=== PATIENT | female | born 1970 | race Caucasian/White ===

== ENCOUNTER → 2017-03-30 | Outpatient (CLI) | payer OTHER ==
[~2017-03-30] MED LIST: AMOX500C3 PO; COLE1TAB4 PO; LAMO100T16 PO; METO50TA7 PO; PRENTAB26 PO; TPRSR/50 PO
== END | disposition home or self-care (01) ==
LOC: C.PAPS 16:59
PROVIDERS: ATTEND Obstetrics & Gynecology
DX: Z12.4 Encounter for screening for malignant neoplasm of cervix (principal)

== ENCOUNTER 2019-12-22 13:07 | Observation (INO) ==
[2019-12-22] MEDS ORDERED: ONDANSETRON INJ 2 MG/ML 2 ML VIAL IV STA (13:28)
[2019-12-22] MEDS ORDERED: MoRPHine SULFATE 4 MG/ML 1 ML CARP\\VIAL IV STA (13:28)
[2019-12-22] MEDS ORDERED: ACETAMINOPHEN 1,000 MG/100 ML VIAL IV STA (13:28)
[2019-12-22] MEDS ORDERED: CEFAZOLIN 3000MG/72.5 ML BAG IV STA (13:33)
--- NOTE | 2019-12-22 13:39 | Emergency Department Note ---
Impression & Plan Trimalleolar fracture of ankle, open, Fall ED Provider Note NAME: ELENI WILL AGE: 49 SEX: F ARRIVES VIA: Ambulance INFORMANT: Patient, ED PROVIDER(S): Bairon Adkins MD CHIEF COMPLAINT: Left ankle pain, deformity. PLAN: Disposition: Admit. MEDICAL DECISION MAKING: The patient is a pleasant 49-year-old woman with a past medical history of seizure disorder well-controlled on Lamictal who presents emergency department with left ankle deformity after she slipped down steps and twisted her ankle. Denies head strike to LOC. Patient reports her last oral intake was 730 this morning. She otherwise reports feeling healthy prior to today. On arrival patient is uncomfortable but no acute distress, afebrile stable vital signs. She does have deformity of the left ankle with 1 cm wound of the left medial malleolus that appears consistent with open fracture. Plain film confirms trimalleolar fracture. Given suspicion for open fracture the patient was ordered for prophylactic Ancef and case was discussed with orthopedic surgery on-call, Dr. Martinez, who was in the operating room and agrees with plan for red uction with sedation in the ED and plan for likely OR., Basic blood work, EKG and chest x-ray were ordered. The patient's was consented for closed reduction under sedation, with the assistance of Dr. Martini, which was successful without complication per procedure note. Post reduction xray with near anatomic alignment achieved. WBC 12.2, nonspecific. H/H and platelets wnl. Chemistry without significant acidosis. CXR negative for acute process. EKG without overt acute ischemia. Patient admitted/taken to OR. Triage Nursing notes reviewed and agree them. Prior medical records reviewed Vital Signs: reviewed and remarkable for no significant abnormalities Differential diagnosis: Fracture, subluxation, dislocation, contusion, ligamentous injury, neurovascular, compartment syndrome, rhabdomyolysis, as well as other pathologies. ER treatment provided: See below. Diagnostics interpreted by me: ECG: NSR, 76 bpm, no ectopy, nonspecific TWA, no overt ST elevation or depression. Cardiac Monitoring: An order for continuous cardiac monitoring was placed and demonstrated NSR, 76 bpm, no ectopy Laboratory studies: See below Imaging studies: LEFT ANKLE 2 VIEWS CLINICAL HISTORY: Fall with left ankle injury. FINDINGS: Crosstable AP and lateral views of the left ankle are obtained. No prior studies are available for comparison at the time of dictation. The skeletal structures are well mineralized. There are distracted fractures of the medial and lateral malleoli. There is also a fracture of the posterior malleolus of the tibia. There is associated ankle joint dislocation. There is dorsal distraction of the talus by approximately 2 cm the tibiotalar articulation. There is also lateral distraction of the talus by approximately 1.5 cm. Joint effusion is noted. Soft tissue edema is present around the ankle. IMPRESSION: Trimalleolar fracture and dislocation of the ankle as above. -- XR chest 1V portable CLINICAL HISTORY: preop preoperative evaluation COMPARISON STUDY: 03/08/2014 FINDINGS: The bones soft tissues and hemidiaphragms are normal. The cardiomediastinal silhouette is normal. The lungs are clear. The pulmonary vasculature is normal. IMPRESSION: Negative chest. -- XR ankle LT 2V CLINICAL HISTORY: post reduction. Left ankle fracture/dislocation. COMPARISON STUDY: Left ankle 12/22/2019. FINDINGS: Interval reduction of the left ankle trimalleolar fracture and dislocation. The alignment is near-anatomic. Diffuse soft tissue swelling. Overlying splint material obscures fine bony detail. The posterior malleolus fragment demonstrates 2 mm of posterior displacement. IMPRESSION: Status post reduction of the left ankle trimalleolar fracture and dislocation with near-anatomic alignment. Consultation(s[place] [facility] [place] HPI: The patient is a pleasant 49-year-old woman with a past medical history of seizure disorder well-controlled on Lamictal who presents emergency department with left ankle deformity after she slipped down steps and twisted her ankle. Denies head strike to LOC. Patient reports her last oral intake was 730 this morning. She otherwise reports feeling healthy prior to today. ROS: See above HPI for pertinent positives & negatives. A total of 10 systems reviewed and were otherwise negative. PAST MEDICAL HISTORY:See Below PAST SURGICAL HISTORY:See Below FAMILY HISTORY:See Below SOCIAL HISTORY:See Below HOME MEDICATIONS:See Below ALLERGIES:See Below VITALS:See Below PHYSICAL EXAMINATION: GENERAL: Awake, alert, uncomfortable-appearing, in no distress HENT: Normocephalic, atraumatic. Oropharynx with dry mucous membranes and otherwise unremarkable. EYES: Normal conjunctiva. Sclera non-icteric. EOMI. No nystamgus. PEARRL. NECK: Supple. No nuchal rigidity. FROM. No JVD. RESPIRATORY: Clear to auscultation. CARDIAC: Regular rate, normal rhythm. Extremities warm and well perfused. Pulses equal. ABDOMEN: Soft, non-distended. No tenderness to palpation. No rebound or guarding. No masses. RECTAL: Deferred. MUSCULOSKELETAL: Chest examination reveals no tenderness. The back is symmetrical on inspection without obvious abnormality. There is no CVA tenderness to palpation. No joint edema. LOWER EXTREMITIES: Calves are equal size bilaterally and non-tender. No edema. No discoloration. NEURO: Normal sensorium. No sensory or motor deficits noted. SKIN: No rash or jaundice noted. ED COURSE: Procedures: Close Ankle Reduction Indication: Trimalleolar Fx. Verbal consent obtained. Risks and benefits were explained with the usual customary discussion. A time out was taken. Neurovascular examination before the procedure revealed no deficits. The patient's left ankle trimalleolar fracture was reduced by placing the patient supine held elevated and applying gentle downward inline and anterior traction on the foot. This resulted in an easy reduction without complication. Neurovascular examination after the procedure revealed no deficits. The patient's 1 cm medial malleolus wound was cleaned and irrigated. This was probed with sterile swab and is suspicious for puncture wound. Dressed with Xeroform and splinted with posterior/sugar tong splint. The patient had significant pain relief and tolerated the procedure well. 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 Beliefs That Will Affect Care: None Current Living Situation: Family Current Living Situation Comment: LIVES WITH SON Other Information That Helps Us Care for You: No Feels Safe at Home: Yes Safety Concerns: Feels Safe At This Time Smoking Status: Former smoker Tobacco Type: cigarettes ; Do You Dip or Chew Tobacco: No ; Smoking End Date: 11/20/2014 ; Second Hand Exposure: No ; Tobacco Cessation Education Requested by Patient: No Hx Alcohol Use: No Hx Substance Use: No Allergies Allergies Allergy/AdvReac Type Severity Reaction Status Date / Time No Known Allergies Allergy Verified 12/22/19 15:15 Home Meds Home Medications Medication Instructions Recorded Confirmed PNV cmb#[id number]-ferrous fumarate-FA 1 tab PO DAILY 02/25/19 12/22/19 [] cyanocobalamin (vitamin B-12) 1,000 mcg PO DAILY 02/25/19 12/22/19 [Vitamin B-12] fluticasone furoate-vilanterol 1 inh INHALATION DAILY 02/25/19 12/22/19 [Breo Ellipta] lamotrigine [Lamictal] 100 mg PO BID 02/25/19 12/22/19 metoprolol succinate [Toprol XL] 100 mg PO BID 02/25/19 12/22/19 omeprazole 40 mg PO HS 12/22/19 12/22/19 Results & Data (ED) Vital Signs Vital Signs - 24 hr 12/22/19 13:10 12/22/19 13:17 12/22/19 13:18 Temperature 36.8 C Temperature Source Oral Pulse Rate 100 H 113 H 105 H Pulse Rate [Apical] Pulse Rate [Left Finger] Pulse Rate from SpO2 Sensor 102 H 110 H Pulse Rhythm Regular Pulse Rhythm [Apical] Pulse Strength Normal Pulse Strength [Apical] Respiratory Rate 18 17 20 Respiratory Effort / Characteristics Non-Labored Spontaneous Respiratory Depth Normal Respiratory Pattern Regular Blood Pressure 139/108 H 139/108 H Blood Pressure [Right Arm] Blood Pressure Mean 116 118 Blood Pressure Mean [Right Arm] Blood Pressure Position Lying Blood Pressure Position [Right Arm] Pulse Oximetry 100 100 100 Oxygen Delivery Method Room Air Oxygen Flow Rate Sepsis Action Taken by Nursing No Action Required End-Tidal CO2 End Tidal CO2 (18-54mmHg) 12/22/19 13:30 12/22/19 13:31 12/22/19 13:43 Temperature Temperature Source Pulse Rate 99 H 105 H 92 H Pulse Rate [Apical] Pulse Rate [Left Finger] Pulse Rate from SpO2 Sensor 103 H 84 Pulse Rhythm Pulse Rhythm [Apical] Pulse Strength Pulse Strength [Apical] Respiratory Rate 19 23 14 Respiratory Effort / Characteristics Respiratory Depth Respiratory Pattern Blood Pressure 122/84 120/80 Blood Pressure [Right Arm] Blood Pressure Mean 89 93 Blood Pressure Mean [Right Arm] Blood Pressure Position Blood Pressure Position [Right Arm] Pulse Oximetry 100 99 Oxygen Delivery Method Oxygen Flow Rate Sepsis Action Taken by Nursing End-Tidal CO2 End Tidal CO2 (18-54mmHg) 12/22/19 13:55 12/22/19 14:00 12/22/19 14:01 Temperature Temperature Source Pulse Rate 99 H 101 H 102 H Pulse Rate [Apical] 99 H Pulse Rate [Left Finger] Pulse Rate from SpO2 Sensor 105 H 102 H Pulse Rhythm Regular Pulse Rhythm [Apical] Regular Pulse Strength Pulse Strength [Apical] Normal Respiratory Rate 16 16 Respiratory Effort / Characteristics Non-Labored Spontaneous Respiratory Depth Normal Respiratory Pattern Regular Blood Pressure 141/88 H Blood Pressure [Right Arm] 141/88 H Blood Pressure Mean 106 Blood Pressure Mean [Right Arm] 105 Blood Pressure Position Blood Pressure Position [Right Arm] Sitting Pulse Oximetry 100 100 100 Oxygen Delivery Method Nasal Cannula Room Air Oxygen Flow Rate 2 2 Sepsis Action Taken by Nursing End-Tidal CO2 17 23 End Tidal CO2 (18-54mmHg) 26 12/22/19 14:05 12/22/19 14:07 12/22/19 14:10 Temperature Temperature Source Pulse Rate 98 H 100 H Pulse Rate [Apical] 97 H 100 H Pulse Rate [Left Finger] Pulse Rate from SpO2 Sensor 99 H 103 H Pulse Rhythm Pulse Rhythm [Apical] Regular Regular Pulse Strength Pulse Strength [Apical] Normal Normal Respiratory Rate 18 20 Respiratory Effort / Characteristics Non-Labored Spontaneous Non-Labored Spontaneous Respiratory Depth Normal Normal Respiratory Pattern Regular Regular Blood Pressure 99/68 L 110/73 Blood Pressure [Right Arm] 99/68 L 110/73 Blood Pressure Mean 88 89 Blood Pressure Mean [Right Arm] 78 85 Blood Pressure Position Blood Pressure Position [Right Arm] Sitting Sitting Pulse Oximetry 100 100 100 Oxygen Delivery Method Nasal Cannula Nasal Cannula Oxygen Flow Rate 2 2 Sepsis Action Taken by Nursing End-Tidal CO2 17 23 End Tidal CO2 (18-54mmHg) 28 24 12/22/19 14:12 12/22/19 14:13 12/22/19 14:15 Temperature Temperature Source Pulse Rate 90 87 Pulse Rate [Apical] 95 H Pulse Rate [Left Finger] Pulse Rate from SpO2 Sensor 91 H 89 Pulse Rhythm Pulse Rhythm [Apical] Regular Pulse Strength Pulse Strength [Apical] Normal Respiratory Rate 21 Respiratory Effort / Characteristics Non-Labored Spontaneous Respiratory Depth Normal Respiratory Pattern Regular Blood Pressure 106/73 102/68 Blood Pressure [Right Arm] 106/73 Blood Pressure Mean 83 73 Blood Pressure Mean [Right Arm] 84 Blood Pressure Position Blood Pressure Position [Right Arm] Sitting Pulse Oximetry 100 100 100 Oxygen Delivery Method Nasal Cannula Oxygen Flow Rate 2 Sepsis Action Taken by Nursing End-Tidal CO2 19 26 End Tidal CO2 (18-54mmHg) 24 12/22/19 14:17 12/22/19 14:20 12/22/19 14:23 Temperature Temperature Source Pulse Rate 88 94 H 83 Pulse Rate [Apical] 89 Pulse Rate [Left Finger] Pulse Rate from SpO2 Sensor 89 93 H 86 Pulse Rhythm Pulse Rhythm [Apical] Regular Pulse Strength Pulse Strength [Apical] Normal Respiratory Rate 18 Respiratory Effort / Characteristics Non-Labored Spontaneous Respiratory Depth Normal Respiratory Pattern Regular Blood Pressure 106/77 113/80 111/72 Blood Pressure [Right Arm] 106/77 Blood Pressure Mean 82 92 82 Blood Pressure Mean [Right Arm] 86 Blood Pressure Position Blood Pressure Position [Right Arm] Sitting Pulse Oximetry 100 84 L 100 Oxygen Delivery Method Nasal Cannula Oxygen Flow Rate 2 Sepsis Action Taken by Nursing End-Tidal CO2 27 24 24 End Tidal CO2 (18-54mmHg) 12/22/19 14:26 12/22/19 14:30 12/22/19 14:31 Temperature Temperature Source Pulse Rate 98 H 96 H 89 Pulse Rate [Apical] Pulse Rate [Left Finger] Pulse Rate from SpO2 Sensor 97 H 96 H 91 H Pulse Rhythm Pulse Rhythm [Apical] Pulse Strength Pulse Strength [Apical] Respiratory Rate Respiratory Effort / Characteristics Respiratory Depth Respiratory Pattern Blood Pressure 104/73 101/79 Blood Pressure [Right Arm] Blood Pressure Mean 80 82 Blood Pressure Mean [Right Arm] Blood Pressure Position Blood Pressure Position [Right Arm] Pulse Oximetry 100 100 100 Oxygen Delivery Method Oxygen Flow Rate Sepsis Action Taken by Nursing End-Tidal CO2 End Tidal CO2 (18-54mmHg) 12/22/19 14:45 12/22/19 15:00 12/22/19 15:01 Temperature Temperature Source Pulse Rate 90 95 H Pulse Rate [Apical] 100 H Pulse Rate [Left Finger] Pulse Rate from SpO2 Sensor 89 96 H Pulse Rhythm Pulse Rhythm [Apical] Regular Pulse Strength Pulse Strength [Apical] Normal Respiratory Rate 20 Respiratory Effort / Characteristics Non-Labored Spontaneous Respiratory Depth Normal Respiratory Pattern Regular Blood Pressure 99/71 L Blood Pressure [Right Arm] 101/79 Blood Pressure Mean 76 Blood Pressure Mean [Right Arm] 86 Blood Pressure Position Blood Pressure Position [Right Arm] Sitting Pulse Oximetry 100 100 100 Oxygen Delivery Method Room Air Oxygen Flow Rate Sepsis Action Taken by Nursing End-Tidal CO2 End Tidal CO2 (18-54mmHg) 12/22/19 15:30 12/22/19 16:00 12/22/19 16:41 Temperature Temperature Source Pulse Rate 86 84 Pulse Rate [Apical] Pulse Rate [Left Finger] Pulse Rate from SpO2 Sensor Pulse Rhythm Pulse Rhythm [Apical] Pulse Strength Pulse Strength [Apical] Respiratory Rate 16 Respiratory Effort / Characteristics Respiratory Depth Respiratory Pattern Blood Pressure 109/62 Blood Pressure [Right Arm] Blood Pressure Mean 77 Blood Pressure Mean [Right Arm] Blood Pressure Position Blood Pressure Position [Right Arm] Pulse Oximetry 95 Oxygen Delivery Method Room Air Oxygen Flow Rate Sepsis Action Taken by Nursing End-Tidal CO2 End Tidal CO2 (18-54mmHg) 12/22/19 16:51 12/22/19 19:31 Temperature 36.5 C 36.8 C Temperature Source Oral Temporal Artery Scan Pulse Rate Pulse Rate [Apical] 91 H Pulse Rate [Left Finger] 86 Pulse Rate from SpO2 Sensor Pulse Rhythm Pulse Rhythm [Apical] Regular Pulse Strength Pulse Strength [Apical] Respiratory Rate 16 18 Respiratory Effort / Characteristics Non-Labored Spontaneous Non-Labored Spontaneous Respiratory Depth Normal Normal Respiratory Pattern Regular Regular Blood Pressure Blood Pressure [Right Arm] 102/73 96/58 L Blood Pressure Mean Blood Pressure Mean [Right Arm] 82 70 Blood Pressure Position Blood Pressure Position [Right Arm] Sitting Lying Pulse Oximetry 98 98 Oxygen Delivery Method Room Air Oxymask Oxygen Flow Rate 8 Sepsis Action Taken by Nursing End-Tidal CO2 End Tidal CO2 (18-54mmHg) Laboratory Data Attestation: I reviewed the patient's lab results. Result diagrams: 12/22/19 13:14 12/22/19 13:14 Lab Results 12/22/19 12/22/19 12/22/19 Range/Units 13:14 13:14 13:14 WBC 12.25 H (4.8-10.8) K/uL RBC 3.76 L (4.2-5.4) M/uL Hgb 13.3 (12.0-16.0) g/dL Hct 39.4 (37-47) % MCV 104.8 H (80-100) fL MCH 35.4 H (25-34) pg MCHC 33.8 (32-36) g/dL RDW Std Deviation 61.6 H (36.4-46.3) fL RDW Coeff of Gabriel 16.1 H (11.5-14.5) % Plt Count 231 (130-400) K/uL MPV 11.9 H (7.4-10.4) fL Immature Gran % (Auto) 0.2 % Neut % (Auto) 50.5 % Lymph % (Auto) 36.3 % [place] % (Auto) 11.8 % Eos % (Auto) 1.0 % Baso % (Auto) 0.2 % Neut # (Auto) 6.17 (1.4-6.5) K/uL Lymph # (Auto) 4.45 H (1.2-3.4) K/uL [place] # (Auto) 1.45 H (0.11-0.59) K/uL Eos # (Auto) 0.12 (0-0.5) K/uL Baso # (Auto) 0.03 (0-0.2) K/uL Immature Gran # (Auto) 0.03 H (0.00-0.02) K/uL PT 10.4 (9.0-12.0) Seconds INR 1.0 (0.9-1.1) APTT (21.0-31.0) Seconds PTT Ratio Sodium 135 L (136-145) mmol/L Potassium 3.4 L (3.5-5.1) mmol/L Chloride 105 (98-107) mmol/L Carbon Dioxide 20 L (21-32) mmol/L Anion Gap 10.0 (3-11) BUN 3 L (7-18) mg/dl Creatinine 0.84 (0.6-1.2) mg/dl Est Cr Clr Drug Dosing 72.1 ml/min Est GFR ( Amer) 93.9 Est GFR (Non-Af Amer) 81.0 BUN/Creatinine Ratio 3.9 L (10-20) Glucose 96 (70-99) mg/dl Calcium 8.4 L (8.5-10.1) mg/dl HCG, Qual (Negative) COVID-19 PCR (Negative) SARS-CoV-2 RNA (RT-PCR) Blood Type Antibody Screen 12/22/19 12/22/19 12/22/19 Range/Units 13:14 13:14 14:22 WBC (4.8-10.8) K/uL RBC (4.2-5.4) M/uL Hgb (12.0-16.0) g/dL Hct (37-47) % MCV (80-100) fL MCH (25-34) pg MCHC (32-36) g/dL RDW Std Deviation (36.4-46.3) fL RDW Coeff of Gabriel (11.5-14.5) % Plt Count (130-400) K/uL MPV (7.4-10.4) fL Immature Gran % (Auto) % Neut % (Auto) % Lymph % (Auto) % [place] % (Auto) % Eos % (Auto) % Baso % (Auto) % Neut # (Auto) (1.4-6.5) K/uL Lymph # (Auto) (1.2-3.4) K/uL [place] # (Auto) (0.11-0.59) K/uL Eos # (Auto) (0-0.5) K/uL Baso # (Auto) (0-0.2) K/uL Immature Gran # (Auto) (0.00-0.02) K/uL PT (9.0-12.0) Seconds INR (0.9-1.1) APTT 24.0 (21.0-31.0) Seconds PTT Ratio 0.9 Sodium (136-145) mmol/L Potassium (3.5-5.1) mmol/L Chloride (98-107) mmol/L Carbon Dioxide (21-32) mmol/L Anion Gap (3-11) BUN (7-18) mg/dl Creatinine (0.6-1.2) mg/dl Est Cr Clr Drug Dosing ml/min Est GFR ( Amer) Est GFR (Non-Af Amer) BUN/Creatinine Ratio (10-20) Glucose (70-99) mg/dl Calcium (8.5-10.1) mg/dl HCG, Qual Negative (Negative) COVID-19 PCR (Negative) SARS-CoV-2 RNA (RT-PCR) Blood Type A Positive Antibody Screen NEGATIVE 12/22/19 12/22/19 Range/Units 15:15 15:15 WBC (4.8-10.8) K/uL RBC (4.2-5.4) M/uL Hgb (12.0-16.0) g/dL Hct (37-47) % MCV (80-100) fL MCH (25-34) pg MCHC (32-36) g/dL RDW Std Deviation (36.4-46.3) fL RDW Coeff of Gabriel (11.5-14.5) % Plt Count (130-400) K/uL MPV (7.4-10.4) fL Immature Gran % (Auto) % Neut % (Auto) % Lymph % (Auto) % [place] % (Auto) % Eos % (Auto) % Baso % (Auto) % Neut # (Auto) (1.4-6.5) K/uL Lymph # (Auto) (1.2-3.4) K/uL [place] # (Auto) (0.11-0.59) K/uL Eos # (Auto) (0-0.5) K/uL Baso # (Auto) (0-0.2) K/uL Immature Gran # (Auto) (0.00-0.02) K/uL PT (9.0-12.0) Seconds INR (0.9-1.1) APTT (21.0-31.0) Seconds PTT Ratio Sodium (136-145) mmol/L Potassium (3.5-5.1) mmol/L Chloride (98-107) mmol/L Carbon Dioxide (21-32) mmol/L Anion Gap (3-11) BUN (7-18) mg/dl Creatinine (0.6-1.2) mg/dl Est Cr Clr Drug Dosing ml/min Est GFR ( Amer) Est GFR (Non-Af Amer) BUN/Creatinine Ratio (10-20) Glucose (70-99) mg/dl Calcium (8.5-10.1) mg/dl HCG, Qual (Negative) COVID-19 PCR NEGATIVE (Negative) SARS-CoV-2 RNA (RT-PCR) Cancelled Blood Type Antibody Screen Administered Medications Acetaminophen (Tylenol) 1,000 mg PO Q8 [facility] Stop: 01/21/20 21:59 Last Admin: 12/22/19 22:21 Dose: 1,000 mg Documented by: [id number] Aspirin (Ecotrin Ectab) 81 mg PO BID [facility] Stop: 01/21/20 20:59 Last Admin: 12/22/19 22:19 Dose: 81 mg Documented by: [id number] Docusate Sodium (Colace) 100 mg PO BID [facility] Stop: 01/21/20 20:59 Last Admin: 12/22/19 22:19 Dose: 100 mg Documented by: [id number] Sodium Chloride (Nss 1000ml) 1,000 mls @ 125 mls/hr IV .Q8H [facility] Stop: 01/21/20 13:29 Last Admin: 12/22/19 23:18 Dose: Not Given Documented by: [id number] Infusion: 12/22/19 23:18 Dose: 0 mls/hr Documented by: [id number] Admin: 12/22/19 13:41 Dose: 125 mls/hr Documented by: [id number] Clindamycin Phosphate (Cleocin) 600 mg in 54 mls @ 100 mls/hr IV ONCE [facility] Stop: 12/23/19 19:14 Last Infusion: 12/22/19 21:40 Dose: 0 mls/hr Documented by: [id number] Admin: 12/22/19 17:43 Dose: 100 mls/hr Documented by: [id number] Cefazolin Sodium (Ancef 1000mg) 1,000 mg in 7.5 mls @ 2.5 mls/min IV Q8H [facility]; Protocol Stop: 12/23/19 06:02 Last Admin: 12/22/19 23:10 Dose: 2.5 mls/min Documented by: [id number] Sodium Chloride (Nss 1000ml) 1,000 mls @ 100 mls/hr IV .Q10H [facility] Stop: 12/23/19 06:00 Last Admin: 12/22/19 23:17 Dose: 100 mls/hr Documented by: [id number] Lamotrigine (Lamictal) 100 mg PO BID [facility] Stop: 01/21/20 20:59 Last Admin: 12/22/19 22:18 Dose: 100 mg Documented by: [id number] Metoprolol Succinate (Toprol Xl) 100 mg PO BID [facility] Stop: 01/21/20 20:59 Last Admin: 12/22/19 22:18 Dose: 100 mg Documented by: [id number] Ondansetron HCl (Zofran) 4 mg IV ONCE PRN PRN Reason: PACU Use Only-Nausea/Vomiting Stop: 12/23/19 03:51 Last Admin: 12/22/19 19:54 Dose: 4 mg Documented by: [id number] Oxycodone HCl (Roxicodone Immediate Rel) 5 - 10 mg PO Q4H PRN PRN Reason: Pain or Pre PT Stop: 01/05/20 20:59 Last Admin: 12/22/19 23:10 Dose: 10 mg Documented by: [id number] Pantoprazole Sodium (Protonix) [address] [facility] Stop: 01/21/20 21:59 Last Admin: 12/22/19 22:19 Dose: 40 mg Documented by: [id number] Sennosides (Senokot) 17.2 mg PO [facility] Stop: 01/21/20 20:59 Last Admin: 12/22/19 22:18 Dose: 17.2 mg Documented by: [id number] Discontinued Medications Bacitracin (Bacitracin) Confirm Administered Dose 100,000 units .ROUTE .STK-MED ONE Stop: 12/22/19 17:58 Last Admin: 12/22/19 19:06 Dose: 100,000 units Documented by: [id number] Bupivacaine HCl (Marcaine 0.5% Mpf) Confirm Administered Dose 30 ml .ROUTE .STK- MED ONE Stop: 12/22/19 17:17 Last Admin: 12/22/19 19:06 Dose: 22 ml Documented by: [id number] Cefazolin Sodium (Ancef 3000mg) 3,000 mg IV NOW STA Stop: 12/22/19 13:34 Last Admin: 12/22/19 15:43 Dose: Not Given Documented by: [id number] Epinephrine HCl (Epinephrine) Confirm Administered Dose 1 mg .ROUTE .STK-MED ONE Stop: 12/22/19 17:17 Last Admin: 12/22/19 19:07 Dose: 0.15 mg Documented by: [id number] Fentanyl Citrate (Fentanyl Citrate) Confirm Administered Dose 100 mcg .ROUTE .STK-MED ONE Stop: 12/22/19 14:09 Last Admin: 12/22/19 14:10 Dose: 25 mcg Documented by: [id number] Acetaminophen (Ofirmev) 1,000 mg in 100 mls @ 400 mls/hr IV NOW STA Stop: 12/22/19 13:42 Last Infusion: 12/22/19 14:00 Dose: 0 mls/hr Documented by: [id number] Admin: 12/22/19 13:40 Dose: 400 mls/hr Documented by: [id number] Cefazolin Sodium (Ancef 2000mg) 2,000 mg in 15 mls @ 3.75 mls/min IV PREOP ONE Stop: 12/22/19 15:11 Last Admin: 12/22/19 15:42 Dose: 3.75 mls/min Documented by: [id number] Metoprolol Tartrate (Lopressor) 5 mg IV NOW STA Stop: 12/22/19 20:19 Last Admin: 12/22/19 20:21 Dose: 5 mg Documented by: [id number] Metoprolol Tartrate (Lopressor) Confirm Administered Dose 5 mg IV .STK-MED ONE Stop: 12/22/19 20:20 Last Admin: 12/22/19 21:01 Dose: Not Given Documented by: [id number] Morphine Sulfate (Morphine Sulfate) 4 mg IV NOW STA Stop: 12/22/19 13:29 Last Admin: 12/22/19 13:42 Dose: 4 mg Documented by: [id number] Ondansetron HCl (Zofran) 4 mg IV NOW STA Stop: 12/22/19 13:29 Last Admin: 12/22/19 13:42 Dose: 4 mg Documented by: [id number] Ondansetron HCl (Zofran) Confirm Administered Dose 4 mg .ROUTE .STK-MED ONE Stop: 12/22/19 19:51 Last Admin: 12/22/19 21:01 Dose: Not Given Documented by: [id number] Propofol (Diprivan) 60 mg IV NOW STA Stop: 12/22/19 13:42 Last Admin: 12/22/19 14:29 Dose: 80 mg Documented by: [id number] Cosigned by: [id number] Blood Pressure Blood Pressure Findings: Elevated blood pressure Blood Pressure Disposition: elevated BP felt to be situational Discharge Plan Visit Data *Final* Discharge Date/Time: 12/22/19 16:41 Chief Complaint: Ankle Pain ED Provider: Bairon Adkins Discharge Problem: Trimalleolar fracture of ankle, open, Fall Patient Disposition: Admitted As Inpatient Discharge Instructions Interventions: ED Discharge Assessment Last Done: 12/22/19 16:41 Discharge Problem: Trimalleolar fracture of ankle, open Qualifiers: Encounter type: initial encounter Open fracture type: open type I or II La terality: left Qualified Code(s): S82.852B - Displaced trimalleolar fracture of left lower leg, initial encounter for open fracture type I or II Fall Qualifiers: Encounter type: initial encounter Qualified Code(s): W19.XXXA - Unspecified fall, initial encounter
[2019-12-22] MEDS ORDERED: PROPOFOL IV EMULSION 10 MG/ML 20 ML VIAL IV STA (13:41)
[2019-12-22] MEDS: SODIUM CHLORIDE 0.9% 1000ML 1,000 ML IV SCH ×2 (13:41→23:18)
[2019-12-22 13:54] LABS: Basophils # (auto) 0.03 K/uL (0-0.2); Basophils % (auto) 0.2 %; Eosinophils # (auto) 0.12 K/uL (0-0.5); Hematocrit (blood only) 39.4 % (37-47); Hemoglobin 13.3 g/dL (12.0-16.0); Immature Granulocytes # (auto) 0.03 K/uL (0.00-0.02); Immature Granulocytes % (auto) 0.2 %; Lymphocytes # (auto) 4.45 K/uL (1.2-3.4); Lymphocytes % (auto) 36.3 %; Mean Corpuscular Hemoglobin 35.4 pg (25-34); Mean Corpuscular Hgb Conc 33.8 g/dL (32-36); Mean Corpuscular Volume 104.8 fL (80-100); Mean Platelet Volume 11.9 fL (7.4-10.4); Monocytes # (auto) 1.45 K/uL (0.11-0.59); Monocytes % (auto) 11.8 %; Neutrophils # (auto) 6.17 K/uL (1.4-6.5); Neutrophils % (auto) 50.5 %; Platelet Count 231 K/uL (130-400); RDW Coefficient of Variation 16.1 % (11.5-14.5); RDW Standard Deviation 61.6 fL (36.4-46.3); Red Blood Count 3.76 M/uL (4.2-5.4); White Blood Count 12.25 K/uL (4.8-10.8)
[2019-12-22 14:03] LABS: BUN Creatinine Ratio 3.9 (10-20); Calcium 8.4 mg/dl (8.5-10.1); Creatinine Clr Calc Pharmacy 72.1 ml/min; Est GFR (African American) 93.9; Potassium 3.4 mmol/L (3.5-5.1)
--- NOTE | 2019-12-22 14:03 | XRay Report ---
XR chest 1V portable CLINICAL HISTORY: preop preoperative evaluation COMPARISON STUDY: 03/08/2014 FINDINGS: The bones soft tissues and hemidiaphragms are normal. The cardiomediastinal silhouette is n ormal. The lungs are clear. The pulmonary vasculature is normal. IMPRESSION: Negative chest. ACT 112: Negative or not required by law. The above report was generated using voice recognition software. It may contain grammatical, syntax or spelling errors. Electronically signed by: Randy Casey M.D. 12/22/2019 2:02 PM
--- NOTE | 2019-12-22 14:05 | XRay Report ---
LEFT ANKLE 2 VIEWS CLINICAL HISTORY: Fall with left ankle injury. FINDINGS: Crosstable AP and lateral views of the left ankle are obtained. No prior studies are availa ble for comparison at the time of dictation. The skeletal structures are well mineralized. There are distracted fractures of the medial and lateral malleoli. There is also a fracture of the posterior ma lleolus of the tibia. There is associated ankle joint dislocation. There is dorsal distraction of the talus by approximately 2 cm the tibiotalar articulation. There is also lateral distraction of the ta kameron by approximately 1.5 cm. Joint effusion is noted. Soft tissue edema is present around the ankle. IMPRESSION: Trimalleolar fracture and dislocation of the ankle as above. Electronically signed by: Jose Leblanc M.D. 12/22/2019 2:04 PM
[2019-12-22] MEDS ORDERED: fentaNYL citrate 100 MCG/2 ML VIAL ONE ×3 (14:08→17:54)
[2019-12-22 14:25] LABS: Prothrombin Time 10.4 Seconds (9.0-12.0)
--- NOTE | 2019-12-22 14:37 | Emergency Department Note ---
Pre Sedation Assessment Vital Signs Temp Pulse Resp BP Pulse Ox 12/22/19 13:18 36.8 C 105 H 20 139/108 H 100 Cardiovascular RRR, no murmur, no edema + regular rate Respiratory normal respiratory effort, lungs clear to auscultation Pre-Sedation Airway Assessment Smoking Status: Former smoker Hx Sleep Apnea: No Hx Difficult Intubation: No Short, Thick Neck: No Thyromental Distance: > or= 3.5 Finger Breadths Oral Cavity: + WNL (No teeth) Mallampati Class: I ASA: ASA2 NPO Status Date of Last Intake of Fluids: 12/22/19 Time of Last Intake of Fluids: 06:00 Procedure Planning Contraindications for Sedation: none Notes The planned sedation has been discussed with the patient. Informed Consent was obtained. I have identified the patient, determined the appropriateness of sedation and have assessed the patient immediately prior to the procedure. All medicine(s) and interventions are by my order. : Trimalleolar fracture of ankle, open Qualifiers: Encounter type: initial encounter Laterality: left
--- NOTE | 2019-12-22 14:39 | Emergency Department Note ---
Post Sedation Assessment Vital Signs Temp Pulse Resp BP Pulse Ox 12/22/19 13:18 36.8 C 105 H 20 139/108 H 100 Recovery Score Activity: Moves 4 extremities Post Sedation Plan On clinical assessment, the patient appears to have tolerated the sedation without complications. Patient is recovering as anticipated. Patient will continue to be monitored by nursing and may be discharged when sedation discharge criteria are met per below protocol. Upon Completions of procedure up to 15 minutes continue every 5 minute vital signs and the P.A.R. score; then discharge to a Phase I or Fast Track to Phase II per the following guidelines: * Discharge Patient to appropriate Phase II area if PAR is 8 or greater or return to pre- procedure baseline. The post - procedure orders will be as directed. * If PAR score is less than 8 or not return to pre-procedure baseline then patient will follow Phase I monitoring till PAR is reached for Phase II. The Phase I may be done in procedure room or may call to secure a Phase I area. * If naloxone or flumazenil are used for reversal, hold in Phase I for continued monitoring from when last reversal dose was given for a minimum of 60 minutes or longer pending the nurse and/or physician discretion of patient condition before discharge to Phase II. Please call the Sedation Physician to re-evaluate and complete post-note for discharge to Phase II area. Do NOT discharge from procedure sedation or Phase 1 until post- sedation evaluation note is complete by procedure /sedation MD Sedation Discharge Instructions to be given to the patient at discharge to home. : Trimalleolar fracture of ankle, open Qualifiers: Encounter type: initial encounter Laterality: left
--- NOTE | 2019-12-22 14:39 | XRay Report ---
XR ankle LT 2V CLINICAL HISTORY: post reduction. Left ankle fracture/dislocation. COMPARISON STUDY: Left ankle 12/22/2019. FINDINGS: Interval reduction of the left ankle trimalleolar fracture and dislocation. The alignment i s near-anatomic. Diffuse soft tissue swelling. Overlying splint material obscures fine bony detail. T he posterior malleolus fragment demonstrates 2 mm of posterior displacement. IMPRESSION: Status post reduction of the left ankle trimalleolar fracture and dislocation with near- anatomic alignment. ACT 112: Negative or not required by law. Electronically signed by: Harley Peoples M.D. 12/22/2019 2:38 PM
--- NOTE | 2019-12-22 14:41 | Emergency Department Note ---
ED Visit Note Procedural Sedation Indication sedation for reduction of open fracture. Total time: 15 minutes. Start time: 1403 End time: 1418 Written consent was obtained after the risks and benefits were explained to the patient, including, but not limited to aspiration, allergic reaction, breathing difficulties, cardiac complications, vomiting, pain, event recall, bleeding, and/or infection. Pre-sedation examination and paperwork completed. The patient was on 100% oxygen via NRB prior to the procedure. Continous end tidal CO2 monitoring, pulse oximetry, and cardiac monitoring were utilized. Suction, airway equipment, medications, respiratory equipment, and appropriate personnel were prepared prior to the initiation of the procedure. A time out was taken. Sedation was achieved utilizing 80 mg of propofol. After I observed the patient had reached the appropriate level of sedation the main procedure was performed without complication. Sedation was discontinued and the monitoring continued. The patient recovered quickly from the effects of the medication without complication or adverse event. . : Trimalleolar fracture of ankle, open Qualifiers: Encounter type: initial encounter Laterality: left
[2019-12-22] MEDS ORDERED: CEFAZOLIN 2000MG 2,000 MG/15 ML SYR IV ONE (15:08)
--- NOTE | 2019-12-22 15:18 | History & Physical Report ---
Date of Service December 22, 2019 Assessment & Plan (1) Trimalleolar fracture of ankle, open: The patient unfortunately has sustained an open trimalleolar ankle fracture. The wound is currently dressed and she is in a sugar tong splint. But given the nature of the injury the and with it being open we discussed that this is something we would like to proceed with irrigation debridement and open reduction internal fixation in a relatively expeditious manner. I am going to start her on antibiotics now. She has no history or symptoms consistent with COVID-19 but we will have a rapid test done as she is proceeding to the operating room for for urgent irrigation debridement and of reduction to fixation of her open trimalleolar ankle fracture. Discussed the risks, benefits, alternatives of the surgery these are including but not limited to infection, pain, stiffness, nonunion, need for revision surgery, damage to blood vessels, damage to nerves, DVT, PE, risks of anesthesia. She voices understanding wishes to proceed with surgery. History of Present Illness Primary Care Provider: Segun Osborne MD The patient is a 49-year-old female is coming down a set of stairs. She missed a step and came down wrong on the foot felt a pop and crack and had immediate pain and inability to bear weight. She was seen and evaluated the emergency room. X-rays were obtained and demonstrated displaced dislocated trimalleolar ankle fracture with laceration over the medial side consistent with an open fracture. She was reduced per the emergency room staff. She states she is much more comfortable now that she has been reduced. She denies any other symptoms but any headache chest cough shortness of breath chest pain loss of taste or smell. She has a past medical history of seizures controlled with left ictal. She states her last seizure was 2015. She also has a history of SVT which she takes metoprolol for. She had been on verapamil but this is been discontinued. Allergies Allergy/AdvReac Type Severity Reaction Status Date / Time No Known Allergies Allergy Verified 12/22/19 15:15 Home Medications Home Medications Medication Instructions Recorded Confirmed Type PNV cmb#95-ferrous fumarate-FA 1 tab PO DAILY 02/25/19 12/22/19 History [] cyanocobalamin (vitamin B-12) 1,000 mcg PO DAILY 02/25/19 12/22/19 History [Vitamin B-12] fluticasone furoate-vilanterol 1 inh INHALATION DAILY 02/25/19 12/22/19 History [Breo Ellipta] lamotrigine [Lamictal] 100 mg PO BID 02/25/19 12/22/19 History metoprolol succinate [Toprol XL] 100 mg PO BID 02/25/19 12/22/19 History omeprazole 40 mg PO HS 12/22/19 12/22/19 History Past Med/Surg History Medical History SVT (supraventricular tachycardia) Surgical History History of cholecystectomy Social History Feels Safe at Home: Yes Smoking Status: Former smoker Physical Exam Constitutional: WD/WN, vitals as above Neck: normal visual inspection Respiratory: normal respiratory effort Cardiovascular: Extremities: no edema Results & Data Results & Data ([facility]) Vital Signs (Past 12 Hours) Vital Signs Temp Pulse Pulse Resp BP BP Pulse Ox 12/22/19 14:45 100 H 20 101/79 100 12/22/19 14:17 89 18 106/77 100 12/22/19 14:12 95 H 21 106/73 100 12/22/19 14:10 100 H 20 110/73 100 12/22/19 14:05 97 H 18 99/68 L 100 12/22/19 14:00 99 H 16 141/88 H 100 12/22/19 13:55 99 H 16 100 12/22/19 13:18 36.8 C 105 H 20 139/108 H 100 (1) Trimalleolar fracture of ankle, open Encounter type: initial encounter Laterality: left
[2019-12-22] MEDS ORDERED: ROPIVACAINE 0.5% 5 MG/ML 30 ML VIAL ONE (15:40)
--- NOTE | 2019-12-22 15:41 | Anesthesiology Consultation ---
Date of Service December 22, 2019 Assessment & Plan (1) Encounter for pre-operative examination: History Surgery Operation Date: 12/22/19 17:05 Proposed Procedures p Left Open Ankle Fracture Incision and Drainage, Left Open Ankle Fracture Open Reduction Internal Fixation - Jordy Martinez MD Height/Weight Height: 5 ft 5 in Weight: 57 kg Allergies Allergy/AdvReac Type Severity Reaction Status Date / Time No Known Allergies Allergy Verified 12/22/19 15:15 Medications Home Medications Medication Instructions Recorded Confirmed Last Taken PNV cmb#95-ferrous fumarate-FA 1 tab PO DAILY 02/25/19 12/22/19 12/22/19 [] cyanocobalamin (vitamin B-12) 1,000 mcg PO DAILY 02/25/19 12/22/19 12/22/19 [Vitamin B-12] fluticasone furoate-vilanterol 1 inh INHALATION DAILY 02/25/19 12/22/19 Unknown [Breo Ellipta] lamotrigine [Lamictal] 100 mg PO BID 02/25/19 12/22/19 12/22/19 metoprolol succinate [Toprol XL] 100 mg PO BID 02/25/19 12/22/19 12/22/19 omeprazole 40 mg PO HS 12/22/19 12/22/19 Unknown Active Medications Generic Name Dose Route Start Last Admin Trade Name Freq PRN Reason Stop Dose Admin Sodium Chloride 1,000 mls @ 125 mls/hr 12/22/19 13:30 12/22/19 13:41 Nss 1000ml IV 01/21/20 13:29 125 mls/hr .Q8H TRISTON Administration Past Medical History Medical History Bronchitis (Inactive) Epilepsy (Inactive) SVT (supraventricular tachycardia) Tobacco abuse (Inactive 03/08/14) Past Surgical History Surgical History (Updated 12/22/19 @ 15:41 by Lety Palafox MD) History of cholecystectomy Hx of appendectomy (Resolved) Hx of cholecystectomy (Resolved) S/P ACL repair (Resolved) Social History Smoking Status: Former smoker Physical Exam Vital Signs Last Vital Signs Temp 36.8 C 12/22/19 13:18 Pulse 84 12/22/19 16:00 Resp 16 12/22/19 16:00 BP 109/62 12/22/19 16:00 Pulse Ox 95 12/22/19 16:00 Testing Laboratory Results 12/22/19 13:14 12/22/19 13:14 PT 10.4 Seconds (9.0-12.0) 12/22/19 13:14 INR 1.0 (0.9-1.1) 12/22/19 13:14 APTT 24.0 Seconds (21.0-31.0) 12/22/19 13:14 Blood Type A Positive 12/22/19 14:22 Antibody Screen NEGATIVE 12/22/19 14:22 Electrocardiogram Date: 12/22/19 Findings: + NSR @ nonspecific t wave changes Chest X-Ray Date: 12/22/19 IMPRESSION: Negative ches
[2019-12-22 15:48] LABS: Partial Thromboplastin Ratio 0.9
[2019-12-22 16:07] LABS: Pregnancy Test, Serum Negative (Negative)
[2019-12-22] MEDS ORDERED: ONDANSETRON INJ 2 MG/ML 2 ML VIAL ONE ×2 (17:03→19:50)
[2019-12-22] MEDS ORDERED: PROPOFOL IV EMULSION 10 MG/ML 20 ML VIAL IV ONE (17:03)
[2019-12-22] MEDS ORDERED: LIDOCAINE HCL 2% 2 ML VIAL/AMP(20MG/ML) INFIL ONE (17:03)
[2019-12-22] MEDS ORDERED: MIDAZOLAM HCL 1 MG/ML 2ML VIAL ONE (17:04)
[2019-12-22] MEDS ORDERED: SUCCINYLCHOLINE 100MG/5ML SYR IV ONE (17:09)
[2019-12-22] MEDS ORDERED: EPINEPHrine INJ 1 MG/ML AMP ONE (17:16)
[2019-12-22] MEDS ORDERED: BUPIVACAINE 0.5 % 5 MG/1 ML MPF 30ML VIAL ONE (17:16)
[2019-12-22] MEDS ORDERED: ROCURONIUM BROMIDE 10 MG/ML 5 ML VIAL IV ONE (17:33)
[2019-12-22] MEDS ORDERED: DEXAMETHASONE SOD INJ 4 MG/ML VIAL ONE (17:33)
[2019-12-22] MEDS ORDERED: CLINDAMYCIN PHOS 300 MG/2 ML VIAL ONE (17:42)
[2019-12-22] MEDS ORDERED: BACITRACIN INJ 50,000 UNIT VIAL ONE (17:57)
[2019-12-22] MEDS ORDERED: NEOSTIGMINE METHYLSULFATE 5 MG/5 ML SYR ONE (18:48)
[2019-12-22] MEDS ORDERED: GLYCOPYRROLATE 0.2 MG/ML VIAL ONE (18:48)
[2019-12-22] MEDS ORDERED: CLINDAMYCIN 600 MG/54 ML BAG IV SCH (19:15)
--- NOTE | 2019-12-22 19:18 | Fluoroscopy Report ---
FL ankle LT 2V CLINICAL HISTORY: ORIF LEFT ANKLE COMPARISON STUDY: Left ankle radiographs December 22, 2019. FLUOROSCOPY TIME: 30.9 seconds. FLUOROSCOPIC IMAGES: 4 FINDINGS: These images demonstrate internal fixation of the left fibular fracture with plate and scre ws. 2 screws fixate the medial malleolar fracture. Hardware is intact. Fracture alignment appears elayne tomic. There are no unexpected radiopaque foreign bodies. Alignment of the ankle mortise appears nani omic. IMPRESSION: Fluoroscopy provided for left ankle internal fixation. ACT 112: Negative or not required by law. Electronically signed by: Jose A Garcia M.D. 12/22/2019 7:17 PM
--- NOTE | 2019-12-22 19:19 | Operative Report ---
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 She sustained a fracture dislocation with an open injury on the medial side of the left ankle. She was provisionally reduced in the emergency room. She was given IV antibiotics in the emergency room. She presents for irrigation debridement and open reduction total fixation of her open trimalleolar ankle fracture Description of Procedure Risks benefits and alternatives of surgery including but not limited to infection, DVT, pain, stiffness, nonunion, need for revision surgery, damage to blood vessels damage to nerves or risks of anesthesia were discussed with the patient and she wished to proceed. Patient was identified in the laterality was confirmed and marked. A well-padded tourniquet was applied and then the limb was prepped and draped in standard manner with Betadine. The limb was exsanguinated and the tourniquet was inflated. I identified the region of her medial sided wound. This measured about 1 cm diameter. I sharply incised and sharply debrided down to the level of bone. There was no significant gross contamination noted anywhere in the wound. I freshened the skin edges. The wound was then thoroughly irrigated with 9 L of Pulsavac fluid. We then changed our gloves and placed a new drape down. I made a longitudinal incision over the distal aspect of the fibula. I sharply incised the skin and then used Bovie electrocautery to achieve hemostasis. I then dissected down to the fibular fracture cleared it of any interposing soft tissue and then reduced the fracture with a crab claw clamp. I placed a lag screw in the typical fashion from anterior to posterior direction. I then positioned into place a 6 hole one third semitubular locking plate. Once I was satisfied with the reduction I placed a nonlocking screw proximally. I then placed a locking screw distally. I then angled a cancellus screw away from the fracture distally. I then placed an additional 2 locking screws proximally. I then extended the medial laceration longitudinally over the medial malleolus. I sharply incised through the skin and the used Bovie electrocautery to achieve hemostasis. I dissected down to the medial malleolus fracture and removed interposing soft tissue. There were 2 separate fracture fragments. I then reduced the fractures with a pointed reduction clamp. Then under fluoroscopic guidance I placed a guidewire for the 4.0 cancellus cannulated screw into each of the separate medial malleolus fragments. Once I was satisfied with the position of the guidewire I measured and then placed 2 screws into position. I then checked the stability of the syndesmosis. The syndesmosis was found to be stable. I confirmed reduction on AP, lateral and mortise views. The wound was thoroughly irrigated. Deep tissue was closed with interrupted 2-0 Vicryl suture. The subcutaneous tissue was closed with interrupted 3-0 Vicryl suture. The skin was closed with 3-0 nylon. The laceration was closed with interrupted 2-0 nylon suture. A sterile dressing was applied and an AO was splint placed. All needle and sponge counts were correct at the end of the procedure. The patient was transferred to the PACU in stable condition without apparent complication. The PA-C was necessary for assistance with procedure for assistance in positioning, prepping, draping, retraction and closure. I attest to the content of the Intraoperative Record and any orders documented therein. Any exceptions are noted below.
[2019-12-22] MEDS ORDERED: fentaNYL citrate 100 MCG/2 ML VIAL IV PRN (19:51)
[2019-12-22] MEDS ORDERED: ONDANSETRON INJ 2 MG/ML 2 ML VIAL IV PRN ×2 (19:51→21:00)
[2019-12-22] MEDS ORDERED: HYDROmorphone INJ 1 MG/ML SYRINGE IV PRN (19:51)
[2019-12-22] MEDS ORDERED: ePHEDrine sulfate 50 MG/ML AMP IV PRN (19:51)
[2019-12-22] MEDS ORDERED: ATROPINE SULFATE 0.1 MG/ML 10ML SYR IV PRN (19:51)
--- NOTE | 2019-12-22 20:17 | Anesthesiology Progress Note ---
Date of Service December 22, 2019 Anesthesia Post Procedure Vital Signs Vital Signs: Temp Pulse Pulse Pulse Resp BP BP 12/22/19 19:50 130 H 19 118/76 12/22/19 19:40 96 H 12 99/62 L 12/22/19 19:31 36.8 C 91 H 18 96/58 L 12/22/19 16:51 36.5 C 86 16 102/73 12/22/19 16:00 84 16 109/62 12/22/19 15:30 86 12/22/19 15:01 95 H 12/22/19 15:00 90 99/71 L 12/22/19 14:45 100 H 20 101/79 12/22/19 14:31 89 12/22/19 14:30 96 H 101/79 12/22/19 14:26 98 H 104/73 12/22/19 14:23 83 111/72 12/22/19 14:20 94 H 113/80 12/22/19 14:17 88 89 18 106/77 106/77 12/22/19 14:15 87 102/68 12/22/19 14:13 90 106/73 12/22/19 14:12 95 H 21 106/73 12/22/19 14:10 100 H 100 H 20 110/73 110/73 12/22/19 14:07 98 H 99/68 L 12/22/19 14:05 97 H 18 99/68 L 12/22/19 14:01 102 H 12/22/19 14:00 101 H 99 H 16 141/88 H 141/88 H 12/22/19 13:55 99 H 16 12/22/19 13:43 92 H 14 120/80 12/22/19 13:31 105 H 23 122/84 12/22/19 13:30 99 H 19 12/22/19 13:18 36.8 C 105 H 20 139/108 H 12/22/19 13:17 113 H 17 12/22/19 13:10 100 H 18 139/108 H Pulse Ox 12/22/19 19:50 99 12/22/19 19:40 100 12/22/19 19:31 98 12/22/19 16:51 98 12/22/19 16:00 95 12/22/19 15:30 12/22/19 15:01 100 12/22/19 15:00 100 07/02/20 14:45 100 12/22/19 14:31 100 12/22/19 14:30 100 12/22/19 14:26 100 12/22/19 14:23 12/22/19 14:20 84 L 12/22/19 14:17 100 12/22/19 14:15 12/22/19 14:13 100 12/22/19 14:12 100 12/22/19 14:10 100 12/22/19 14:07 100 12/22/19 14:05 100 12/22/19 14:01 100 12/22/19 14:00 100 12/22/19 13:55 100 12/22/19 13:43 99 12/22/19 13:31 12/22/19 13:30 12/22/19 13:18 100 12/22/19 13:17 100 12/22/19 13:10 100 Transfer of Care Handoff Completed per policy Notes Mental Status: alert / awake / arousable and participated in evaluation Patient Amnestic to Procedure: Yes Nausea / Vomiting: adequately controlled Pain: adequately controlled Airway Patency, RR, SpO2: stable & adequate BP & HR: stable & adequate Hydration State: stable & adequate Anesthetic Complications: no major complications apparent and Pt Satisfied with anesthetic care
[2019-12-22] MEDS ORDERED: METOPROLOL TARTRATE 1 MG/ML VIAL IV STA (20:18)
[2019-12-22] MEDS ORDERED: METOPROLOL TARTRATE 1 MG/ML VIAL IV ONE (20:19)
--- NOTE | 2019-12-22 20:42 | Anesthesiology Progress Note ---
Date of Service December 22, 2019 Anesthesia Post Procedure Vital Signs Vital Signs: Temp Pulse Pulse Pulse Resp BP BP 12/22/19 20:40 78 16 112/74 12/22/19 20:35 36.5 C 94 H 14 129/79 12/22/19 20:30 70 16 115/65 12/22/19 20:25 102 H 14 117/72 12/22/19 20:21 104 H 120/82 12/22/19 20:20 101 H 16 120/82 12/22/19 20:15 100 H 16 120/80 12/22/19 19:50 130 H 19 118/76 12/22/19 19:40 96 H 12 99/62 L 12/22/19 19:31 36.8 C 91 H 18 96/58 L 12/22/19 16:51 36.5 C 86 16 102/73 12/22/19 16:00 84 16 109/62 12/22/19 15:30 86 12/22/19 15:01 95 H 12/22/19 15:00 90 99/71 L 12/22/19 14:45 100 H 20 101/79 12/22/19 14:31 89 12/22/19 14:30 96 H 101/79 12/22/19 14:26 98 H 104/73 12/22/19 14:23 83 111/72 12/22/19 14:20 94 H 113/80 12/22/19 14:17 88 89 18 106/77 106/77 12/22/19 14:15 87 102/68 12/22/19 14:13 90 106/73 12/22/19 14:12 95 H 21 106/73 12/22/19 14:10 100 H 100 H 20 110/73 110/73 12/22/19 14:07 98 H 99/68 L 12/22/19 14:05 97 H 18 99/68 L 12/22/19 14:01 102 H 12/22/19 14:00 101 H 99 H 16 141/88 H 141/88 H 12/22/19 13:55 99 H 16 12/22/19 13:43 92 H 14 120/80 12/22/19 13:31 105 H 23 122/84 12/22/19 13:30 99 H 19 12/22/19 13:18 36.8 C 105 H 20 139/108 H 07/02/20 13:17 113 H 17 12/22/19 13:10 100 H 18 139/108 H Pulse Ox 12/22/19 20:40 99 12/22/19 20:35 99 12/22/19 20:30 99 12/22/19 20:25 98 12/22/19 20:21 12/22/19 20:20 100 12/22/19 20:15 96 12/22/19 19:50 99 12/22/19 19:40 100 12/22/19 19:31 98 12/22/19 16:51 98 12/22/19 16:00 95 12/22/19 15:30 12/22/19 15:01 100 12/22/19 15:00 100 12/22/19 14:45 100 12/22/19 14:31 100 12/22/19 14:30 100 12/22/19 14:26 100 12/22/19 14:23 100 12/22/19 14:20 84 L 12/22/19 14:17 100 12/22/19 14:15 100 12/22/19 14:13 100 12/22/19 14:12 100 12/22/19 14:10 100 12/22/19 14:07 100 12/22/19 14:05 100 12/22/19 14:01 100 12/22/19 14:00 100 12/22/19 13:55 100 12/22/19 13:43 99 12/22/19 13:31 100 12/22/19 13:30 12/22/19 13:18 100 12/22/19 13:17 100 12/22/19 13:10 100 Transfer of Care Handoff Completed per policy Notes Mental Status: alert / awake / arousable and participated in evaluation Patient Amnestic to Procedure: Yes Nausea / Vomiting: adequately controlled Pain: adequately controlled Airway Patency, RR, SpO2: stable & adequate BP & HR: stable & adequate Hydration State: stable & adequate Anesthetic Complications: no major complications apparent and Pt Satisfied with anesthetic care
[2019-12-22] MEDS ORDERED: HYDROmorphone INJ 0.5 MG/0.5 ML SYR IV PRN (21:00)
[2019-12-22] MEDS ORDERED: SODIUM CHLORIDE 0.9% 1000ML 1,000 ML IV SCH (21:00)
[2019-12-22] MEDS ORDERED: MAGNESIUM HYDROXIDE SUSP 30 ML UDC PO PRN (21:00)
[2019-12-22] MEDS ORDERED: SENNA 8.6 MG TAB PO SCH (21:00)
[2019-12-22] MEDS ORDERED: METOCLOPRAMIDE HCL INJ 5 MG/ML 2 ML VIAL IV PRN (21:00)
[2019-12-22] MEDS ORDERED: NALOXONE HCL 0.4 MG/1 ML VIAL/CARP IV PRN (21:00)
[2019-12-22] MEDS ORDERED: bisacodyL 10 MG SUPP PR PRN (21:00)
[2019-12-22] MEDS ORDERED: PANTOprazole 40 MG TAB PO SCH (22:00)
[2019-12-22] MEDS: lamoTRIgine 100 MG TAB PO SCH (22:18)
[2019-12-22] MEDS: METOPROLOL SUCC 50MG EXT REL TAB PO SCH (22:18)
[2019-12-22] MEDS: DOCUSATE SODIUM 100 MG CAP PO SCH (22:19)
[2019-12-22] MEDS: ASPIRIN 81 MG ECTAB PO SCH (22:19)
[2019-12-22] MEDS: ACETAMINOPHEN 500 MG TAB PO SCH (22:21)
[2019-12-22] MEDS: CEFAZOLIN 1000MG 1,000 MG/7.5 ML SYR IV SCH (23:10)
[2019-12-22] MEDS: OXYCODONE HCL IR 5 MG TAB (IMMEDIATE RELEASE) PO PRN (23:10)
[2019-12-23] MEDS: ACETAMINOPHEN 500 MG TAB PO SCH ×2 (05:13→13:39)
[2019-12-23] MEDS: CEFAZOLIN 1000MG 1,000 MG/7.5 ML SYR IV SCH (05:14)
[2019-12-23 06:25] LABS: Hematocrit (blood only) 37.1 % (37-47); Hemoglobin 11.8 g/dL (12.0-16.0); Mean Corpuscular Hemoglobin 34.3 pg (25-34); Mean Corpuscular Hgb Conc 31.8 g/dL (32-36); Mean Corpuscular Volume 107.8 fL (80-100); Mean Platelet Volume 11.9 fL (7.4-10.4); Platelet Count 197 K/uL (130-400); RDW Coefficient of Variation 16.2 % (11.5-14.5); RDW Standard Deviation 63.2 fL (36.4-46.3); Red Blood Count 3.44 M/uL (4.2-5.4); White Blood Count 12.62 K/uL (4.8-10.8)
[2019-12-23 07:12] LABS: BUN Creatinine Ratio 4.6 (10-20); Calcium 7.6 mg/dl (8.5-10.1); Creatinine Clr Calc Pharmacy 64.4 ml/min; Est GFR (Non-African American) 70.7; Potassium 4.1 mmol/L (3.5-5.1)
[2019-12-23] MEDS: METOPROLOL SUCC 50MG EXT REL TAB PO SCH (08:46)
[2019-12-23] MEDS: DOCUSATE SODIUM 100 MG CAP PO SCH (08:46)
[2019-12-23] MEDS: lamoTRIgine 100 MG TAB PO SCH (08:46)
[2019-12-23] MEDS: ASPIRIN 81 MG ECTAB PO SCH (08:46)
[2019-12-23] MEDS: OXYCODONE HCL IR 5 MG TAB (IMMEDIATE RELEASE) PO PRN (08:48)
[2019-12-23] MEDS ORDERED: FLUTICASONE/VILANTEROL 100/25MCG 14 PUFFS/INHALER INH SCH (09:00)
[2019-12-23] MEDS ORDERED: CYANOCOBALAMIN 500 MCG TABLET (VITAMIN B-12) PO SCH (09:00)
[2019-12-23] MEDS ORDERED: MULTIVITAMIN TAB PO SCH (09:00)
[2019-12-23] MEDS ORDERED: PRENATAL VITAMIN 1 TAB PO SCH (09:00)
--- NOTE | 2019-12-23 14:45 | Orthopedic Progress Note ---
Date of Service December 23, 2019 Assessment & Plan (1) Trimalleolar fracture of ankle, open: POD #1 s/p Left Open Ankle Fracture Incision and Drainage, Left Open Ankle Fracture Open Reduction Internal Fixation(Left) NWB LLE at all times. DVT prophylaxis--ASA 81 mg BID PT/OT today prior to discharge. Pain control D/C planning--home today. Admission and Anticipated Discharge Date Admission Date: December 22, 2019 Subjective Doing well. Minimal pain in the ankle and controlled with pain meds. Has been NWB on the LLE. No CP, SOB, LH. No other complaints. Physical Exam Constitutional: WD/WN, vitals as above Musculoskeletal: Ankle: + surgical incision (left ankle: Short leg splint in place. C/D/I. Toes are mobile.); no deformity Neurologic: normal touch/pain/proprioception Psychiatric: A+Ox3, euthymic affect Speech: normal rate/rhythm/volume of speech Results & Data ([facility]) Vital Signs (Past 12 Hours) Vital Signs Temp Pulse Resp BP Pulse Ox 12/23/19 07:40 36.3 C L 63 18 96/61 L 98 (1) Trimalleolar fracture of ankle, open Encounter type: initial encounter Laterality: left Open fracture type: open type I or II Qualified Code(s): S82.852B - Displaced trimalleolar fracture of left lower leg, initial encounter for open fracture type I or II
--- NOTE | 2019-12-23 15:56 | Electrocardiogram Report ---
Test Reason : Blood Pressure : / mmHG Vent. Rate : 076 BPM Atrial Rate : 076 BPM P-R Int : 164 ms QRS Dur : 076 ms QT Int : 392 ms P-R-T Axes : 070 046 -13 degrees QTc Int : 441 ms Poor data quality, interpretation may be adversely affected Normal sinus rhythm Abnormal ECG When compared with ECG of 09-MAR-2014 06:31, Inverted T waves have replaced nonspecific T wave abnormality in Inferior leads Inverted T waves have replaced nonspecific T wave abnormality in Anterior leads Confirmed by Clark Hernández ([id number]) on 12/23/2019 3:56:48 PM Referred By: REFERRED SELF Confirmed By:Clark Hernández
--- NOTE | 2019-12-25 14:22 | Discharge Summary ---
Date of Service December 25, 2019 Admission HPI Per Admitting Provider The patient is a 49-year-old female is coming down a set of stairs. She missed a step and came down wrong on the foot felt a pop and crack and had immediate pain and inability to bear weight. She was seen and evaluated the emergency room. X-rays were obtained and demonstrated displaced dislocated trimalleolar ankle fracture with laceration over the medial side consistent with an open fracture. She was reduced per the emergency room staff. She states she is much more comfortable now that she has been reduced. She denies any other symptoms but any headache chest cough shortness of breath chest pain loss of taste or smell. She has a past medical history of seizures controlled with left ictal. She states her last seizure was 2015. She also has a history of SVT which she takes metoprolol for. She had been on verapamil but this is been discontinued. Admission Exam Per Admitting Provider Constitutional: WD/WN, vitals as above Neck: normal visual inspection Respiratory: normal respiratory effort Cardiovascular: Extremities: no edema Musculoskeletal: Left lower extremity: Light touch sensation at the toes and intact cap refill is less than 2 seconds. She is able to move the toes without difficulty. There is a dressed laceration over the medial side of the ankle Principal Diagnosis Left open ankle trimalleolar fracture/dislocation Discharge Exam Constitutional: WD/WN, vitals as above Musculoskeletal: Ankle: + surgical incision (left ankle: Short leg splint in place. C/D/I. Toes are mobile.); no deformity Neurologic: normal touch/pain/proprioception Psychiatric: A+Ox3, euthymic affect Speech: normal rate/rhythm/volume of speech Discharge Data Allergies Allergy/AdvReac Type Severity Reaction Status Date / Time No Known Allergies Allergy Verified 12/22/19 15:15 Consultations 12/22/19 15:16 ED Decision to Admit Stat 12/22/19 21:00 Consult Case Management - Discharge Planning Routine Procedures Performed Operation Date: 12/22/19 17:05 Actual Procedures p Left Open Ankle Fracture Open Reduction Internal Fixation(Left) - Jordy Martinez MD s Left Open Ankle Fracture Incision and Drainage,(Left) - Jordy Martinez MD Ordered Studies 12/22/19 FL ankle LT 2V Routine FL fluoroscopy <1hr Routine Hospital Course (1) Trimalleolar fracture of ankle, open: Patient presented to the emergency department after sustaining a fall down stairs and suffering an open trimalleolar fracture. She was subsequently taken to the operating room for Left ankle I&D and ORIF of said fracture on 12/22/19. She tolerated procedure well. She received IV antibiotics preoperative and intraoperatively, as well as IV antibiotics post operatively. The Patient had an uneventful hospital course. Post-operatively, her activity was progressed and well tolerated. They participated in PT Labs remained stable- lowest hemoglobin recorded:11.8. Pain controlled on oral medications. Please refer to daily progress notes and PT notes for complete details. After exam on 12/23/19, patient was felt to be stable for discharge home. She was discharged home with PO antibiotics. Patient will f/u in the office in about 2 weeks for further evaluation including x-rays and incision check, sooner if having any issues or concerns. Lab Results 12/22/19 12/22/19 12/22/19 Range/Units 13:14 13:14 13:14 WBC 12.25 H (4.8-10.8) K/uL RBC 3.76 L (4.2-5.4) M/uL Hgb 13.3 (12.0-16.0) g/dL Hct 39.4 (37-47) % MCV 104.8 H (80-100) fL MCH 35.4 H (25-34) pg MCHC 33.8 (32-36) g/dL RDW Std Deviation 61.6 H (36.4-46.3) fL RDW Coeff of Gabriel 16.1 H (11.5-14.5) % Plt Count 231 (130-400) K/uL MPV 11.9 H (7.4-10.4) fL Immature Gran % (Auto) 0.2 % Neut % (Auto) 50.5 % Lymph % (Auto) 36.3 % [place] % (Auto) 11.8 % Eos % (Auto) 1.0 % Baso % (Auto) 0.2 % Neut # (Auto) 6.17 (1.4-6.5) K/uL Lymph # (Auto) 4.45 H (1.2-3.4) K/uL [place] # (Auto) 1.45 H (0.11-0.59) K/uL Eos # (Auto) 0.12 (0-0.5) K/uL Baso # (Auto) 0.03 (0-0.2) K/uL Immature Gran # (Auto) 0.03 H (0.00-0.02) K/uL PT 10.4 (9.0-12.0) Seconds INR 1.0 (0.9-1.1) APTT (21.0-31.0) Seconds PTT Ratio Sodium 135 L (136-145) mmol/L Potassium 3.4 L (3.5-5.1) mmol/L Chloride 105 (98-107) mmol/L Carbon Dioxide 20 L (21-32) mmol/L Anion Gap 10.0 (3-11) BUN 3 L (7-18) mg/dl Creatinine 0.84 (0.6-1.2) mg/dl Est Cr Clr Drug Dosing 72.1 ml/min Est GFR ( Amer) 93.9 Est GFR (Non-Af Amer) 81.0 BUN/Creatinine Ratio 3.9 L (10-20) Glucose 96 (70-99) mg/dl Calcium 8.4 L (8.5-10.1) mg/dl HCG, Qual (Negative) COVID-19 PCR (Negative) SARS-CoV-2 RNA (RT-PCR) Blood Type Antibody Screen 12/22/19 12/22/19 12/22/19 Range/Units 13:14 13:14 14:22 WBC (4.8-10.8) K/uL RBC (4.2-5.4) M/uL Hgb (12.0-16.0) g/dL Hct (37-47) % MCV (80-100) fL MCH (25-34) pg MCHC (32-36) g/dL RDW Std Deviation (36.4-46.3) fL RDW Coeff of Gabriel (11.5-14.5) % Plt Count (130-400) K/uL MPV (7.4-10.4) fL Immature Gran % (Auto) % Neut % (Auto) % Lymph % (Auto) % [place] % (Auto) % Eos % (Auto) % Baso % (Auto) % Neut # (Auto) (1.4-6.5) K/uL Lymph # (Auto) (1.2-3.4) K/uL [place] # (Auto) (0.11-0.59) K/uL Eos # (Auto) (0-0.5) K/uL Baso # (Auto) (0-0.2) K/uL Immature Gran # (Auto) (0.00-0.02) K/uL PT (9.0-12.0) Seconds INR (0.9-1.1) APTT 24.0 (21.0-31.0) Seconds PTT Ratio 0.9 Sodium (136-145) mmol/L Potassium (3.5-5.1) mmol/L Chloride (98-107) mmol/L Carbon Dioxide (21-32) mmol/L Anion Gap (3-11) BUN (7-18) mg/dl Creatinine (0.6-1.2) mg/dl Est Cr Clr Drug Dosing ml/min Est GFR ( Amer) Est GFR (Non-Af Amer) BUN/Creatinine Ratio (10-20) Glucose (70-99) mg/dl Calcium (8.5-10.1) mg/dl HCG, Qual Negative (Negative) COVID-19 PCR (Negative) SARS-CoV-2 RNA (RT-PCR) Blood Type A Positive Antibody Screen NEGATIVE 12/22/19 12/22/19 12/23/19 Range/Units 15:15 15:15 05:41 WBC 12.62 H (4.8-10.8) K/uL RBC 3.44 L (4.2-5.4) M/uL Hgb 11.8 L (12.0-16.0) g/dL Hct 37.1 (37-47) % MCV 107.8 H (80-100) fL MCH 34.3 H (25-34) pg MCHC 31.8 L (32-36) g/dL RDW Std Deviation 63.2 H (36.4-46.3) fL RDW Coeff of Gabriel 16.2 H (11.5-14.5) % Plt Count 197 (130-400) K/uL MPV 11.9 H (7.4-10.4) fL Immature Gran % (Auto) % Neut % (Auto) % Lymph % (Auto) % [place] % (Auto) % Eos % (Auto) % Baso % (Auto) % Neut # (Auto) (1.4-6.5) K/uL Lymph # (Auto) (1.2-3.4) K/uL [place] # (Auto) (0.11-0.59) K/uL Eos # (Auto) (0-0.5) K/uL Baso # (Auto) (0-0.2) K/uL Immature Gran # (Auto) (0.00-0.02) K/uL PT (9.0-12.0) Seconds INR (0.9-1.1) APTT (21.0-31.0) Seconds PTT Ratio Sodium (136-145) mmol/L Potassium (3.5-5.1) mmol/L Chloride (98-107) mmol/L Carbon Dioxide (21-32) mmol/L Anion Gap (3-11) BUN (7-18) mg/dl Creatinine (0.6-1.2) mg/dl Est Cr Clr Drug Dosing ml/min Est GFR ( Amer) Est GFR (Non-Af Amer) BUN/Creatinine Ratio (10-20) Glucose (70-99) mg/dl Calcium (8.5-10.1) mg/dl HCG, Qual (Negative) COVID-19 PCR NEGATIVE (Negative) SARS-CoV-2 RNA (RT-PCR) Cancelled Blood Type Antibody Screen 12/23/19 Range/Units 05:41 WBC (4.8-10.8) K/uL RBC (4.2-5.4) M/uL Hgb (12.0-16.0) g/dL Hct (37-47) % MCV (80-100) fL MCH (25-34) pg MCHC (32-36) g/dL RDW Std Deviation (36.4-46.3) fL RDW Coeff of Gabriel (11.5-14.5) % Plt Count (130-400) K/uL MPV (7.4-10.4) fL Immature Gran % (Auto) % Neut % (Auto) % Lymph % (Auto) % [place] % (Auto) % Eos % (Auto) % Baso % (Auto) % Neut # (Auto) (1.4-6.5) K/uL Lymph # (Auto) (1.2-3.4) K/uL [place] # (Auto) (0.11-0.59) K/uL Eos # (Auto) (0-0.5) K/uL Baso # (Auto) (0-0.2) K/uL Immature Gran # (Auto) (0.00-0.02) K/uL PT (9.0-12.0) Seconds INR (0.9-1.1) APTT (21.0-31.0) Seconds PTT Ratio Sodium 134 L (136-145) mmol/L Potassium 4.1 D (3.5-5.1) mmol/L Chloride 105 (98-107) mmol/L Carbon Dioxide 23 (21-32) mmol/L Anion Gap 6.0 (3-11) BUN 4 L (7-18) mg/dl Creatinine 0.94 (0.6-1.2) mg/dl Est Cr Clr Drug Dosing 64.4 ml/min Est GFR ( Amer) 82.0 Est GFR (Non-Af Amer) 70.7 BUN/Creatinine Ratio 4.6 L (10-20) Glucose 139 H (70-99) mg/dl Calcium 7.6 L (8.5-10.1) mg/dl HCG, Qual (Negative) COVID-19 PCR (Negative) SARS-CoV-2 RNA (RT-PCR) Blood Type Antibody Screen Total Time Total Time Spent Total Time Spent (In Minutes): 20 Discharge Plan Discharge Items Patient Disposition: Home - Self-Care Reason For Visit: POST SURGICAL CARE Discharge Diagnosis: left ankle open trimalleolar ankle fracture Activity: Per Instructions section Weightbearing: Left non-weightbearing Non-emergency contact: Surgeon Call non-emergency contact if: your pain is not controlled, your pain is worsening and your temperature is above 101 Follow-up/Referrals: Segun Osborne MD [Primary Care Provider] - Diet: Regular Addtl Attending Provider Instructions: ACTIVITY RECOMMENDATIONS: Limitations: No weight bearing to affected limb at all times. SPECIAL CARE INSTRUCTIONS: * Take Aspirin 81 mg every 12 hours for the next 30 days for blood clot prophylaxis. * Some drainage onto the dressing is normal and is no cause for alarm. * Some swelling is natural especially after walking. * When resting, keep your foot elevated above the level of your heart. * Call [facility] [place] if you notice: -Increased drainage -Fever over 101 degrees F -Severe constant pain BANDAGE: * Leave bandage/cast in place unless otherwise directed. * Keep bandage/cast dry at all times. FOLLOW UP VISIT WITH DR. ZAYAS If appointment is not already scheduled: Please call [facility] [place] after you get home today to schedule a follow-up appointment for [address] Zayas at . Pending Studies at Discharge: No Stand-Alone Forms: My [facility], Smoking Cessation Medications and DC Order Prescriptions: New aspirin 81 mg Tablet,Delayed Release (Dr/Ec) 81 mg PO BID Qty: 60 RF: 0 oxycodone-acetaminophen [Percocet] 5-325 mg tablet 1 tab PO Q4H PRN (Reason: pain) Qty: 20 RF: 0 cefadroxil 500 mg capsule 500 mg PO BID Qty: 30 RF: 0 Continued metoprolol succinate [Toprol XL] 100 mg tablet extended release 24 hr 100 mg PO BID RF: 0 cyanocobalamin (vitamin B-12) [Vitamin B-12] 1,000 mcg Tablet 1,000 mcg PO DAILY RF: 0 lamotrigine [Lamictal] 100 mg tablet 100 mg PO BID RF: 0 PNV cmb#95-ferrous fumarate-FA [] 28 mg iron- 800 mcg Tablet 1 tab PO DAILY RF: 0 Breo Ellipta 100-25 mcg/dose blister with device 1 inh inhalation DAILY RF: 0 omeprazole 40 mg Capsule,Delayed Release(Dr/Ec) 40 mg PO HS RF: 0 Discharge Orders: Discharge Order (Routine); Ordered 12/23/19 Ordered By: Jb Elliott Admission Data Admit Date/Time: 12/22/19 19:34 Attending Provider: Jordy Martinez Admit Provider: Jordy Martinez Primary Care Provider: Segun Osborne Other Providers: Jordy Martinez Other Interventions: Discharge Summary Assessment (RN) Last Done: 12/23/19 16:28 DC Date/Time DO NOT enter until pt leaves facility: 12/23/19 16:45
== END 2019-12-23 16:45 | disposition home or self-care (01) | DRG 493 ==
LOC: ED 13:07 → ASU 16:41 → 3N 19:34 → INTOOBSV 19:34

== ENCOUNTER 2020-04-17 19:39 | Inpatient (IN) ==
[2020-04-17 20:53] LABS: Basophils # (auto) 0.02 K/uL (0-0.2); Basophils % (auto) 0.2 %; Eosinophils % (auto) 0.9 %; Hemoglobin 16.8 g/dL (12.0-16.0); Immature Granulocytes # (auto) 0.04 K/uL (0.00-0.02); Immature Granulocytes % (auto) 0.4 %; Lymphocytes # (auto) 2.15 K/uL (1.2-3.4); Mean Corpuscular Hemoglobin 34.1 pg (25-34); Mean Corpuscular Hgb Conc 35.7 g/dL (32-36); Mean Corpuscular Volume 95.3 fL (80-100); Mean Platelet Volume 12.2 fL (7.4-10.4); Monocytes # (auto) 1.02 K/uL (0.11-0.59); Neutrophils % (auto) 70.5 %; Platelet Count 227 K/uL (130-400); RDW Coefficient of Variation 13.2 % (11.5-14.5); RDW Standard Deviation 45.6 fL (36.4-46.3); Red Blood Count 4.93 M/uL (4.2-5.4); White Blood Count 11.33 K/uL (4.8-10.8)
[2020-04-17 21:15] LABS: BUN Creatinine Ratio 10.1 (10-20); Blood Urea Nitrogen 12 mg/dl (7-18); Calcium 9.2 mg/dl (8.5-10.1); Carbon Dioxide 31 mmol/L (21-32); Chloride 79 mmol/L (98-107); Creatinine Clr Calc Pharmacy 44.1 ml/min; Est GFR (African American) 61.2; Est GFR (Non-African American) 52.8; Glucose 108 mg/dl (70-99); Magnesium 2.3 mg/dl (1.8-2.4); Potassium 2.6 mmol/L (3.5-5.1); Sodium 121 mmol/L (136-145)
[2020-04-17] MEDS ORDERED: POTASSIUM CHLORIDE 10 MEQ TABCR PO STA (21:18)
[2020-04-17 21:20] LABS: Troponin I < 0.015 ng/ml (0-0.045)
[2020-04-17] MEDS: POTASSIUM CHLORIDE / WTR 10 MEQ/100 ML PLCT IV SCH ×2 (21:38→23:57)
[2020-04-17] MEDS ORDERED: ONDANSETRON INJ 2 MG/ML 2 ML VIAL IV STA (21:44)
--- NOTE | 2020-04-17 23:12 | History & Physical Report ---
Date of Service April 17, 2020 Assessment & Plan (1) Hyponatremia: (2) Hypokalemia: 50-year-old female with history of persistent nausea and vomiting, esophagitis, gastric ulcer, duodenitis, PACs and PVCs, asthma, presenting with weakness, lightheadedness. Hyponatremia, hypokalemia secondary to poor oral intake Start, saline solution with potassium at 100 cc/h K riders x4 bags Check BMP every 6 hours starting at 2 AM Nephrology consulted Intractable nausea and vomiting, history of esophagitis, gastric ulcer, duodenitis N.p.o. for now except meds Protonix IV every 12 hours Phenergan as needed GI consult Abnormal EKG Showing T wave inversions in the inferior and anterolateral leads Also with prolonged QT of 488 Likely secondary to hyponatremia, hypokalemia No cardiac symptoms Initial troponin negative, check troponins x2 more sets Echocardiogram Repeat EKG in the morning History of PACs, PVCs Correct electrolytes Continue metoprolol 50 mg twice a day History of asthma Not using Breo Not in exacerbation CODE STATUS Full code DVT prophylaxis SCDs for now Disposition Lives with family at home Admission and Anticipated Discharge Date Admission Date: April 17, 2020 History of Present Illness 50-year-old female with history of persistent nausea and vomiting, esophagitis, gastric ulcer, duodenitis, PACs and PVCs, asthma, presenting with weakness, lig htheadedness. Patient follows with [facility], for intractable nausea and vomiting. Recent EGD revealed esophagitis, gastric ulcer, duodenitis. Patient is currently taking omeprazole 40 mg and has not taken sucralfate, and cholestyramine as of yet. Patient reports that she has persistent nausea and vomiting for the past few weeks. She did not tolerate any food or beverages due to severe nausea and vomiting. She has been only drinking High C orange drink and ice water since that time. Patient reports weight loss of around 15 pounds for the past month. Patient has been having progressive weakness and lightheadedness prompting consult to the ER. At the ER, patient was found to have sodium of 121 and potassium of 2.6. On exam, patient was seen sitting up in bed, comfortable, not in distress, awake alert oriented x3. She reports feeling improved somewhat after IV fluids have been started in the ER. She denies having active headache, dizziness, chest pain, shortness of breath, nausea vomiting, abdominal pain, problems urination/bowel movement. No other symptom Primary Care Provider: Segun Osborne MD Allergies Allergy/AdvReac Type Severity Reaction Status Date / Time verapamil AdvReac Unknown Leg Verified 04/17/20 22:05 numbness Home Medications Home Medications Medication Instructions Recorded Confirmed Type PNV cmb#95-ferrous fumarate-FA 1 tab PO QAM 02/25/19 04/17/20 History [] cyanocobalamin (vitamin B-12) 1,000 mcg PO QAM 02/25/19 04/17/20 History [Vitamin B-12] lamotrigine [Lamictal] 100 mg PO BID 02/25/19 04/17/20 History omeprazole 40 mg PO BID 12/22/19 04/17/20 History lactobacillus combination no.4 0 mmu cells PO DAILY 04/17/20 04/17/20 History [Probiotic] metoprolol succinate See Rx Instructions .ROUTE .COMPLEX 04/17/20 04/17/20 History Past Med/Surg History Medical History Bronchitis Epilepsy SVT (supraventricular tachycardia) Tobacco abuse (03/08/14) Surgical History History of cholecystectomy Hx of appendectomy Hx of cholecystectomy S/P ACL repair Social History Smoking Status: Former smoker Tobacco Type: Cigarettes Second Hand Exposure: No; Hx Alcohol Use: No Hx Substance Use: No Preferred Language: Dutch Communication Ability: Effective [employer] Observer Required: No Beliefs That Will Affect Care: None marital status: / Current Living Situation: Family Current Living Situation Comment: LIVES WITH SON Feels Safe at Home: Yes Assistive Devices: Walker Review of Systems Review of Systems: All systems reviewed & are unremarkable except as noted in Subjective Physical Exam Physical Exam: General- oriented x 3, not in distress, speaks in sentences with no effort or accessory muscle use Head- atraumatic Eyes- PERRL, EOMI, anicteric ENT- oropharynx clear Dry oral mucosa Neck- supple, no JVD, no adenopathy, no thyromegaly; carotids +2/2, no bruits appreciated Lungs- clear to auscultation bilaterally, no rales/wheezes Heart- normal rate, regular rhythm; no murmur, no gallop, no rub appreciated Abdomen- normal bowel sounds, nondistended, soft, nontender, no masses or hepatosplenomegaly Extremities- no pretibial edema, no calf tenderness; peripheral pulses intact Neuro- alert, oriented x 3; CN 2-12 grossly intact; motor 5/5 bilaterally;sensation 100% on all extremities; no other gross focal neurologic d eficits Skin- warm & dry Results & Data Results & Data ([facility]) Vital Signs (Past 12 Hours) Vital Signs Temp Pulse Resp BP Pulse Ox 04/17/20 22:00 88 19 93/65 L 04/17/20 21:30 85 13 102/74 04/17/20 21:00 79 18 102/78 04/17/20 20:53 83 12 04/17/20 20:44 94 H 12 04/17/20 19:43 36.4 C L 84 18 100/74 99 Laboratory Results Laboratory Results - last 24 hr 04/17/20 04/17/20 20:30 20:30 WBC 11.33 H RBC 4.93 Hgb 16.8 H Hct 47.0 MCV 95.3 MCH 34.1 H MCHC 35.7 RDW Std Deviation 45.6 RDW Coeff of Gabriel 13.2 Plt Count 227 MPV 12.2 H Immature Gran % (Auto) 0.4 Neut % (Auto) 70.5 Lymph % (Auto) 19.0 [place] % (Auto) 9.0 Eos % (Auto) 0.9 Baso % (Auto) 0.2 Neut # (Auto) 8.00 H Lymph # (Auto) 2.15 [place] # (Auto) 1.02 H Eos # (Auto) 0.10 Baso # (Auto) 0.02 Immature Gran # (Auto) 0.04 H Sodium 121 L Potassium 2.6 L Chloride 79 L Carbon Dioxide 31 Anion Gap 11.0 BUN 12 Creatinine 1.19 Est Cr Clr Drug Dosing 44.1 Est GFR ( Amer) 61.2 Est GFR (Non-Af Amer) 52.8 BUN/Creatinine Ratio 10.1 Glucose 108 H Calcium 9.2 Magnesium 2.3 Troponin I < 0.015 Code Status & VTE Plan VTE Prophylaxis Plan VTE Prophylaxis will be ordered: Yes
[2020-04-17] MEDS ORDERED: PROMETHAZINE HCL 6.25 MG in SODIUM CHLORIDE 0.9% 50 ML IV PRN (23:30)
[2020-04-17] MEDS ORDERED: POTASSIUM CHLORIDE / WTR 10 MEQ/100 ML PLCT IV STA (23:30)
[2020-04-17] MEDS ORDERED: NSS + 20MEQ KCL 20 MEQ/1,000 ML BAG IV SCH (23:30)
--- NOTE | 2020-04-18 00:07 | Emergency Department Note ---
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 Patient states she had blood work done at [facility] today and was called by her yarn worker to come to the e mergency department because her magnesium potassium and sodium were low. Patient states she is lost 25 pounds over the last month because she is been constant vomiting and been having palpitations. She states she is a patient of Dr. Bustos's. Home Medications Home Medications Medication Instructions Recorded Confirmed Type PNV cmb#95-ferrous fumarate-FA 1 tab PO QAM 02/25/19 04/17/20 History [] cyanocobalamin (vitamin B-12) 1,000 mcg PO QAM 02/25/19 04/17/20 History [Vitamin B-12] lamotrigine [Lamictal] 100 mg PO BID 02/25/19 04/17/20 History omeprazole 40 mg PO BID 12/22/19 04/17/20 History lactobacillus combination no.4 0 mmu cells PO DAILY 04/17/20 04/17/20 History [Probiotic] metoprolol succinate See Rx Instructions .ROUTE .COMPLEX 04/17/20 04/17/20 History Allergies Allergy/AdvReac Type Severity Reaction Status Date / Time verapamil AdvReac Unknown Leg Verified 04/17/20 22:05 numbness Past Med/Surg History Medical History Bronchitis Epilepsy SVT (supraventricular tachycardia) Tobacco abuse (03/08/14) Surgical History History of cholecystectomy Hx of appendectomy Hx of cholecystectomy S/P ACL repair Social History Smoking Status: Former smoker Tobacco Type: Cigarettes Second Hand Exposure: No; Hx Alcohol Use: No Hx Substance Use: No Preferred Language: Malawian Communication Ability: Effective Assembler Required: No Beliefs That Will Affect Care: None marital status: / Current Living Situation: Family Current Living Situation Comment: LIVES WITH SON Feels Safe at Home: Yes Safety Concerns: Feels Safe At This Time Assistive Devices: None Review of Systems A total of 10 systems reviewed and were otherwise negative Physical Exam Vital Signs Vital Signs - 24 hr 04/17/20 19:43 04/17/20 20:44 04/17/20 20:53 Temperature 36.4 C L Temperature Source Oral Pulse Rate 84 94 H 83 Respiratory Rate 18 12 12 Respiratory Effort / Characteristics Non-Labored Spontaneous Respiratory Depth Normal Blood Pressure 100/74 Blood Pressure Mean 82 Pulse Oximetry 99 Oxygen Delivery Method Room Air Sepsis New/Unexplained Change in Mental Status N/A Sepsis Action Taken by Nursing No Action Required 04/17/20 21:00 04/17/20 21:30 Temperature Temperature Source Pulse Rate 79 85 Respiratory Rate 18 13 Respiratory Effort / Characteristics Respiratory Depth Blood Pressure 102/78 102/74 Blood Pressure Mean 92 80 Pulse Oximetry Oxygen Delivery Method Sepsis New/Unexplained Change in Mental Status Sepsis Action Taken by Nursing Physical Exam GENERAL: She is oriented to person, place, and time. She appears well-developed and well-nourished. She does not appear distressed. HENT: Exam performed. -Head: Normocephalic and atraumatic. -Right Ear: External ear normal. No mastoid tenderness. -Left Ear: External ear normal. No mastoid tenderness. -Mouth/Throat: The oropharynx is clear and moist. No trismus in the jaw. No dental abscesses or uvula swelling. No oropharyngeal exudate or tonsillar abscesses. EYES: Conjunctivae and EOM are normal. Pupils are equal, round, and reactive to light. Right eye exhibits no discharge. Left eye exhibits no discharge. No scleral icterus. NECK: Normal range of motion. Neck supple. No JVD present. No spinous process tenderness present. No carotid bruit present. No rigidity. No tracheal deviation and normal range of motion present. No Brudzinski's sign and no Kernig's sign noted. CV: Normal rate, regular rhythm, normal heart sounds and intact distal pulses. There is no peripheral edema. Palpable radial pulses bue. PULM/CHEST: Effort normal and breath sounds normal. No respiratory distress. No stridor. She has no wheezes. She has no rales. -Chest Wall: She exhibits no tenderness. ABD: The abdomen is soft. Bowel sounds are normal. She has no distension. No mass is present. There is no tenderness. There is no rebound, no guarding, no Yu's sign and no tenderness at McBurney's point. Rovsig negative MUSC/SKEL: Normal range of motion. There is no peripheral edema, tenderness or deformity. LYMPH: No cervical adenopathy. NEURO: She is alert and oriented to person, place, and time. She has normal strength. No cranial nerve deficit or sensory deficit. Coordination and gait normal. GCS eye subscore is 4. GCS verbal subscore is 5. GCS motor subscore is 6. Cerebellar tests wnl. SKIN: Skin is warm and dry. She is not diaphoretic. PSYCH: She has a normal mood and affect. Behavior is normal. Judgment and thought content normal. Course Course 2004: The patient was evaluated in room C10. A complete history and physical exam was performed. 2119: Vital signs stable. Labs show a potassium of 2.6 and sodium 121. Patient was given 1 L normal saline bolus. Potassium will be started to replace in the emergency department. Patient is not having any neurological deficits seizures or altered mental status required hypertonic saline. [facility] was made aware of the patient. Administered Medications Discontinued Medications Potassium Chloride (K Davin / Wtr) 10 meq in 100 mls @ 100 mls/hr IV Q1H TRISTON Stop: 04/17/20 23:29 Last Admin: 04/17/20 23:57 Dose: 100 mls/hr Documented by: [id number] Infusion: 04/17/20 23:55 Dose: 0 mls/hr Documented by: [id number] Admin: 04/17/20 21:38 Dose: 100 mls/hr Documented by: [id number] Ondansetron HCl (Ondansetron Inj 2 Mg/Ml 2 Ml Vial) 4 mg IV NOW STA Stop: 04/17/20 21:45 Last Admin: 04/17/20 21:58 Dose: 4 mg Documented by: [id number] Potassium Chloride (Potassium Chloride 10 Meq Tabcr) 40 meq PO NOW STA Stop: 04/17/20 21:19 Last Admin: 04/17/20 21:39 Dose: Not Given Documented by: [id number] Medical Decision Making Laboratory Data Result diagrams: 04/17/20 20:30 04/17/20 20:30 Lab Results 04/17/20 04/17/20 Range/Units 20:30 20:30 WBC 11.33 H (4.8-10.8) K/uL RBC 4.93 (4.2-5.4) M/uL Hgb 16.8 H (12.0-16.0) g/dL Hct 47.0 (37-47) % MCV 95.3 (80-100) fL MCH 34.1 H (25-34) pg MCHC 35.7 (32-36) g/dL RDW Std Deviation 45.6 (36.4-46.3) fL RDW Coeff of Gabriel 13.2 (11.5-14.5) % Plt Count 227 (130-400) K/uL MPV 12.2 H (7.4-10.4) fL Immature Gran % (Auto) 0.4 % Neut % (Auto) 70.5 % Lymph % (Auto) 19.0 % Robeson % (Auto) 9.0 % Eos % (Auto) 0.9 % Baso % (Auto) 0.2 % Neut # (Auto) 8.00 H (1.4-6.5) K/uL Lymph # (Auto) 2.15 (1.2-3.4) K/uL Robeson # (Auto) 1.02 H (0.11-0.59) K/uL Eos # (Auto) 0.10 (0-0.5) K/uL Baso # (Auto) 0.02 (0-0.2) K/uL Immature Gran # (Auto) 0.04 H (0.00-0.02) K/uL Sodium 121 L (136-145) mmol/L Potassium 2.6 L (3.5-5.1) mmol/L Chloride 79 L (98-107) mmol/L Carbon Dioxide 31 (21-32) mmol/L Anion Gap 11.0 (3-11) BUN 12 (7-18) mg/dl Creatinine 1.19 (0.6-1.2) mg/dl Est Cr Clr Drug Dosing 44.1 ml/min Est GFR ( Amer) 61.2 Est GFR (Non-Af Amer) 52.8 BUN/Creatinine Ratio 10.1 (10-20) Glucose 108 H (70-99) mg/dl Calcium 9.2 (8.5-10.1) mg/dl Magnesium 2.3 (1.8-2.4) mg/dl Troponin I < 0.015 (0-0.045) ng/ml ECG Data Indication: + vomiting Rate (beats per minute): 87 Rhythm: + normal sinus ECG Intervals/blocks: + Normal QRS, + Normal UT and + Normal QT-c ECG ST segments: + Normal ST segments Additional Comments: U waves present MDM Narrative Vital signs stable. Labs show a potassium of 2.6 and sodium 121. Patient was given 1 L normal saline bolus. Potassium will be started to replace in the emergency department. Patient is not having any neurological deficits seizures or altered mental status required hypertonic saline. [facility] was made aware of the patient. Impression & Plan Acute hypokalemia, Acute hyponatremia Discharge Plan Visit Data Chief Complaint: Abnormal Labs/Diagnostic Testing Stated Complaint: REF BY DOC FOR ABNORMAL LABS ED Provider: Harsha Martini Discharge Problem: Acute hypokalemia, Acute hyponatremia Patient Disposition: Admitted As Inpatient Discharge Instructions Interventions: ED Discharge Assessment Last Done: 04/17/20 22:09
[2020-04-18] MEDS: POTASSIUM CHLORIDE / WTR 10 MEQ/100 ML PLCT IV SCH ×4 (00:20→07:33)
[2020-04-18] MEDS: lamoTRIgine 100 MG TAB PO SCH ×3 (00:22→20:21)
[2020-04-18] MEDS: PANTOprazole 40 MG in SYRINGE 0 ML IV SCH ×3 (00:22→20:21)
[2020-04-18] MEDS: METOPROLOL SUCC 50MG EXT REL TAB PO SCH ×3 (00:30→20:23)
[2020-04-18 01:53] LABS: Blood Urea Nitrogen 12 mg/dl (7-18); Calcium 8.2 mg/dl (8.5-10.1); Carbon Dioxide 32 mmol/L (21-32); Chloride 84 mmol/L (98-107); Creatinine Clr Calc Pharmacy 50.9 ml/min; Est GFR (African American) 73.8; Est GFR (Non-African American) 63.6; Glucose 87 mg/dl (70-99); Potassium 3.2 mmol/L (3.5-5.1); Sodium 124 mmol/L (136-145); Troponin I < 0.015 ng/ml (0-0.045)
[2020-04-18] MEDS ORDERED: POTASSIUM CHLORIDE 20 MEQ TABCR PO STA ×2 (05:59→17:56)
[2020-04-18] MEDS ORDERED: PERFLUTREN LIPID MICROSPHERE (DEFINITY) IV ONE (06:57)
[2020-04-18] MEDS ORDERED: SODIUM CHLORIDE 0.9% 1000ML 500 ML IV ONE (07:26)
[2020-04-18 08:30] LABS: Albumin Level 2.6 gm/dl (3.4-5.0); C Reactive Protein 0.42 mg/dl (0-0.29); Calcium 8.1 mg/dl (8.5-10.1); Creatinine Clr Calc Pharmacy 50.4 ml/min; Est GFR (African American) 72.9; Est GFR (Non-African American) 62.9; Magnesium 2.1 mg/dl (1.8-2.4); Potassium 3.4 mmol/L (3.5-5.1)
--- NOTE | 2020-04-18 08:33 | Nephrology Consultation ---
Date of Consultation April 18, 2020 Assessment & Plan (1) Hypokalemia: improving with resuscitation -continue q4-6 hr bmp -keep on monitor; follow ECGs Present on Admission?: Yes (2) Hyponatremia: hypovolemic by hx; n/V may be multifactorial goal sNa for this evening is 127; improving clinically; continue q4-6 hr bmp; maintain eukalemia Present on Admission?: Yes (3) Acute renal failure: baseline creatinine 0.8. presenting creatinine 1.2, likely prerenal; f/u serial labs -currently no IVF ordered >> will order NS w/ 40 mEq/ L K in 500 mL bag at 100 mL hourly Present on Admission?: Yes History of Present Illness Reason for Consultation: hypokalemia, hyponatremia Requesting Physician: Dr Dove Attending Physician: Lele Garcia MD History of Present Illness 50 y/o F whom I'm asked to see for electrolyte disorders after cardiology sent her to ER to evaluate low sodium/K on OP labs in the setting of generalized weakness and lightheadedness. PMH includes palpitations, seizure disorder, reformed tobacco user w/ asthma hx. Pt came to ER in late January for eval of abdominal pain; had CT w/ po contrast abd pelvis and states has had frequent e mesis since then. she has lost 14 lb in the past month. EGD last month with esophagitis, duodenitis, gastric ulcer. In the ER labs at 2029 showed sNa 121, K 2.6, creat 1.2; at 0130 sNa 124, K 3.2. serum osms 261. ECG in ER remarkable for u waves and prolonged QTc. in ER pt had 1L NS. Pt has been getting multiple po supplements, of K for example. states that with this aggressive resuscitation she feels much better; started full liquid diet early this afternoon Allergies Allergy/AdvReac Type Severity Reaction Status Date / Time verapamil AdvReac Unknown Leg Verified 04/17/20 22:05 numbness Home Medications Home Medications Medication Instructions Recorded Confirmed Type PNV cmb#95-ferrous fumarate-FA 1 tab PO QAM 02/25/19 04/17/20 History [] cyanocobalamin (vitamin B-12) 1,000 mcg PO QAM 02/25/19 04/17/20 History [Vitamin B-12] lamotrigine [Lamictal] 100 mg PO BID 02/25/19 04/17/20 History omeprazole 40 mg PO BID 12/22/19 04/17/20 History lactobacillus combination no.4 0 mmu cells PO DAILY 04/17/20 04/17/20 History [Probiotic] metoprolol succinate See Rx Instructions .ROUTE .COMPLEX 04/17/20 04/17/20 Histo ry Patient History Medical History Bronchitis Epilepsy SVT (supraventricular tachycardia) Tobacco abuse (03/08/14) Surgical History History of cholecystectomy Hx of appendectomy Hx of cholecystectomy S/P ACL repair Social History Smoking Status: Former smoker Tobacco Type: Cigarettes Second Hand Exposure: No; Hx Alcohol Use: No Hx Substance Use: No Preferred Language: Nigerien Communication Ability: Effective [employer]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 Beliefs That Will Affect Care: None marital status: / Current Living Situation: Family Current Living Situation Comment: LIVES WITH SON Feels Safe at Home: Yes Safety Concerns: Feels Safe At This Time Assistive Devices: None Review of Systems Review of Systems: All systems reviewed & are unremarkable except as noted in HPI & below Constitutional: thirsty Physical Exam Constitutional: well developed and well nourished; no acute distress on RA Eyes: EOM intact bilaterally ENMT: Ears: no external ear abnormality Nose: no external nose abnormality Mouth: + dry oral mucous membranes and + edentulous Neck: no nuchal rigidity Respiratory: normal respiratory effort Auscultation: lungs clear to a uscultation bilaterally and + diminished lung sounds Cardiovascular: RRR, no murmur, no edema Gastrointestinal (Abdomen): Inspection/Auscultation: normal bowel sounds Percussion/Palpation: abdomen soft; abdomen nontender Musculoskeletal: Extremities: strength 5/5 throughout Skin: no rashes, warm and dry Neurologic: camejo, fluent speech, no tremor Psychiatric: A+Ox3, euthymic affect Genitourinary: no dickerson Results & Data ([facility]) Vital Signs (Past 12 Hours) Vital Signs Temp Pulse Pulse Resp BP BP Pulse Ox 04/18/20 07:23 36.5 C 69 18 86/60 L 100 10/28/20 04:38 84 04/17/20 22:57 36.6 C 16 110/82 100 04/17/20 22:00 88 19 93/65 L 04/17/20 21:30 85 13 102/74 04/17/20 21:00 79 18 102/78 04/17/20 20:53 83 12 04/17/20 20:44 94 H 12 Pulse Ox 04/18/20 07:23 04/18/20 04:38 04/17/20 22:57 100 04/17/20 22:00 04/17/20 21:30 04/17/20 21:00 04/17/20 20:53 04/17/20 20:44 Laboratory Results 04/18/20 07:40 (1) Acute renal failure Acute renal failure type: unspecified Qualified Code(s): N17.9 - Acute kidney failure, unspecified
[2020-04-18 08:39] LABS: Albumin Globulin Ratio 0.7 (0.9-2); Bilirubin,Total 0.8 mg/dl (0.2-1); Globulin 3.5 gm/dl (2.5-4.0); Phosphorus 2.8 mg/dl (2.5-4.9); Thyroid Stimulating Hormone 2.04 uIu/ml (0.300-4.500); Total Protein 6.1 gm/dl (6.4-8.2)
[2020-04-18] MEDS ORDERED: POTASSIUM CHLORIDE 80 MEQ in SODIUM CHLORIDE 0.9% 1000ML 1,000 ML IV SCH (09:00)
[2020-04-18] MEDS: ADVANCED PROBIOTIC 1250 MG CAPSULE PO SCH (09:25)
[2020-04-18] MEDS: PRENATAL VITAMIN 1 TAB PO SCH (09:25)
[2020-04-18] MEDS: CYANOCOBALAMIN 500 MCG TABLET (VITAMIN B-12) PO SCH (09:25)
[2020-04-18] MEDS ORDERED: POTASSIUM CHLORIDE / WTR 10 MEQ/100 ML PLCT IV ONE (09:32)
[2020-04-18 09:46] LABS: Basophils # (auto) 0.02 K/uL (0-0.2); Basophils % (auto) 0.2 %; Eosinophils # (auto) 0.14 K/uL (0-0.5); Eosinophils % (auto) 1.4 %; Hematocrit (blood only) 38.3 % (37-47); Hemoglobin 13.5 g/dL (12.0-16.0); Immature Granulocytes # (auto) 0.02 K/uL (0.00-0.02); Immature Granulocytes % (auto) 0.2 %; Lymphocytes # (auto) 2.39 K/uL (1.2-3.4); Mean Corpuscular Hemoglobin 34.3 pg (25-34); Mean Corpuscular Hgb Conc 35.2 g/dL (32-36); Mean Corpuscular Volume 97.2 fL (80-100); Mean Platelet Volume 11.9 fL (7.4-10.4); Monocytes # (auto) 0.78 K/uL (0.11-0.59); Monocytes % (auto) 7.8 %; Neutrophils # (auto) 6.62 K/uL (1.4-6.5); Neutrophils % (auto) 66.4 %; Platelet Count 190 K/uL (130-400); RDW Coefficient of Variation 13.1 % (11.5-14.5); RDW Standard Deviation 46.8 fL (36.4-46.3); Red Blood Count 3.94 M/uL (4.2-5.4); White Blood Count 9.97 K/uL (4.8-10.8)
[2020-04-18] MEDS ORDERED: POTASSIUM CHLORIDE 20 MEQ TABCR PO ONE ×2 (10:00→18:25)
--- NOTE | 2020-04-18 10:37 | Gastrointestinal Consultation ---
Date of Consultation April 18, 2020 Assessment & Plan (1) Hyponatremia: (2) Hypokalemia: (3) Nausea & vomiting: Pt is a 50 y/o female w ongoing n/v, poor PO intake admitted w weakness, found to have LEESA and electrolyte derrangement. She recently had EGD findings of esophagitis, gastritis, duodenitis, antral ulcer. - IVF support - Protonix 40mg IV BID - Carafate 1g QID - Anti emetics prn nausea/vomiting - Loose stools s/p cholecystectomy per her report. However will go ahead and c heck stool cx and Cdiff to r/o infectious process which may aggravate N/V symptoms. If negative, add Questran for bile acid diarrhea - CL diet, advance as tolerated Supervising Physician Co-Signing Physician Notes I performed a history and physical examination of the patient today, including specifically on physical exam - soft abdomen. I have discussed the patient's management with the advanced practitioner. Please refer to the nurse practitioner's note for the documented findings and plan of care. Check gastrin level to r/o Noe. PPI. Recall if needed. History of Present Illness Reason for Consultation: Nausea, vomiting Requesting Physician: Dr. Lele Garcia Attending Physician: Dr. Andree Roque History of Present Illness Pt is a 50 y/o female who presented yesterday w persistent n/v, and weakness. Upon eval noted to have hyponatremia, hypokalemia, LEESA. Pt reports being unable to tolerate PO intake except for water and High C. Recently she had EGD by Dr. Bustos on 03/28/2020 w findings of esophagitis, gastritis, duodenitis, antral ulcer. She denies ETOH, tobacco uses, NSAIDs, illicit drugs. She was unable to swallow her Omeprazole, felt it get stuck on mid esophagus. Hasn't tried taking her Carafate or Questran either. She is s/p cholecystectomy and bowels been loose since then. Denies changes in bowel habits or rectal bleeding Allergies Allergy/AdvReac Type Severity Reaction Status Date / Time verapamil AdvReac Unknown Leg Verified 04/17/20 22:05 numbness Home Medications Home Medications Medication Instructions Recorded Confirmed Type PNV cmb#95-ferrous fumarate-FA 1 tab PO QAM 02/25/19 04/17/20 History [] cyanocobalamin (vitamin B-12) 1,000 mcg PO QAM 02/25/19 04/17/20 History [Vitamin B-12] lamotrigine [Lamictal] 100 mg PO BID 02/25/19 04/17/20 History omeprazole 40 mg PO BID 12/22/19 04/17/20 History lactobacillus combination no.4 0 mmu cells PO DAILY 04/17/20 04/17/20 History [Probiotic] metoprolol succinate See Rx Instructions .ROUTE .COMPLEX 04/17/20 04/17/20 History Patient History Medical History Bronchitis Epilepsy SVT (supraventricular tachycardia) Tobacco abuse (03/08/14) Surgical History History of cholecystectomy Hx of appendectomy Hx of cholecystectomy S/P ACL repair Social History Smoking Status: Former smoker Tobacco Type: Cigarettes Second Hand Exposure: No; Hx Alcohol Use: No Hx Substance Use: No Preferred Language: Upper Sorbian Communication Ability: Effective 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 Beliefs That Will Affect Care: None marital status: / Current Living Situation: Family Current Living Situation Comment: LIVES WITH SON Feels Safe at Home: Yes Safety Concerns: Feels Safe At This Time Assistive Devices: None Review of Systems Review of Systems: All systems reviewed & are unremarkable except as noted in HPI & below Physical Exam Constitutional: WD/WN, vitals as above well groomed, cooperative and comfortable Eyes: PERRL, conjunctivae normal, anicteric sclerae ENMT: external ear and nose normal, oropharynx normal Respiratory: normal respiratory effort, lungs clear to auscultation Cardiovascular: RRR, no murmur, no edema Gastrointestinal (Abdomen): normal bowel sounds, soft, nontender, no hepatosplenomegaly Skin: no rashes, warm and dry no jaundice Neurologic: Motor/Sensory: no asterixis Psychiatric: A+Ox3, euthymic affect Lymphatic: no lymphedema Results & Data ([place]) Vital Signs (Past 12 Hours) Vital Signs Temp Pulse Pulse Resp BP Pulse Ox Pulse Ox 04/18/20 07:23 36.5 C 69 18 86/60 L 100 04/18/20 04:38 84 04/17/20 22:57 36.6 C 16 110/82 100 100
[2020-04-18] MEDS: SUCRALFATE 1 GM/10 ML UDC PO SCH ×3 (12:25→20:21)
--- NOTE | 2020-04-18 12:26 | Hospitalist Progress Note ---
Date of Service April 18, 2020 Assessment & Plan (1) Nausea & vomiting: -as per history and physical on 04/17/2020 "50-year-old female with history of persistent nausea and vomiting, esophagitis, gastric ulcer, duodenitis, PACs and PVCs, asthma, presenting with weakness, lightheadedness. Patient follows with [facility] GI clinic, for intractable nausea and vomiting. Recent EGD revealed esophagitis, gastric ulcer, duodenitis. Patient is currently taking omeprazole 40 mg and has not taken sucralfate, and cholestyramine as of yet. Patient reports that she has persistent nausea and vomiting for the past few weeks. She did not tolerate any food or beverages due to severe nausea and vomiting. She has been only drinking High C orange drink and ice water since that time. Patient reports weight loss of around 15 pounds for the past month. Patient has been having progressive weakness and lightheadedness prompting consult to the ER. At the ER, patient was found to have sodium of 121 and potassium of 2.6" -given IV fluids, prn anti-emetics -Protonix IV every 12 hours -Carafate 1g QID -as per gastroenterology consult 04/18/2020: Loose stools s/p cholecystectomy per her report. However will go ahead and check stool cx and Cdiff to r/o infectious process which may aggravate N/V symptoms. If negative, add Questran for bile acid diarrhea" -normal amylase, normal lipase -normal ESR, negative procalcitonin so this does not suggest for an infectious process -currently on liquid diet, advance diet as tolerated -chief controller tower consult Dehydration, Pre-Renal Acute Kidney Injury -dizziness symptoms improved with IV hydration -creatinine 1.19 on presentation declined with IV fluids (2) Hyponatremia: -serum sodium 121 on ED presentation on 04/17/2020 -serum sodium improved to 124 as of 04/18/2020, will trend the labs -nephrology consult following the patient -normal TSH (3) Hypokalemia: -serum potassium 2.6 on ED presentation on 04/17/2020 -improving with potassium supplementation, trend the labs Abnormal EKG History of PACs, PVCs -In the ED, the EKG with T wave inversions in the inferior and anterolateral leads, prolonged QT of 488 -no chest pain, troponins negative, echocardiogram with normal ejection fraction, no acute events on telemetry to date -Continue home dose metoprolol 50 mg twice a day History of Seizure -in the past -continue home dose lamotrigine 100 mg BID History of asthma -patient not using Breo, ot in exacerbation CODE STATUS: Full code DVT prophylaxis SCDs for now Admission and Anticipated Discharge Date Admission Date: April 17, 2020 Subjective Patient seen and examined while on IV fluids and potassium supplements. She is eating the liquid diet for lunch. She feels symptomatically improved. She reports resolution of dizziness with IV hydration. She reports decrease in frequency of nausea. She denies abdominal pain. breathing on room air. she denies dyspnea. no chest pain. denies other acute symptoms Review of Systems Review of Systems: All systems reviewed & are unremarkable except as noted in Subjective Physical Exam Constitutional: cooperative and comfortable Eyes: PERRL, conjunctivae normal, anicteric sclerae EOM intact bilaterally ENMT: external ear and nose normal, oropharynx normal Neck: normal visual inspection Respiratory: normal respiratory effort, lungs clear to auscultation Cardiovascular: Rate/Rhythm: regular rate Gastrointestinal (Abdomen): normal bowel sounds, soft, nontender, no hepatosplenomegaly Musculoskeletal: Head/Neck/Chest: normocephalic and head atraumatic Neurologic: PERRL, EOMI, accommodation nl, no face palsy, no dysarthria moves all extremities Psychiatric: A+Ox3, euthymic affect Results & Data Results & Data ([facility]) Vital Signs (Past 12 Hours) Vital Signs Temp Pulse Pulse Resp BP Pulse Ox 04/18/20 08:00 79 04/18/20 07:23 36.5 C 69 18 86/60 L 100 04/18/20 04:38 84
[2020-04-18] MEDS ORDERED: [UNRECOGNIZED DRUG - REMARK] ONE (14:00)
[2020-04-18 14:31] LABS: Albumin Level 2.3 gm/dl (3.4-5.0); BUN Creatinine Ratio 8.2 (10-20); Bilirubin,Total 0.5 mg/dl (0.2-1); Calcium 7.1 mg/dl (8.5-10.1); Creatinine Clr Calc Pharmacy 51.9 ml/min; Est GFR (African American) 75.5; Est GFR (Non-African American) 65.2; Potassium 3.2 mmol/L (3.5-5.1)
[2020-04-18 14:33] LABS: Albumin Globulin Ratio 0.8 (0.9-2); Total Protein 5.3 gm/dl (6.4-8.2)
[2020-04-18 16:02] LABS: Appearance Urine Clear (Clear); Bilirubin Urine Negative (Negative); Blood Urine Negative (Negative); Color Urine Yellow; Glucose Urine UA 2+ (Negative); Ketones Urine 1+ (Negative); Leukocyte Esterase Urine Negative (Negative); Nitrite Urine Negative (Negative); Protein Urine Negative (Negative); Specific Gravity Urine 1.005 (1.000-1.030); Urobilinogen Urine Negative (Negative); pH Urine 7.5 (4.5-7.5)
[2020-04-19 05:38] LABS: BUN Creatinine Ratio 4.3 (10-20); Calcium 7.8 mg/dl (8.5-10.1); Creatinine Clr Calc Pharmacy 58.3 ml/min; Potassium 3.8 mmol/L (3.5-5.1)
--- NOTE | 2020-04-19 05:53 | Electrocardiogram Report ---
Test Reason : Blood Pressure : / mmHG Vent. Rate : 087 BPM Atrial Rate : 087 BPM P-R Int : 178 ms QRS Dur : 086 ms QT Int : 406 ms P-R-T Axes : 074 070 -85 degrees QTc Int : 488 ms Normal sinus rhythm Biatrial enlargement Prolonged QT Abnormal ECG When compared with ECG of 22-DEC-2019 15:40, T wave inversion more evident in Inferior leads T wave inversion more evident in Anterior leads QT has lengthened Confirmed by Jose Lopez ([id number]) on 04/19/2020 5:53:46 AM Referred By: Randy Sanchez Confirmed By:Jose Lopez
[2020-04-19 05:57] LABS: Phosphorus 1.5 mg/dl (2.5-4.9)
[2020-04-19] MEDS ORDERED: POTASSIUM PHOS 3 MMOL/1 ML INFUSION IV STA (06:12)
--- NOTE | 2020-04-19 06:13 | Electrocardiogram Report ---
Test Reason : Blood Pressure : / mmHG Vent. Rate : 067 BPM Atrial Rate : 067 BPM P-R Int : 180 ms QRS Dur : 088 ms QT Int : 490 ms P-R-T Axes : 069 074 -68 degrees QTc Int : 517 ms Normal sinus rhythm Prolonged QT Abnormal ECG When compared with ECG of 17-APR-2020 20:23, No significant change was found Confirmed by Jose Lopez ([id number]) on 04/19/2020 6:12:51 AM Referred By: Randy Sanchez Confirmed By:Jose Lopez
[2020-04-19] MEDS ORDERED: POTASSIUM PHOSPHATE 24 MMOL in SODIUM CHLORIDE 0.9% 500 ML IV ONE (06:30)
[2020-04-19] MEDS: PANTOprazole 40 MG in SYRINGE 0 ML IV SCH ×2 (08:00→21:27)
[2020-04-19] MEDS: lamoTRIgine 100 MG TAB PO SCH ×2 (08:00→21:27)
[2020-04-19] MEDS: ADVANCED PROBIOTIC 1250 MG CAPSULE PO SCH (08:00)
[2020-04-19] MEDS: CYANOCOBALAMIN 500 MCG TABLET (VITAMIN B-12) PO SCH (08:00)
[2020-04-19] MEDS: SUCRALFATE 1 GM/10 ML UDC PO SCH ×4 (08:01→21:27)
[2020-04-19] MEDS: METOPROLOL SUCC 50MG EXT REL TAB PO SCH ×2 (08:01→21:28)
[2020-04-19] MEDS: PRENATAL VITAMIN 1 TAB PO SCH (08:01)
[2020-04-19] MEDS ORDERED: SODIUM PHOSPHATE 3 MMOL/1 ML INFUSION IV STA (08:33)
[2020-04-19] MEDS ORDERED: POTASSIUM CHLORIDE 20 MEQ TABCR PO SCH (09:00)
--- NOTE | 2020-04-19 09:22 | Hospitalist Progress Note ---
Date of Service April 19, 2020 Assessment & Plan (1) Nausea & vomiting: -as per history and physical on 04/17/2020 "50-year-old female with history of persistent nausea and vomiting, esophagitis, gastric ulcer, duodenitis, PACs and PVCs, asthma, presenting with weakness, lightheadedness. Patient follows with [facility] GI clinic, for intractable nausea and vomiting. Recent EGD revealed esophagitis, gastric ulcer, duodenitis. Patient is currently taking omeprazole 40 mg and has not taken sucralfate, and cholestyramine as of yet. Patient reports that she has persistent nausea and vomiting for the past few weeks. She did not tolerate any food or beverages due to severe nausea and vomiting. She has been only drinking High C orange drink and ice water since that time. Patient reports weight loss of around 15 pounds for the past month. Patient has been having progressive weakness and lightheadedness prompting consult to the ER. At the ER, patient was found to have sodium of 121 and potassium of 2.6" -given IV fluids, prn anti-emetics -Protonix IV every 12 hours -Carafate 1g QID -as per gastroenterology consult 04/18/2020: Loose stools s/p cholecystectomy per her report. However will go ahead and check stool cx and Cdiff to r/o infectious process which may aggravate N/V symptoms. 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 Patient continues to need electrolyte supplementation in the hospital. Patient encouraged to ambulate with PT/OT. Patient denies any complaints of pain. continues to be breathing well on room air. no shortness of breath. Patient denies dizziness. denies headache. denies other symptoms currently Dehydration, Pre-Renal Acute Kidney Injury -dizziness symptoms improved with IV hydration -creatinine 1.19 on hospital presentation declined with IV fluids (2) Hyponatremia: -serum sodium 121 on ED presentation on 04/17/2020 -serum sodium improved to 124 as of 04/18/2020; serum sodium 127 on 04/19/2020 -nephrology consult following the patient -normal TSH (3) Hypokalemia: -serum potassium 2.6 on ED presentation on 04/17/2020 -as of 04/19/2020 serum potassium normalized after potassium supplementation on this hospital stay so far Hypophosphatemia -serum phosphorous 1.5; patient receiving IV phosphorous, will give ora phosphorous supplements as well, trend the serum phosphorous levels Abnormal EKG History of PACs, PVCs -In the ED, the EKG with T wave inversions in the inferior and anterolateral leads, prolonged QT of 488 -no chest pain, troponins negative, echocardiogram with normal ejection fraction, no acute events on telemetry to date -Continue home dose metoprolol 50 mg twice a day History of Seizure -in the past -continue home dose lamotrigine 100 mg BID History of asthma -patient not using Breo, not in exacerbation CODE STATUS: Full code DVT prophylaxis SCDs for now Admission and Anticipated Discharge Date Admission Date: April 17, 2020 Subjective -04/19/2020: as of AM, patient reporting that she has been doing well with the liquid diet and that the nausea has generally gone away, will try to advance patent to regular diet. Patient continues to need electrolyte supplementation in the hospital. Patient encouraged to ambulate with PT/OT. Patient denies any complaints of pain. continues to be breathing well on room air. no shortness of breath. Patient denies dizziness. denies headache. denies other symptoms curr ently Review of Systems Review of Systems: All systems reviewed & are unremarkable except as noted in Subjective Physical Exam Constitutional: cooperative and comfortable Eyes: PERRL, conjunctivae normal, anicteric sclerae EOM intact bilaterally ENMT: external ear and nose normal, oropharynx normal Neck: normal visual inspection Respiratory: normal respiratory effort, lungs clear to auscultation Cardiovascular: Rate/Rhythm: regular rate Gastrointestinal (Abdomen): normal bowel sounds, soft, nontender, no hepatosplenomegaly Musculoskeletal: Head/Neck/Chest: normocephalic and head atraumatic Neurologic: PERRL, EOMI, accommodation nl, no face palsy, no dysarthria moves all extremities Psychiatric: A+Ox3, euthymic affect Results & Data Results & Data ([facility]) Vital Signs (Past 12 Hours) Vital Signs Temp Pulse Resp BP Pulse Ox 04/19/20 07:28 36.4 C L 69 18 93/61 L 100 04/19/20 04:24 36.3 C L 69 18 93/64 L 100 04/18/20 23:33 36.4 C L 76 18 90/61 L 98
--- NOTE | 2020-04-19 10:27 | Nephrology Progress Note ---
Date of Service April 19, 2020 Assessment & Plan (1) Hypokalemia: resolved with resuscitation -continue daily supplement -continue q12h bmp (note already ordered) -keep on monitor (2) Hyponatremia: hypovolemic by hx; n/V may be multifactorial; at goal -goal sNa for this evening is 133>>note that she has been started on D51/2NS for 500 mL > reasonable and recheck labs in am (3) Acute renal failure: baseline creatinine 0.8. presenting creatinine 1.2, likely prerenal -- back to 0.9 now, 1.0 this am -frequent bmp as above -ensure hydration as above Admission and Anticipated Discharge Date Admission Date: April 17, 2020 Subjective no interval events; tolerating po; no sob; no abd pain, no n/v Review of Systems Review of Systems: All systems reviewed & are unremarkable except as noted in HPI & below Physical Exam Constitutional: well developed and well nourished; no acute distress Eyes: EOM intact bilaterally ENMT: Ears: no external ear abnormality Nose: no external nose abnormality Mouth: + dry oral mucous membranes and + edentulous Neck: no nuchal rigidity Respiratory: normal respiratory effort Auscultation: lungs clear to auscultation bilaterally and + diminished lung sounds Cardiovascular: RRR, no murmur, no edema Gastrointestinal (Abdomen): Inspection/Auscultation: normal bowel sounds Percussion/Palpation: abdomen soft; abdomen nontender Musculoskeletal: Extremities: strength 5/5 throughout Skin: no rashes, warm and dry Neurologic: camejo, fluent speech, no tremor Psychiatric: A+Ox3, euthymic affect Results & Data ([facility]) Vital Signs (Past 12 Hours) Vital Signs Temp Pulse Resp BP Pulse Ox 04/19/20 07:28 36.4 C L 69 18 93/61 L 100 04/19/20 04:24 36.3 C L 69 18 93/64 L 100 04/18/20 23:33 36.4 C L 76 18 90/61 L 98 Laboratory Results 04/18/20 07:40 04/19/20 05:05 (1) Acute renal failure Acute renal failure type: unspecified Qualified Code(s): N17.9 - Acute kidney failure, unspecified
[2020-04-19] MEDS ORDERED: POT PHOSPHATE MONOBASIC W/ SOD TAB PO SCH (13:00)
[2020-04-19 15:13] LABS: BUN Creatinine Ratio 2.7 (10-20); Calcium 7.8 mg/dl (8.5-10.1); Creatinine Clr Calc Pharmacy 55.3 ml/min; Est GFR (African American) 76.5; Potassium 4.1 mmol/L (3.5-5.1)
[2020-04-19 16:08] LABS: Phosphorus 3.8 mg/dl (2.5-4.9)
[2020-04-19] MEDS ORDERED: D5W IV SCH (16:15)
[2020-04-19] MEDS ORDERED: [UNRECOGNIZED DRUG - OTHER] IV SCH (16:15)
[2020-04-20] MEDS ORDERED: ACETAMINOPHEN 325 MG TAB PO PRN (01:26)
[2020-04-20] MEDS ORDERED: ACETAMINOPHEN 325 MG TAB ONE (01:31)
[2020-04-20 07:35] LABS: Calcium 7.9 mg/dl (8.5-10.1); Est GFR (African American) 93.3; Est GFR (Non-African American) 80.5; Magnesium 1.8 mg/dl (1.8-2.4); Phosphorus 3.8 mg/dl (2.5-4.9)
[2020-04-20] MEDS: ADVANCED PROBIOTIC 1250 MG CAPSULE PO SCH (07:48)
[2020-04-20] MEDS: SUCRALFATE 1 GM/10 ML UDC PO SCH (07:48)
[2020-04-20] MEDS: PRENATAL VITAMIN 1 TAB PO SCH (07:48)
[2020-04-20] MEDS: lamoTRIgine 100 MG TAB PO SCH (07:48)
[2020-04-20] MEDS: PANTOprazole 40 MG in SYRINGE 0 ML IV SCH (07:49)
[2020-04-20] MEDS: METOPROLOL SUCC 50MG EXT REL TAB PO SCH (07:50)
[2020-04-20] MEDS: CYANOCOBALAMIN 500 MCG TABLET (VITAMIN B-12) PO SCH (07:53)
[2020-04-20] MEDS ORDERED: MAGNESIUM SULFATE / D5W 1 GM/100 ML BAG IV ONE (08:15)
[2020-04-20 08:44] LABS: Potassium 3.4 mmol/L (3.5-5.1)
[2020-04-20] MEDS ORDERED: MAGNESIUM OXIDE 400 MG TAB PO SCH (09:00)
--- NOTE | 2020-04-20 09:55 | Nephrology Progress Note ---
Date of Service April 20, 2020 Assessment & Plan (1) Hypokalemia: resolved with resuscitation -recommend for now resuming daily supplement 20mEq daily (so done) and gave extra 20 mEq this am as well for 40 mEq total -continue bid bmp for now -keep on monitor (2) Hyponatremia: hypovolemic by hx; n/V may be multifactorial; at goal now (3) Acute renal failure: baseline creatinine 0.8. presenting creatinine 1.2, likely prerenal -- back to 0.9 now, 1.0 this am -frequent bmp as above -ensure hydration as above Admission and Anticipated Discharge Date Admission Date: April 17, 2020 Subjective seen on rounds this am; cont to feel improvement in tolerating po; no sob, no abd pain or N; stable chronic diarrhea 5 bm/day; no voidign concerns Review of Systems Review of Systems: All systems reviewed & are unremarkable except as noted in HPI & below Physical Exam Constitutional: well developed and well nourished; no acute distress Eyes: EOM intact bilaterally ENMT: Ears: no external ear abnormality Nose: no external nose abnormality Mouth: + dry oral mucous membranes and + edentulous Neck: no nuchal rigidity Respiratory: normal respiratory effort Auscultation: lungs clear to auscultation bilaterally and + diminished lung sounds Cardiovascular: RRR, no murmur, no edema Gastrointestinal (Abdomen): Inspection/Auscultation: normal bowel sounds Percussion/Palpation: abdomen soft; abdomen nontender Musculoskeletal: Extremities: strength 5/5 throughout Skin: no rashes, warm and dry Neurologic: camejo, fluent speech, no tremor Psychiatric: A+Ox3, euthymic affect Results & Data ([facility]) Vital Signs (Past 12 Hours) Vital Signs Temp Pulse Resp BP Pulse Ox 04/20/20 07:27 36.3 C L 84 18 121/78 100 04/20/20 04:26 36.7 C 90 18 96/61 L 98 04/19/20 23:41 36.5 C 96 H 18 90/63 L 97 Laboratory Results 04/18/20 07:40 04/20/20 06:27 (1) Acute renal failure Acute renal failure type: unspecified Qualified Code(s): N17.9 - Acute kidney failure, unspecified
[2020-04-20] MEDS ORDERED: POTASSIUM CHLORIDE 20 MEQ TABCR PO ONE (10:00)
[2020-04-20] MEDS ORDERED: POTASSIUM CHLORIDE 20 MEQ TABCR PO SCH (10:00)
--- NOTE | 2020-04-20 11:03 | Hospitalist Progress Note ---
Date of Service April 20, 2020 Assessment & Plan (1) Nausea & vomiting: -as per history and physical on 04/17/2020 "50-year-old female with history of persistent nausea and vomiting, esophagitis, gastric ulcer, duodenitis, PACs and PVCs, asthma, presenting with weakness, lightheadedness. Patient follows with [facility] GI clinic, for intractable nausea and vomiting. Recent EGD revealed esophagitis, gastric ulcer, duodenitis. Patient is currently taking omeprazole 40 mg and has not taken sucralfate, and cholestyramine as of yet. Patient reports that she has persistent nausea and vomiting for the past few weeks. She did not tolerate any food or beverages due to severe nausea and vomiting. She has been only drinking High C orange drink and ice water since that time. Patient reports weight loss of around 15 pounds for the past month. Patient has been having progressive weakness and lightheadedness prompting consult to the ER. At the ER, patient was found to have sodium of 121 and potassium of 2.6" -given IV fluids, prn anti-emetics -Protonix IV every 12 hours -Carafate 1g QID -as per gastroenterology consult 04/18/2020: Loose stools s/p cholecystectomy per her report. However will go ahead and check stool cx and Cdiff to r/o infectious process which may aggravate N/V symptoms. 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 Patient continues to need electrolyte supplementation in the hospital. Patient encouraged to ambulate with PT/OT. Patient denies any complaints of pain. continues to be breathing well on room air. no shortness of breath. Patient denies dizziness. denies headache. denies other symptoms currently -04/20/2020 discharge medications sent electronically to [facility] pharmacy [address] [place] [phone] of potassium 20 meq daily for 10 days of magnesium oxide 400 mg daily x 10 days of carafate 1 gram QID for 10 days to continue trial of therapy to reduce nausea of trial of cholestyramine (Questran) BID for 14 days to reduce diarrhea from bile acid in intestines that can lead to loose stools Dehydration, Pre-Renal Acute Kidney Injury -dizziness symptoms improved with IV hydration -creatinine 1.19 on hospital presentation declined with IV fluids (2) Hyponatremia: -serum sodium 121 on ED presentation on 04/17/2020 -serum sodium improved to 124 as of 04/18/2020; serum sodium 127 on 04/19/2020 -nephrology consult evaluated the -normal TSH -serum sodium 136 on 04/20/2020 (3) Hypokalemia: -serum potassium 2.6 on ED presentation on 04/17/2020 -as of 04/19/2020 serum potassium normalized after potassium supplementation on this hospital stay so far Hypophosphatemia -04/19/2020 serum phosphorous 1.5; patient received IV and oral phosphorous -normalized serum phosphorous subsequently Abnormal EKG History of PACs, PVCs -In the ED, the EKG with T wave inversions in the inferior and anterolateral leads, prolonged QT of 488 -no chest pain, troponins negative, echocardiogram with normal ejection fractio n, no acute events on telemetry to date -Continue home dose metoprolol 75 mg in AM and 50 mg qhs History of Seizure -in the past -continue home dose lamotrigine 100 mg BID History of asthma -patient not using Breo, not in exacerbation CODE STATUS: Full code Admission and Anticipated Discharge Date Admission Date: April 17, 2020 Subjective Patient does not have further abdominal symptoms. she has been ambulatory. her electrolytes generally normalized. she received additional potassium and magnesium supplements. Discharge plans and instructions discussed No chest pain. no shortness of breath. no nausea. no other symptoms Review of Systems Review of Systems: All systems reviewed & are unremarkable except as noted in Subjective Physical Exam Constitutional: cooperative and comfortable Eyes: PERRL, conjunctivae normal, anicteric sclerae EOM intact bilaterally ENMT: external ear and nose normal, oropharynx normal Neck: normal visual inspection Respiratory: normal respiratory effort, lungs clear to auscultation Cardiovascular: Rate/Rhythm: regular rate Gastrointestinal (Abdomen): normal bowel sounds, soft, nontender, no hepatosplenomegaly Musculoskeletal: Head/Neck/Chest: normocephalic and head atraumatic Neurologic: PERRL, EOMI, accommodation nl, no face palsy, no dysarthria moves all extremities Psychiatric: A+Ox3, euthymic affect Results & Data Results & Data ([facility]) Vital Signs (Past 12 Hours) Vital Signs Temp Pulse Resp BP Pulse Ox 04/20/20 07:27 36.3 C L 84 18 121/78 100 04/20/20 04:26 36.7 C 90 18 96/61 L 98 04/19/20 23:41 36.5 C 96 H 18 90/63 L 97
--- NOTE | 2020-04-20 11:06 | Discharge Summary ---
Date of Service April 20, 2020 Admission HPI Per Admitting Provider 50-year-old female with history of persistent nausea and vomiting, esophagitis, gastric ulcer, duodenitis, PACs and PVCs, asthma, presenting with weakness, lightheadedness. Patient follows with [facility] GI clinic, for intractable nausea and vomiting. Recent EGD revealed esophagitis, gastric ulcer, duodenitis. Patient is currently taking omeprazole 40 mg and has not taken sucralfate, and cholestyramine as of yet. Patient reports that she has persistent nausea and vomiting for the past few weeks. She did not tolerate any food or beverages due to severe nausea and vomiting. She has been only drinking High C orange drink and ice water since that time. Patient reports weight loss of around 15 pounds for the past month. Patient has been having progressive weakness and lightheadedness prompting consult to the ER. At the ER, patient was found to have sodium of 121 and potassium of 2.6. On exam, patient was seen sitting up in bed, comfortable, not in distress, awake alert oriented x3. She reports feeling improved somewhat after IV fluids have been started in the ER. She denies having active headache, dizziness, chest pain, shortness of breath, nausea vomiting, abdominal pain, problems urination/bowel movement. No other symptom Principal Diagnosis Nausea & vomiting Dehydration, Pre-Renal Acute Kidney Injury Hyponatremia Hypokalemia Discharge Exam Constitutional cooperative and comfortable Eyes PERRL, conjunctivae normal, anicteric sclerae EOM intact bilaterally ENMT external ear and nose normal, oropharynx normal Neck normal visual inspection Respiratory normal respiratory effort, lungs clear to auscultation Cardiovascular Rate/Rhythm: regular rate Gastrointestinal (Abdomen) normal bowel sounds, soft, nontender, no hepatosplenomegaly Musculoskeletal Head/Neck/Chest: normocephalic and head atraumatic Neurologic PERRL, EOMI, accommodation nl, no face palsy, no dysarthria moves all extremities Psychiatric A+Ox3, euthymic affect Discharge Data Allergies Allergy/AdvReac Type Severity Reaction Status Date / Time verapamil AdvReac Unknown Leg Verified 04/17/20 22:05 numbness Consultations 04/17/20 21:19 ED Decision to Admit Stat 04/17/20 23:30 Consult Gastroenterology Routine Consult Nephrology Routine Hospital Course (1) Nausea & vomiting: -as per history and physical on 04/17/2020 "50-year-old female with history of persistent nausea and vomiting, esophagitis, gastric ulcer, duodenitis, PACs and PVCs, asthma, presenting with weakness, lightheadedness. Patient follows with [facility] GI clinic, for intractable nausea and vomiting. Recent EGD revealed esophagitis, gastric ulcer, duodenitis. Patient is currently taking omeprazole 40 mg and has not taken sucralfate, and cholestyramine as of yet. Patient reports that she has persistent nausea and vomiting for the past few weeks. She did not tolerate any food or beverages due to severe nausea and vomiting. She has been only drinking High C orange drink and ice water since that time. Patient reports weight loss of around 15 pounds for the past month. Patient has been having progressive weakness and lightheadedness prompting consult to the ER. At the ER, patient was found to have sodium of 121 and potassium of 2.6" -given IV fluids, prn anti-emetics -Protonix IV every 12 hours -Carafate 1g QID -as per gastroenterology consult 04/18/2020: Loose stools s/p cholecystectomy per her report. However will go ahead and check stool cx and Cdiff to r/o infectious process which may aggravate N/V symptoms. 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 Patient continues to need electrolyte supplementation in the hospital. Patient encouraged to ambulate with PT/OT. Patient denies any complaints of pain. continues to be breathing well on room air. no shortness of breath. Patient denies dizziness. denies headache. denies other symptoms currently -04/20/2020 discharge medications sent electronically to [facility] pharmacy [address] [place] [phone] of potassium 20 meq daily for 10 days of magnesium oxide 400 mg daily x 10 days of carafate 1 gram QID for 10 days to continue trial of therapy to reduce nausea of trial of cholestyramine (Questran) BID for 14 days to reduce diarrhea from bile acid in intestines that can lead to loose stools Dehydration, Pre-Renal Acute Kidney Injury -dizziness symptoms improved with IV hydration -creatinine 1.19 on hospital presentation declined with IV fluids (2) Hyponatremia: -serum sodium 121 on ED presentation on 04/17/2020 -serum sodium improved to 124 as of 04/18/2020; serum sodium 127 on 04/19/2020 -nephrology consult evaluated the -normal TSH -serum sodium 136 on 04/20/2020 (3) Hypokalemia: -serum potassium 2.6 on ED presentation on 04/17/2020 -as of 04/19/2020 serum potassium normalized after potassium supplementation on this hospital stay so far Hypophosphatemia -04/19/2020 serum phosphorous 1.5; patient received IV and oral phosphorous -normalized serum phosphorous subsequently Abnormal EKG History of PACs, PVCs -In the ED, the EKG with T wave inversions in the inferior and anterolateral leads, prolonged QT of 488 -no chest pain, troponins negative, echocardiogram with normal ejection fraction, no acute events on telemetry to date -Continue home dose metoprolol 75 mg in AM and 50 mg qhs History of Seizure -in the past -continue home dose lamotrigine 100 mg BID History of asthma -patient not using Breo, not in exacerbation CODE STATUS: Full code Total Time Total Time Spent Total Time Spent (In Minutes): 40 minutes Total Time Includes: Examination of the Patient, Discharge Planning, Medication Reconciliation and Communication With Other Providers Discharge Plan Discharge Items Patient Disposition: Home - Self-Care Reason For Visit: HYPONATREMIA Discharge Diagnosis: Nausea & vomiting Dehydration, Pre-Renal Acute Kidney Injury Hyponatremia Hypokalemia Condition on Discharge: Good Activity: Resume your previous activity Non-emergency contact: Primary Care Provider Call non-emergency contact if: you have any medication questions Follow-up/Referrals: Segun Osborne MD [Primary Care Provider] - 04/25/20 8:45 am Diet: Regular Addtl Attending Provider Instructions: discharge medications sent electronically to [facility] pharmacy [address] [place] [phone] of potassium 20 meq daily for 10 days of magnesium oxide 400 mg daily x 10 days of carafate 1 gram QID for 10 days to continue trial of therapy to reduce nausea of trial of cholestyramine (Questran) BID for 14 days to reduce diarrhea from bile acid in intestines that can lead to loose stools upcoming scheduled appointments 04/25/2020 9:00 AM Provider Segun Osborne MD Department Family Pra ctice [facility] 04/25/2020 3:45 PM Provider German Whitney MD Department [facility] Gynecology/Obstetrics 04/26/2020 2:30 PM Provider [facility] Department [facility] 04/26/2020 3:00 PM Provider US1 [facility] Radiology [facility] 07/04/2019 Time: 1:30 PM Location: ENDOSCOPY [facility]; Procedure: ESOPHAGOGASTRODUODENOSCOPY (EGD), FLEXIBLE, TRANSORAL, DIAGNOSTIC 05/08/2020 8:00 AM Provider NM1 [facility] Department [facility] 05/16/2020 9:00 AM Provider Jeffry Bustos MD Department Gastroenterology, [facility] Pending Studies at Discharge: No Stand-Alone Forms: [facility], Smoking Cessation Medications and DC Order Prescriptions: New potassium chloride [Klor-Con M20] 20 mEq Tablet,Er Particles/Crystals 20 meq PO QAM 10 Days Qty: 10 RF: 0 magnesium oxide 400 mg (241.3 mg magnesium) Tablet 400 mg PO QAM 10 Days Qty: 10 RF: 0 Cholestyramine Light 4 gram Powder In Packet 4 g PO BID@1000,2200 14 Days Qty: 28 RF: 0 sucralfate 100 mg/mL Suspension 10 ml PO QID 10 Days Qty: 400 RF: 0 Continued cyanocobalamin (vitamin B-12) [Vitamin B-12] 1,000 mcg Tablet 1,000 mcg PO QAM RF: 0 lamotrigine [Lamictal] 100 mg tablet 100 mg PO BID RF: 0 PNV cmb#[id number]-ferrous fumarate-FA [] 28 mg iron- 800 mcg Tablet 1 tab PO QAM RF: 0 metoprolol succinate 50 mg tablet extended release 24 hr See Rx Instructions .ROUTE .COMPLEX RF: 0 Probiotic 3 billion cell Capsule 0 mmu cells PO DAILY RF: 0 omeprazole 40 mg Capsule,Delayed Release(Dr/Ec) 40 mg PO BID RF: 0 Discharge Orders: Discharge Order (Routine); Ordered 04/20/20 Ordered By: Lele Garcia Admission Data Admit Date/Time: 04/17/20 21:42 Attending Provider: Lele Garcia Admit Provider: Yony Dove Primary Care Provider: Segun Osborne Other Providers: Yony Dove ; Andree Roque ; Millicent Bass
[2020-04-20] MEDS ORDERED: CHOLESTYRAMINE LIGHT 4 GM PKT PO SCH (22:00)
== END 2020-04-20 12:37 | disposition home or self-care (01) | DRG 641 ==
LOC: ED 19:39 → 2S 21:42 → SUATTDRO 21:42 → 2S 22:09

== ENCOUNTER 2022-01-11 19:47 | Inpatient (IN) ==
[2022-01-11] MEDS ORDERED: SODIUM CHLORIDE 0.9% 1000ML 1,000 ML IV STA (19:54)
[2022-01-11] MEDS ORDERED: SODIUM CHLORIDE 0.9% 500 ML IV STA (19:54)
[2022-01-11] MEDS ORDERED: ONDANSETRON INJ 2 MG/ML 2 ML VIAL IV STA (20:01)
--- NOTE | 2022-01-11 20:01 | Emergency Department Note ---
Impression & Plan Acute hyponatremia, Nausea & vomiting, Acute hypokalemia, Abnormal ECG ED Provider Note INFORMANT: Patient ED PROVIDER(S): Alexy Mukherjee MD CHIEF COMPLAINT: Abnormal labs PLAN: Disposition: Admitted Condition: Good Outpatient prescription management: none Referral: None MEDICAL DECISION MAKING: Patient present because of abnormal labs and also decreased p.o. intake with nausea and vomiting. She has a history of low sodium and potassium the past. An IV was established. She did complain of right flank pain. Twelve-lead ECG was performed and showed anterior and inferior T wave inversions which were new compared to prior. Chemistry panel revealed hyponatremia and hypokalemia. Troponin was negative. Patient's CT head did not reveal any acute pathology. She was given IV normal saline and IV and oral potassium. Further management in the hospital will be necessary. [facility] Patient was admitted in the ER for further management. Triage Nursing notes reviewed and agree them. Vital Signs: reviewed and remarkable for no significant abnormalities Differential diagnosis: Infection, dehydration, metabolic abnormality, hypo/hyperglycemia, electrolyte disturbance, anemia, hypoxia, cardiac sources, intracerebral event, toxicologic, neurologic, as well as other pathologies. Diagnostics interpreted by me: ECG: Twelve-lead ECG reveals normal sinus rhythm at 73 bpm. There is inferior and anterolateral T wave inversions. No ST elevation. When compared to ECG of 19 December 2020 the inferior changes are new along with the anterolateral changes of T wave inversion. Cardiac Monitoring: Cardiac monitoring ordered by me: The patient was placed on continuous cardiac monitoring and observed. It revealed a normal sinus rhythm at 65 beats per minute without ectopy or evidence of dysrhythmia. Imaging studies: CT scan as above. HPI: The patient is a 51 year old female who presents to the Emergency Room with complaints of nausea and vomiting. This started weeks ago and is worse this week. The patient also notes the following associated symptoms, chronic diarrhea, lightheadedness. The patient has found no relieving factors. Current pain is rated as 2/10. Notes right flank pain. Pt denies LOC, headache, fevers, chills, diaphoresis, visual changes, neck pain, chest pain, breathing difficulties, abdominal pain,L back pain, melena, hematochezia, urinary symptoms, numbness, weakness, lymphadenopathy, rash, or other complaints. ROS: See above HPI for pertinent positives & negatives. A total of 10 systems reviewed and were otherwise negative. PAST MEDICAL HISTORY:See Below , hypokalemia PAST SURGICAL HISTORY:See Below, FAMILY HISTORY:See Below SOCIAL HISTORY:See Below, no tobacco HOME MEDICATIONS:See Below ALLERGIES:See Below VITALS:See Below PHYSICAL EXAMINATION: GENERAL: Awake, alert, well-appearing, in no distress HENT: Normocephalic, atraumatic. Oropharynx unremarkable. EYES: Normal conjunctiva. Sclera non-icteric. NECK: Inspection normal. Non-tender. Supple. No nuchal rigidity. FROM. No masses. RESPIRATORY: Clear to auscultation. No wheezes. No rales. Normal respiratory effort. CARDIAC: Normal rate. Normal rhythm. No murmurs. No rubs. Extremities warm and well perfused. Pulses equal. No JVD. GI: Soft, non-distended. No tenderness to palpation. No rebound or guarding. No masses. RECTAL: Deferred. MUSCULOSKELETAL: Atraumatic. Chest examination reveals no tenderness. The back is symmetrical on inspection without obvious abnormality. There is Right CVA tenderness to palpation. No joint edema. LOWER EXTREMITIES: Calves are equal size bilaterally and non-tender. No edema. No discoloration. NEURO: Normal sensorium. No sensory or motor deficits noted. SKIN: No rash or jaundice noted. Alexy Mukherjee MD Past Med/Surg History Medical History (Updated 01/11/22 @ 21:28 by Alexy Mukherjee MD) Chronic diarrhea Deafness in right ear Epilepsy last episode 2005 > doesn't see neuro anymore, PCP manages; denies any seizure activity since 2006 Exercise-induced asthma as teenager Frequent PVCs stable per most recent S cardio note Gastric ulcer GERD (gastroesophageal reflux disease) controlled, stable per pt History of benign breast biopsy SVT (supraventricular tachycardia) metoprolol for this > follows with Randy Sanchez Tobacco abuse History -- quit 2014. Type 2 diabetes mellitus monitoring without definitive diagnosis per pt, expresses elevated A1cs were occurring at time of significant infection in past Surgical History History of anesthesia reaction aggression when coming out of anesthesia > has been told has a small airway but has never had complication with intubation History of ankle surgery Left Open Ankle Fracture Incision and Drainage, Left Open Ankle Fracture Open Reduction Internal Fixation 12/22/2019: Grade 1 view, MAC#3, ETT#7.0 atraumatic x 1. No issues per anesthesia postop progress note. Left ankle revision/autograft application 09/28/2020: LMA#4. No issues per anesthesia postop progress note. History of arthroscopy left knee x5 History of breast biopsy right > benign History of colon resection ascending -- large polyp removed during colo, but per patient caused perforation requiring ex-lap and hemicolectomy. 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 Beliefs That Will Affect Care: None marital status: / Current Living Situation: Other Current Living Situation Comment: with her child Other Information That Helps Us Care for You: No Feels Safe at Home: Yes Safety Concerns: Feels Safe At This Time Assistive Devices: Denture - Upper and Denture - Lower Allergies Allergies Allergy/AdvReac Type Severity Reaction Status Date / Time verapamil AdvReac Unknown Leg Verified 01/11/22 21:30 numbness Home Meds Home Medications Medication Instructions Recorded Confirmed lamotrigine 100 mg tablet 100 mg PO BID 02/25/19 01/11/22 (Lamictal) omeprazole 40 mg capsule,delayed 40 mg PO BID 12/22/19 01/11/22 release lactobacillus combination no.4 3 0 mmu cells PO PM 04/17/20 01/11/22 billion cell capsule (Probiotic) metoprolol succinate 50 mg See Rx Instructions .Route .COMPLEX 04/17/20 01/11/22 tablet,extended release 24 hr potassium chloride 10 mEq 10 meq PO BID 12/19/20 01/11/22 capsule,extended release sodium chloride 1 gram tablet 1 g PO DAILY 12/19/20 01/11/22 sucralfate 1 gram tablet (Carafate) 1 g PO TID 06/18/21 01/11/22 mecobalamin (vitamin B12) 1,000 1,000 mcg PO DAILY 01/11/22 01/11/22 mcg disintegrating tablet,sublingual prenat.vits,jennifer,dkn-vaij-vgzom 1 tab PO DAILY 01/11/22 01/11/22 Results & Data (ED) Vital Signs Vital Signs - 24 hr 01/11/22 19:49 01/11/22 20:59 01/11/22 20:16 Temperature 36.1 C L Temperature Source Temporal Artery Scan Pulse Rate 83 70 Pulse Rate [Finger] 73 Pulse Rhythm Regular Regular Respiratory Rate 18 18 Respiratory Effort / Characteristics Non-Labored Non-Labored Spontaneous Respiratory Depth Normal Normal Respiratory Pattern Regular Blood Pressure 110/73 Blood Pressure [Right Arm] 99/63 L Blood Pressure Mean 85 Blood Pressure Mean [Right Arm] 75 Pulse Oximetry 98 100 99 Oxygen Delivery Method Room Air Room Air Room Air Sepsis Recent Fever Within 48 Hours No Sepsis New/Unexplained Change in Mental Status N/A Sepsis Action Taken by Nursing No Action Required Laboratory Data Result diagrams: 01/11/22 20:01 01/12/22 01:04 Lab Results 01/11/22 01/11/22 01/11/22 Range/Units 20:01 20:01 20:01 WBC 9.66 (4.8-10.8) K/ul RBC 4.21 (3.93-5.22) M/uL Hgb 14.9 (12.0-16.0) g/dl Hct 39.6 (34.1-44.9) % MCV 94.1 (80.0-100.0) fL MCH 35.4 H (25.0-34.0) pg MCHC 37.6 H (32.0-36.0) g/dL RDW Std Deviation 45.3 (36.4-46.3) fL RDW Coeff of Gabriel 13.2 (11.5-14.5) % Plt Count 140 (130-400) K/uL MPV 12.7 H (9.4-12.3) fL Immature Gran % (Auto) 0.6 % Neut % (Auto) 65.3 % Lymph % (Auto) 25.1 % Sauk % (Auto) 8.0 % Eos % (Auto) 0.7 % Baso % (Auto) 0.3 % Neut # (Auto) 6.31 (1.4-6.5) K/uL Lymph # (Auto) 2.42 (1.2-3.4) K/uL Sauk # (Auto) 0.77 (0.24-0.82) K/uL Eos # (Auto) 0.07 (0-0.50) K/uL Baso # (Auto) 0.03 (0-0.2) K/uL Immature Gran # (Auto) 0.06 H (0.00-0.02) K/uL Sodium 115 L* (136-145) mmol/L Potassium 2.3 L* (3.5-5.1) mmol/L Chloride 75 L (98-107) mmol/L Carbon Dioxide 31 (21-32) mmol/L Anion Gap 9 (3-11) BUN 5 L (6-23) mg/dl Creatinine 0.86 (0.6-1.2) mg/dl Est Cr Clr Drug Dosing 64.6 ml/min Est GFR ( Amer) 90.0 ml/min Est GFR (Non-Af Amer) 77.7 ml/min BUN/Creatinine Ratio 5.8 L (10-20) Glucose 95 (70-99(Fasting)) mg/dl Osmolality (280-300) mOsm/kg Calcium 8.5 (8.5-10.1) mg/dl Magnesium 1.8 (1.7-2.4) mg/dl Total Bilirubin 1.0 (0.2-1.0) mg/dl AST 33 (13-39) U/L ALT 29 (7-52) U/L Alkaline Phosphatase 119 H (34-104) U/L Troponin I High Sens 3.3 (0-14) pg/ml Total Protein 7.1 (6.0-8.3) gm/dl Albumin 3.9 (3.4-5.0) gm/dl Globulin 3.2 (2.5-4.0) gm/dl Albumin/Globulin Ratio 1.2 (0.9-2) Lipase 35 (11-82) U/L SARS-CoV-2, RNA, NAAT (NEGATIVE) 01/11/22 01/11/22 Range/Units 20:11 21:00 WBC (4.8-10.8) K/ul RBC (3.93-5.22) M/uL Hgb (12.0-16.0) g/dl Hct (34.1-44.9) % MCV (80.0-100.0) fL MCH (25.0-34.0) pg MCHC (32.0-36.0) g/dL RDW Std Deviation (36.4-46.3) fL RDW Coeff of Gabriel (11.5-14.5) % Plt Count (130-400) K/uL MPV (9.4-12.3) fL Immature Gran % (Auto) % Neut % (Auto) % Lymph % (Auto) % Sauk % (Auto) % Eos % (Auto) % Baso % (Auto) % Neut # (Auto) (1.4-6.5) K/uL Lymph # (Auto) (1.2-3.4) K/uL Sauk # (Auto) (0.24-0.82) K/uL Eos # (Auto) (0-0.50) K/uL Baso # (Auto) (0-0.2) K/uL Immature Gran # (Auto) (0.00-0.02) K/uL Sodium (136-145) mmol/L Potassium (3.5-5.1) mmol/L Chloride (98-107) mmol/L Carbon Dioxide (21-32) mmol/L Anion Gap (3-11) BUN (6-23) mg/dl Creatinine (0.6-1.2) mg/dl Est Cr Clr Drug Dosing ml/min Est GFR ( Amer) ml/min Est GFR (Non-Af Amer) ml/min BUN/Creatinine Ratio (10-20) Glucose (70-99(Fasting)) mg/dl Osmolality 242 L (280-300) mOsm/kg Calcium (8.5-10.1) mg/dl Magnesium (1.7-2.4) mg/dl Total Bilirubin (0.2-1.0) mg/dl AST (13-39) U/L ALT (7-52) U/L Alkaline Phosphatase (34-104) U/L Troponin I High Sens (0-14) pg/ml Total Protein (6.0-8.3) gm/dl Albumin (3.4-5.0) gm/dl Globulin (2.5-4.0) gm/dl Albumin/Globulin Ratio (0.9-2) Lipase (11-82) U/L SARS-CoV-2, RNA, NAAT NEGATIVE (NEGATIVE) Administered Medications Discontinued Medications Sodium Chloride (Nss 1000ml) 1,000 mls @ 125 mls/hr IV .Q8H STA Stop: 01/12/22 03:53 Last Infusion: 01/12/22 00:56 Dose: 0 mls/hr Documented By: Admin: 01/11/22 20:47 Dose: 125 mls/hr Documented By: DEVEN Sodium Chloride (Nss) 500 mls @ 999 mls/hr IV .Q31M STA Stop: 01/11/22 20:24 Last Infusion: 01/11/22 20:48 Dose: 0 mls/hr Documented By: Admin: 01/11/22 20:18 Dose: 999 mls/hr Documented By: DEVEN Potassium Chloride (K Davin / Wtr) 10 meq in 100 mls @ 100 mls/hr IV Q1H TRISTON; Protocol Stop: 01/11/22 22:59 Last Admin: 01/12/22 00:01 Dose: Not Given Documented By: Infusion: 01/12/22 00:01 Dose: 0 mls/hr Documented By: Infusion: 01/11/22 21:03 Dose: 50 mls/hr Documented By: Admin: 01/11/22 20:55 Dose: 100 mls/hr Documented By: DEVEN Ondansetron HCl (Ondansetron Inj 2 Mg/Ml 2 Ml Vial) 4 mg IV NOW STA Stop: 01/11/22 20:02 Last Admin: 01/11/22 20:13 Dose: 4 mg Documented By: DEVEN Potassium Chloride (Potassium Chloride Crtab 20 Meq Tabcr) 40 meq PO NOW STA Stop: 01/11/22 20:52 Last Admin: 01/11/22 20:55 Dose: 40 meq Documented By: DEVEN Potassium Chloride (Potassium Chloride Crtab 20 Meq Tabcr) 20 meq PO NOW STA Stop: 01/11/22 22:48 Last Admin: 01/11/22 23:57 Dose: 20 meq Documented By: FRANCESCO Imaging Data Radiologist's Impression: Abdomen/Pelvis CT 01/11/22 20:01 CT SCAN OF THE ABDOMEN AND PELVIS WITHOUT IV CONTRAST CLINICAL HISTORY: Right flank pain. COMPARISON STUDY: Abdominal CT dated 02/07/2020. TECHNIQUE: CT scan of the abdomen and pelvis is performed from the lung bases to the proximal femora. Images are reviewed in the axial, sagittal, and coronal planes. IV contrast was not administered for this examination. A dose lowering technique was utilized adhering to the principles of ALARA. CT DOSE: 251.94 mGy.cm FINDINGS: Lung bases: The heart is normal in size and without pericardial effusion. The lung bases are clear. Liver: The unenhanced liver is normal in size, contour, and attenuation. There is no intrahepatic biliary ductal dilatation. A subcentimeter cyst in the left lobe is unchanged. Gallbladder: Surgically absent. Spleen: Normal in size and attenuation. Pancreas: Unremarkable. Adrenal glands: Unremarkable. Kidneys: The unenhanced kidneys are normal in size and without hydronephrosis. There are no renal calculi identified. There is no evidence of contour deforming renal mass lesion. Abdominal vasculature: The abdominal aorta is normal in course and caliber noting moderate to advanced atherosclerotic calcification. Bowel: There are scattered colonic diverticula without CT evidence of acute diverticulitis. No bowel obstruction is seen. The appendix is not identified and reported surgically absent. Peritoneum: There is no intraperitoneal free air or abdominal ascites. Lymphadenopathy: None. Pelvic viscera: The bladder, uterus, and adnexa are normal as visualized. Skeletal structures: The skeletal structures appear osteopenic. There is mild spondylotic change at L5-S1. No lytic or blastic lesions are seen. There are healed left anterior rib fractures. IMPRESSION: No acute infectious or inflammatory findings are identified in the abdomen or pelvis. ACT 112: Negative or not required by law. Electronically signed by: Jose Leblanc M.D. 01/11/2022 8:54 PM Discharge Plan Visit Data Chief Complaint: Recheck/Abnormal Lab/Rx Stated Complaint: ABNORMAL LABS, REF BY DR POWERS Provider: Alexy Mukherjee Discharge Problem: Acute hyponatremia, Nausea & vomiting, Acute hypokalemia, Abnormal ECG Patient Disposition: Admitted As Inpatient Discharge Instructions Interventions: ED Discharge Assessment Last Done: 01/12/22 00:06
[2022-01-11 20:49] LABS: Albumin Globulin Ratio 1.2 (0.9-2); Albumin Level 3.9 gm/dl (3.4-5.0); BUN Creatinine Ratio 5.8 (10-20); Calcium 8.5 mg/dl (8.5-10.1); Creatinine Clr Calc Pharmacy 64.6 ml/min; Est GFR (Non-African American) 77.7 ml/min; Globulin 3.2 gm/dl (2.5-4.0); Potassium 2.3 mmol/L (3.5-5.1); Total Protein 7.1 gm/dl (6.0-8.3)
[2022-01-11] MEDS ORDERED: POTASSIUM CHLORIDE CRTAB 20 MEQ TABCR PO STA ×2 (20:51→22:47)
[2022-01-11 20:54] LABS: Troponin I High Sensitivity 3.3 pg/ml (0-14)
[2022-01-11] MEDS: POTASSIUM CHLORIDE / WTR 10 MEQ/100 ML PLCT IV SCH (20:55)
--- NOTE | 2022-01-11 20:57 | CT Scan Report ---
CT SCAN OF THE ABDOMEN AND PELVIS WITHOUT IV CONTRAST CLINICAL HISTORY: Right flank pain. COMPARISON STUDY: Abdominal CT dated 02/07/2020. TECHNIQUE: CT scan of the abdomen and pelvis is performed from the lung bases to the proximal femora. Images are reviewed in the axial, sagittal, and coronal planes. IV contrast was not administered for this examination. A dose lowering technique was utilized adhering to the principles of ALARA. CT DOSE: 251.94 mGy.cm FINDINGS: Lung bases: The heart is normal in size and without pericardial effusion. The lung bases are clear. Liver: The unenhanced liver is normal in size, contour, and attenuation. There is no intrahepatic lorenzo iary ductal dilatation. A subcentimeter cyst in the left lobe is unchanged. Gallbladder: Surgically absent. Spleen: Normal in size and attenuation. Pancreas: Unremarkable. Adrenal glands: Unremarkable. Kidneys: The unenhanced kidneys are normal in size and without hydronephrosis. There are no renal jennifer culi identified. There is no evidence of contour deforming renal mass lesion. Abdominal vasculature: The abdominal aorta is normal in course and caliber noting moderate to advance d atherosclerotic calcification. Bowel: There are scattered colonic diverticula without CT evidence of acute diverticulitis. No bowel obstruction is seen. The appendix is not identified and reported surgically absent. Peritoneum: There is no intraperitoneal free air or abdominal ascites. Lymphadenopathy: None. Pelvic viscera: The bladder, uterus, and adnexa are normal as visualized. Skeletal structures: The skeletal structures appear osteopenic. There is mild spondylotic change at L 5-S1. No lytic or blastic lesions are seen. There are healed left anterior rib fractures. IMPRESSION: No acute infectious or inflammatory findings are identified in the abdomen or pelvis. ACT 112: Negative or not required by law. Electronically signed by: Jose Leblanc M.D. 01/11/2022 8:54 PM
[2022-01-11 21:28] LABS: Basophils # (auto) 0.03 K/uL (0-0.2); Basophils % (auto) 0.3 %; Eosinophils # (auto) 0.07 K/uL (0-0.50); Eosinophils % (auto) 0.7 %; Hematocrit (blood only) 39.6 % (34.1-44.9); Hemoglobin 14.9 g/dl (12.0-16.0); Immature Granulocytes # (auto) 0.06 K/uL (0.00-0.02); Immature Granulocytes % (auto) 0.6 %; Lymphocytes # (auto) 2.42 K/uL (1.2-3.4); Lymphocytes % (auto) 25.1 %; Mean Corpuscular Hemoglobin 35.4 pg (25.0-34.0); Mean Corpuscular Hgb Conc 37.6 g/dL (32.0-36.0); Mean Corpuscular Volume 94.1 fL (80.0-100.0); Mean Platelet Volume 12.7 fL (9.4-12.3); Monocytes # (auto) 0.77 K/uL (0.24-0.82); Neutrophils # (auto) 6.31 K/uL (1.4-6.5); Neutrophils % (auto) 65.3 %; Platelet Count 140 K/uL (130-400); RDW Coefficient of Variation 13.2 % (11.5-14.5); RDW Standard Deviation 45.3 fL (36.4-46.3); Red Blood Count 4.21 M/uL (3.93-5.22); White Blood Count 9.66 K/ul (4.8-10.8)
[2022-01-12] MEDS: POTASSIUM CHLORIDE / WTR 10 MEQ/100 ML PLCT IV SCH (00:01)
[2022-01-12] MEDS ORDERED: ONDANSETRON INJ 2 MG/ML 2 ML VIAL IV PRN (00:08)
[2022-01-12] MEDS ORDERED: NITROGLYCERIN SL 0.4 MG/TAB TAB SL PRN (00:08)
[2022-01-12 00:37] LABS: Appearance Urine Clear (Clear); Bilirubin Urine Negative (Negative); Blood Urine Negative (Negative); Color Urine Yellow; Glucose Urine UA Negative (Negative); Ketones Urine Negative (Negative); Leukocyte Esterase Urine Negative (Negative); Nitrite Urine Negative (Negative); Protein Urine Negative (Negative); Specific Gravity Urine 1.002 (1.000-1.030); Urobilinogen Urine Negative (Negative); pH Urine 7.5 (4.5-7.5)
--- NOTE | 2022-01-12 01:14 | History and Physical Report ---
DATE OF ADMISSION: 01/11/2022 CHIEF COMPLAINT: Nausea, vomiting, hyponatremia, hypokalemia. HISTORY OF PRESENT ILLNESS: This is a 51-year-old female with past medical history significant for cough variant asthma, frequent PVCs, history of B12 deficiency, history of seizure disorder, hearing loss, history of ankle surgery, history of recurrent periductal mastitis status post excision by surgery, history of hyponatremia and hypokalemia in the past, history of asymptomatic SVT versus atrial tachycardia, history of tobacco abuse, hyperlipidemia, who presents with nausea, vomiting going on for the last 10 days and she has chronic diarrhea. Says nausea somewhat improved today. She was able to eat something today, but as she was not feeling well, she came to the hospital and found to have a sodium of 115. She is on sodium 1 g daily and potassium supplement 10 mEq daily. Sodium was 128 on 11/27/2021 and 11/29/2021 on outpatient labs. Resting comfortably, hemodynamically stable. Denies any headache. She was feeling dizzy today. No blurred visions, no earache, no runny nose, no sore throat. No cough. She says she had COVID twice in the past and she is not vaccinated. Denies any chest pain. She has occasional cough. No shortness of breath, no abdominal pain. Has chronic diarrhea. Denies any blood in the stool or black stools. Micturating okay. No swelling in the legs. ALLERGIES: VERAPAMIL. PAST MEDICAL HISTORY: As mentioned above. PAST SURGICAL HISTORY: Bilateral alveoloplasty with extraction, right benign breast lesion excision, colonoscopy with biopsy, dental surgery, dilatation and curettage, EGDs, EGD with biopsy, exploratory laparotomy, partial cecectomy, appendectomy, cholecystectomy, removal of torus mandibularis, open removal of gallbladder, left trimalleolar ankle fracture repair. MEDICATIONS: The patient is on Lamictal 100 mg p.o. b.i.d., vitamin B12 1000 mcg p.o. daily, metoprolol succinate 75 mg in the morning and 50 mg in the night, omeprazole 40 mg p.o. b.i.d., potassium chloride 10 mEq p.o. b.i.d., prenatals 1 tablet daily, probiotic 1 tablet daily, sodium chloride 1 g p.o. daily, sucralfate 1 gram p.o. t.i.d. FAMILY HISTORY: Significant for sisters have positive history of breast cancer, father had testicular cancer, maternal grandmother had cancer, mother has heart disorder and lung disorder, sister has thyroid disorder. SOCIAL HISTORY: . Smokes 1/4 pack a day, quit in 11/2014. No alcohol use. No drug use. REVIEW OF SYSTEMS: As per HPI. Rest of the review of systems is negative. PHYSICAL EXAMINATION: GENERAL: The patient is of moderate build, not in acute distress. VITAL SIGNS: Temperature 36.1, pulse 73, respiratory rate 18, blood pressure 99/63, oxygen 100% on room air. HEENT: Pupils equal, round and reactive to light. Oral mucosa moist. NECK: No JVD, no neck masses. CARDIOVASCULAR: S1 and S2 heard. Regular rate and rhythm. No murmur, no gallop. RESPIRATORY SYSTEM: Normal AP diameter. No accessory muscle use. No wheezing, no crackles. ABDOMEN: Soft, bowel sounds present, nontender, no distention. CENTRAL NERVOUS SYSTEM: Cranial nerves II-XII grossly intact, nonfocal. EXTREMITIES: No edema, no erythema. LABORATORY DATA: WBC is 9.6, hemoglobin 14.9, hematocrit 39.6, platelets 140. Sodium 115, potassium 2.3, chloride 75, bicarbonate 21, BUN 5, creatinine 0.8, serum glucose 95, calcium 8.5, magnesium 1.8, total bilirubin 1, AST 33, ALT 29, alkaline phosphatase 119. Troponin I high sensitivity 3.3. Lipase 35. SARS-CoV-2 rapid test negative. IMAGING: CT abdomen and pelvis without contrast: No acute findings. EKG: Poor quality data. Normal sinus rhythm at a rate of 73. T-wave inversion seen in inferior lateral leads. ASSESSMENT AND PLAN: This 51-year-old female presents with ongoing nausea, vomiting and found to have hypokalemia and hyponatremia. 1. Nausea, vomiting possibly gastroenteritis. She says she is getting better. We will put on clear liquid diet for now. If she is getting worse, we will consult gastrointestinal. CT scan was okay. Continue home omeprazole 40 mg b.i.d. 2. Hyponatremia. Sodium of 115. She had a sodium of 128 last month. She is on sodium tablets 1 g daily. Discussed with nephrology, received IV NS fluids in the Emergency Room. We will stop the fluids and also she received potassium supplements in the Emergency Room. Check BMP q.4 hours starting at midnight today. Goal is to correct 6 mEq in 24 hours. If it is correcting more than 0.5 mEq every hour, we will start D5 water and titrate the fluids. We will also check serum osmolality, urine osmolality, random urine sodium levels and closely monitor. 1m labs showed Na 118 started on d5w@50ml/hr and 5am labs showed Na 122 increased d5w@100ml/hr and given a dose of desmopressin. Will follow q4hrs labs. Await nephro input in am. 3. Hypokalemia. We will replace. Correction of potassium going to help in the correction of sodium. We will follow the repeat laboratories. 4. History of seizure disorder. Continue Lamictal. 5. History of supraventricular tachycardia. Continue on metoprolol. 6. B12 deficiency. Continue supplement. 7. Gastroesophageal reflux disease. Continue omeprazole and sucralfate. 8. Deep venous thrombosis prophylaxis. Heparin subcutaneously. DISPOSITION: Closely monitor in the tele floor. Level 1, full code. Expect to discharge home and follow with family doctor. Job ID: [id number] [facility]
[2022-01-12 01:46] LABS: BUN Creatinine Ratio 5.3 (10-20); Calcium 7.6 mg/dl (8.5-10.1); Creatinine Clr Calc Pharmacy 73.8 ml/min; Est GFR (African American) 104.5 ml/min; Est GFR (Non-African American) 90.2 ml/min; Potassium 2.7 mmol/L (3.5-5.1)
[2022-01-12] MEDS: POTASSIUM CHLORIDE CRTAB 20 MEQ TABCR PO STA ×2 (02:01→03:35)
[2022-01-12] MEDS: DEXTROSE 5% 1,000 ML IV SCH ×2 (02:01→20:38)
[2022-01-12] MEDS ORDERED: POTASSIUM CHLORIDE PWD 20 MEQ PACK PO STA ×3 (02:17→17:32)
[2022-01-12 05:32] LABS: Basophils # (auto) 0.03 K/uL (0-0.2); Basophils % (auto) 0.4 %; Eosinophils # (auto) 0.13 K/uL (0-0.50); Eosinophils % (auto) 1.6 %; Hematocrit (blood only) 39.4 % (34.1-44.9); Hemoglobin 14.2 g/dl (12.0-16.0); Immature Granulocytes # (auto) 0.03 K/uL (0.00-0.02); Immature Granulocytes % (auto) 0.4 %; Lymphocytes % (auto) 28.3 %; Mean Corpuscular Hemoglobin 35.1 pg (25.0-34.0); Mean Corpuscular Volume 97.5 fL (80.0-100.0); Monocytes # (auto) 0.67 K/uL (0.24-0.82); Monocytes % (auto) 8.2 %; Neutrophils # (auto) 4.98 K/uL (1.4-6.5); Neutrophils % (auto) 61.1 %; Platelet Count 162 K/uL (130-400); RDW Coefficient of Variation 13.2 % (11.5-14.5); RDW Standard Deviation 47.7 fL (36.4-46.3); Red Blood Count 4.04 M/uL (3.93-5.22); White Blood Count 8.14 K/ul (4.8-10.8)
[2022-01-12] MEDS: HEPARIN SOD 5,000 UNIT/0.5 ML VIAL SQ SCH ×3 (05:41→21:37)
[2022-01-12 05:51] LABS: BUN Creatinine Ratio 4.1 (10-20); Creatinine Clr Calc Pharmacy 77.4 ml/min; Est GFR (African American) 109.7 ml/min; Est GFR (Non-African American) 94.7 ml/min; Potassium 3.1 mmol/L (3.5-5.1)
[2022-01-12] MEDS ORDERED: DESMOPRESSIN ACETATE 2 MCG in SODIUM CHLORIDE 0.9% 50 ML IV ONE (06:15)
[2022-01-12] MEDS: CYANOCOBALAMIN (B-12) 500 MCG TABLET PO SCH (08:01)
[2022-01-12] MEDS: lamoTRIgine 100 MG TAB PO SCH ×2 (08:02→19:55)
[2022-01-12] MEDS: METOPROLOL SUCC 50MG EXT REL TAB PO SCH ×2 (08:02→19:54)
[2022-01-12] MEDS: PANTOprazole 40 MG TAB PO SCH ×2 (08:04→19:55)
[2022-01-12] MEDS: PRENATAL VITAMIN 1 TAB PO SCH (08:05)
[2022-01-12] MEDS: SUCRALFATE 1 GM TAB PO SCH ×3 (08:05→19:54)
[2022-01-12] MEDS ORDERED: POTASSIUM CHLORIDE 10 MEQ TABCR PO SCH (09:00)
[2022-01-12 09:21] LABS: BUN Creatinine Ratio 4.3 (10-20); Calcium 7.4 mg/dl (8.5-10.1); Creatinine Clr Calc Pharmacy 80.7 ml/min; Est GFR (African American) 115.5 ml/min; Est GFR (Non-African American) 99.6 ml/min; Potassium 3.5 mmol/L (3.5-5.1)
[2022-01-12] MEDS ORDERED: POTASSIUM CHLORIDE / WTR 10 MEQ/100 ML PLCT IV ONE (10:15)
--- NOTE | 2022-01-12 10:17 | Hospitalist Progress Note ---
Date of Service January 12, 2022 Assessment & Plan (1) Nausea & vomiting: (2) Acute hyponatremia: (3) Acute hypokalemia: Plan: This 51-year-old female presents with ongoing nausea, vomiting and found to have hypokalemia and hyponatremia. 1. Nausea, vomiting possibly gastroenteritis. Pt reports getting better. lear liquid diet for now. If she is getting worse, we will consult gastrointestinal. CT abd/pelvis IMPRESSION: No acute infectious or inflammatory findings are identified in the abdomen or pelvis. Continue home omeprazole 40 mg b.i.d. 2. Hyponatremia. Sodium of 115 on admission. She had a sodium of 128 last month. She is on sodium tablets 1 g daily. Discussed with nephrology overnight, received IV NS fluids in the Emergency Room. We will stop the fluids and also she received potassium supplements in the Emergency Room. Check BMP q.4 hours started at midnight. Goal is to correct 6 mEq in 24 hours. If it is correcting more than 0.5 mEq every hour, we will start D5 water and titrate the fluids. Na 122 early AM - D5 started, desmopressin given Current Na 120 We will also check serum osmolality, urine osmolality, random urine sodium levels and closely monitor. Nephrology consulted, appreciate their input 3. Hypokalemia. We will replace. Correction of potassium going to help in the correction of sodium. We will follow the repeat laboratories. 4. History of seizure disorder. Continue Lamictal. 5. History of supraventricular tachycardia. Continue on metoprolol. 6. B12 deficiency. Continue supplement. 7. Gastroesophageal reflux disease. Continue omeprazole and sucralfate. DVT prophylaxis. Heparin subq DISPOSITION: tele floor. Code: full code. Dispo: Expect to discharge home and follow with family doctor. Admission and Anticipated Discharge Date Admission Date: January 11, 2022 Subjective Patient seen in follow-up of electrolyte abnormalities, nausea vomiting Nausea and vomiting much improved Currently laying in bed, in no acute distress Denies fevers, chills, chest pain, shortness of breath Denies abdominal pain Has chronic diarrhea Review of Systems Review of Systems: All systems reviewed & are unremarkable except as noted in Subjective Physical Exam Physical Exam: GENERAL: The patient is of moderate build, not in acute distress. HEENT: NC/AT. EOMI. Pupils equal, round and reactive to light. Oral mucosa moist. NECK: No JVD, no neck masses. CARDIOVASCULAR: S1 and S2 heard. Regular rate and rhythm. No murmur, no gallop. RESPIRATORY SYSTEM: Normal AP diameter. No accessory muscle use. No wheezing, no crackles. ABDOMEN: Soft, bowel sounds present, nontender, no distention. NEURO: Alert oriented, answering questions appropriately, no facial symmetry, moves extremities EXTREMITIES: No edema, no erythema. Results & Data Results & Data ([facility]) Vital Signs (Past 12 Hours) Vital Signs Temp Pulse Pulse Resp BP Pulse Ox O2 Del Method 01/12/22 07:33 36.6 C 65 19 97/63 L 98 Room Air 01/11/22 23:00 66 01/12/22 00:08 36.8 C 65 18 108/67 100 Room Air 01/12/22 00:01 66 12 106/64 96 Room Air 01/11/22 22:38 71 18 99 Room Air Laboratory Results 01/12/22 01/12/22 01/12/22 Range/Units Unknown 08:48 07:33 WBC (4.8-10.8) K/ul RBC (3.93-5.22) M/uL Hgb (12.0-16.0) g/dl Hct (34.1-44.9) % MCV (80.0-100.0) fL MCH (25.0-34.0) pg MCHC (32.0-36.0) g/dL RDW Std Deviation (36.4-46.3) fL RDW Coeff of Gabriel (11.5-14.5) % Plt Count (130-400) K/uL MPV (9.4-12.3) fL Immature Gran % (Auto) % Neut % (Auto) % Lymph % (Auto) % [place] % (Auto) % Eos % (Auto) % Baso % (Auto) % Neut # (Auto) (1.4-6.5) K/uL Lymph # (Auto) (1.2-3.4) K/uL [place] # (Auto) (0.24-0.82) K/uL Eos # (Auto) (0-0.50) K/uL Baso # (Auto) (0-0.2) K/uL Immature Gran # (Auto) (0.00-0.02) K/uL Sodium 120 L (136-145) mmol/L Potassium 3.5 (3.5-5.1) mmol/L Chloride 89 L (98-107) mmol/L Carbon Dioxide 25 (21-32) mmol/L Anion Gap 6 (3-11) BUN 3 L (6-23) mg/dl Creatinine 0.70 (0.6-1.2) mg/dl Est Cr Clr Drug Dosing 80.7 ml/min Est GFR ( Amer) 115.5 ml/min Est GFR (Non-Af Amer) 99.6 ml/min BUN/Creatinine Ratio 4.3 L (10-20) Glucose 184 H (70-99(Fasting)) mg/dl POC Glucose 106 H (70-99) mg/dl Osmolality (280-300) mOsm/kg Calcium 7.4 L (8.5-10.1) mg/dl Magnesium (1.7-2.4) mg/dl Total Bilirubin (0.2-1.0) mg/dl AST (13-39) U/L ALT (7-52) U/L Alkaline Phosphatase (34-104) U/L Troponin I High Sens (0-14) pg/ml Total Protein (6.0-8.3) gm/dl Albumin (3.4-5.0) gm/dl Globulin (2.5-4.0) gm/dl Albumin/Globulin Ratio (0.9-2) Lipase (11-82) U/L Urine Color Yellow Urine Appearance Clear (Clear) Urine pH 7.5 (4.5-7.5) Ur Specific [place] 1.002 (1.000-1.030) Urine Protein Negative (Negative) Urine Glucose (UA) Negative (Negative) Urine Ketones Negative (Negative) Urine Blood Negative (Negative) Urine Nitrite Negative (Negative) Urine Bilirubin Negative (Negative) Urine Urobilinogen Negative (Negative) Ur Leukocyte Esterase Negative (Negative) Urine Osmolality (500-800) mOsm/kg Ur Random Sodium mmol/L SARS-CoV-2, RNA, NAAT (NEGATIVE) 01/12/22 01/12/22 01/12/22 Range/Units 05:20 05:20 01:23 WBC 8.14 (4.8-10.8) K/ul RBC 4.04 (3.93-5.22) M/uL Hgb 14.2 (12.0-16.0) g/dl Hct 39.4 (34.1-44.9) % MCV 97.5 (80.0-100.0) fL MCH 35.1 H (25.0-34.0) pg MCHC 36.0 (32.0-36.0) g/dL RDW Std Deviation 47.7 H (36.4-46.3) fL RDW Coeff of Gabriel 13.2 (11.5-14.5) % Plt Count 162 (130-400) K/uL MPV 11.0 (9.4-12.3) fL Immature Gran % (Auto) 0.4 % Neut % (Auto) 61.1 % Lymph % (Auto) 28.3 % [place] % (Auto) 8.2 % Eos % (Auto) 1.6 % Baso % (Auto) 0.4 % Neut # (Auto) 4.98 (1.4-6.5) K/uL Lymph # (Auto) 2.30 (1.2-3.4) K/uL [place] # (Auto) 0.67 (0.24-0.82) K/uL Eos # (Auto) 0.13 (0-0.50) K/uL Baso # (Auto) 0.03 (0-0.2) K/uL Immature Gran # (Auto) 0.03 H (0.00-0.02) K/uL Sodium 122 L (136-145) mmol/L Potassium 3.1 L (3.5-5.1) mmol/L Chloride 86 L (98-107) mmol/L Carbon Dioxide 30 (21-32) mmol/L Anion Gap 6 (3-11) BUN 3 L (6-23) mg/dl Creatinine 0.73 (0.6-1.2) mg/dl Est Cr Clr Drug Dosing 77.4 ml/min Est GFR ( Amer) 109.7 ml/min Est GFR (Non-Af Amer) 94.7 ml/min BUN/Creatinine Ratio 4.1 L (10-20) Glucose 92 (70-99(Fasting)) mg/dl POC Glucose (70-99) mg/dl Osmolality (280-300) mOsm/kg Calcium 8.0 L (8.5-10.1) mg/dl Magnesium 2.0 (1.7-2.4) mg/dl Total Bilirubin (0.2-1.0) mg/dl AST (13-39) U/L ALT (7-52) U/L Alkaline Phosphatase (34-104) U/L Troponin I High Sens (0-14) pg/ml Total Protein (6.0-8.3) gm/dl Albumin (3.4-5.0) gm/dl Globulin (2.5-4.0) gm/dl Albumin/Globulin Ratio (0.9-2) Lipase (11-82) U/L Urine Color Urine Appearance (Clear) Urine pH (4.5-7.5) Ur Specific [place] (1.000-1.030) Urine Protein (Negative) Urine Glucose (UA) (Negative) Urine Ketones (Negative) Urine Blood (Negative) Urine Nitrite (Negative) Urine Bilirubin (Negative) Urine Urobilinogen (Negative) Ur Leukocyte Esterase (Negative) Urine Osmolality (500-800) mOsm/kg Ur Random Sodium 13 mmol/L SARS-CoV-2, RNA, NAAT (NEGATIVE) 01/12/22 01/12/22 01/12/22 Range/Units 01:23 01:04 00:49 WBC (4.8-10.8) K/ul RBC (3.93-5.22) M/uL Hgb (12.0-16.0) g/dl Hct (34.1-44.9) % MCV (80.0-100.0) fL MCH (25.0-34.0) pg MCHC (32.0-36.0) g/dL RDW Std Deviation (36.4-46.3) fL RDW Coeff of Gabriel (11.5-14.5) % Plt Count (130-400) K/uL MPV (9.4-12.3) fL Immature Gran % (Auto) % Neut % (Auto) % Lymph % (Auto) % [place] % (Auto) % Eos % (Auto) % Baso % (Auto) % Neut # (Auto) (1.4-6.5) K/uL Lymph # (Auto) (1.2-3.4) K/uL [place] # (Auto) (0.24-0.82) K/uL Eos # (Auto) (0-0.50) K/uL Baso # (Auto) (0-0.2) K/uL Immature Gran # (Auto) (0.00-0.02) K/uL Sodium 118 L* (136-145) mmol/L Potassium 2.7 L (3.5-5.1) mmol/L Chloride 82 L (98-107) mmol/L Carbon Dioxide 30 (21-32) mmol/L Anion Gap 6 (3-11) BUN 4 L (6-23) mg/dl Creatinine 0.76 (0.6-1.2) mg/dl Est Cr Clr Drug Dosing 73.8 ml/min Est GFR ( Amer) 104.5 ml/min Est GFR (Non-Af Amer) 90.2 ml/min BUN/Creatinine Ratio 5.3 L (10-20) Glucose 92 (70-99(Fasting)) mg/dl POC Glucose 96 (70-99) mg/dl Osmolality (280-300) mOsm/kg Calcium 7.6 L (8.5-10.1) mg/dl Magnesium (1.7-2.4) mg/dl Total Bilirubin (0.2-1.0) mg/dl AST (13-39) U/L ALT (7-52) U/L Alkaline Phosphatase (34-104) U/L Troponin I High Sens (0-14) pg/ml Total Protein (6.0-8.3) gm/dl Albumin (3.4-5.0) gm/dl Globulin (2.5-4.0) gm/dl Albumin/Globulin Ratio (0.9-2) Lipase (11-82) U/L Urine Color Urine Appearance (Clear) Urine pH (4.5-7.5) Ur Specific [place] (1.000-1.030) Urine Protein (Negative) Urine Glucose (UA) (Negative) Urine Ketones (Negative) Urine Blood (Negative) Urine Nitrite (Negative) Urine Bilirubin (Negative) Urine Urobilinogen (Negative) Ur Leukocyte Esterase (Negative) Urine Osmolality 54 L (500-800) mOsm/kg Ur Random Sodium mmol/L SARS-CoV-2, RNA, NAAT (NEGATIVE) 01/11/22 01/11/22 01/11/22 Range/Units 21:00 20:11 20:01 WBC (4.8-10.8) K/ul RBC (3.93-5.22) M/uL Hgb (12.0-16.0) g/dl Hct (34.1-44.9) % MCV (80.0-100.0) fL MCH (25.0-34.0) pg MCHC (32.0-36.0) g/dL RDW Std Deviation (36.4-46.3) fL RDW Coeff of Gabriel (11.5-14.5) % Plt Count (130-400) K/uL MPV (9.4-12.3) fL Immature Gran % (Auto) % Neut % (Auto) % Lymph % (Auto) % [place] % (Auto) % Eos % (Auto) % Baso % (Auto) % Neut # (Auto) (1.4-6.5) K/uL Lymph # (Auto) (1.2-3.4) K/uL [place] # (Auto) (0.24-0.82) K/uL Eos # (Auto) (0-0.50) K/uL Baso # (Auto) (0-0.2) K/uL Immature Gran # (Auto) (0.00-0.02) K/uL Sodium (136-145) mmol/L Potassium (3.5-5.1) mmol/L Chloride (98-107) mmol/L Carbon Dioxide (21-32) mmol/L Anion Gap (3-11) BUN (6-23) mg/dl Creatinine (0.6-1.2) mg/dl Est Cr Clr Drug Dosing ml/min Est GFR ( Amer) ml/min Est GFR (Non-Af Amer) ml/min BUN/Creatinine Ratio (10-20) Glucose (70-99(Fasting)) mg/dl POC Glucose (70-99) mg/dl Osmolality 242 L (280-300) mOsm/kg Calcium (8.5-10.1) mg/dl Magnesium 1.8 (1.7-2.4) mg/dl Total Bilirubin (0.2-1.0) mg/dl AST (13-39) U/L ALT (7-52) U/L Alkaline Phosphatase (34-104) U/L Troponin I High Sens (0-14) pg/ml Total Protein (6.0-8.3) gm/dl Albumin (3.4-5.0) gm/dl Globulin (2.5-4.0) gm/dl Albumin/Globulin Ratio (0.9-2) Lipase (11-82) U/L Urine Color Urine Appearance (Clear) Urine pH (4.5-7.5) Ur Specific [place] (1.000-1.030) Urine Protein (Negative) Urine Glucose (UA) (Negative) Urine Ketones (Negative) Urine Blood (Negative) Urine Nitrite (Negative) Urine Bilirubin (Negative) Urine Urobilinogen (Negative) Ur Leukocyte Esterase (Negative) Urine Osmolality (500-800) mOsm/kg Ur Random Sodium mmol/L SARS-CoV-2, RNA, NAAT NEGATIVE (NEGATIVE) 01/11/22 01/11/22 Range/Units 20:01 20:01 WBC 9.66 (4.8-10.8) K/ul RBC 4.21 (3.93-5.22) M/uL Hgb 14.9 (12.0-16.0) g/dl Hct 39.6 (34.1-44.9) % MCV 94.1 (80.0-100.0) fL MCH 35.4 H (25.0-34.0) pg MCHC 37.6 H (32.0-36.0) g/dL RDW Std Deviation 45.3 (36.4-46.3) fL RDW Coeff of Gabriel 13.2 (11.5-14.5) % Plt Count 140 (130-400) K/uL MPV 12.7 H (9.4-12.3) fL Immature Gran % (Auto) 0.6 % Neut % (Auto) 65.3 % Lymph % (Auto) 25.1 % [place] % (Auto) 8.0 % Eos % (Auto) 0.7 % Baso % (Auto) 0.3 % Neut # (Auto) 6.31 (1.4-6.5) K/uL Lymph # (Auto) 2.42 (1.2-3.4) K/uL [place] # (Auto) 0.77 (0.24-0.82) K/uL Eos # (Auto) 0.07 (0-0.50) K/uL Baso # (Auto) 0.03 (0-0.2) K/uL Immature Gran # (Auto) 0.06 H (0.00-0.02) K/uL Sodium 115 L* (136-145) mmol/L Potassium 2.3 L* (3.5-5.1) mmol/L Chloride 75 L (98-107) mmol/L Carbon Dioxide 31 (21-32) mmol/L Anion Gap 9 (3-11) BUN 5 L (6-23) mg/dl Creatinine 0.86 (0.6-1.2) mg/dl Est Cr Clr Drug Dosing 64.6 ml/min Est GFR ( Amer) 90.0 ml/min Est GFR (Non-Af Amer) 77.7 ml/min BUN/Creatinine Ratio 5.8 L (10-20) Glucose 95 (70-99(Fasting)) mg/dl POC Glucose (70-99) mg/dl Osmolality (280-300) mOsm/kg Calcium 8.5 (8.5-10.1) mg/dl Magnesium (1.7-2.4) mg/dl Total Bilirubin 1.0 (0.2-1.0) mg/dl AST 33 (13-39) U/L ALT 29 (7-52) U/L Alkaline Phosphatase 119 H (34-104) U/L Troponin I High Sens 3.3 (0-14) pg/ml Total Protein 7.1 (6.0-8.3) gm/dl Albumin 3.9 (3.4-5.0) gm/dl Globulin 3.2 (2.5-4.0) gm/dl Albumin/Globulin Ratio 1.2 (0.9-2) Lipase 35 (11-82) U/L Urine Color Urine Appearance (Clear) Urine pH (4.5-7.5) Ur Specific [place] (1.000-1.030) Urine Protein (Negative) Urine Glucose (UA) (Negative) Urine Ketones (Negative) Urine Blood (Negative) Urine Nitrite (Negative) Urine Bilirubin (Negative) Urine Urobilinogen (Negative) Ur Leukocyte Esterase (Negative) Urine Osmolality (500-800) mOsm/kg Ur Random Sodium mmol/L SARS-CoV-2, RNA, NAAT (NEGATIVE) Medications Administered Current Inpatient Medications Acetaminophen (Acetaminophen 325 Mg Tab) 650 mg PO Q4H PRN PRN Reason: Pain or Fever Stop: 02/11/22 00:07 Cyanocobalamin (Cyanocobalamin (B-12) 500 Mcg Tablet) 1,000 mcg PO DAILY TRISTON Stop: 02/11/22 08:59 Last Admin: 01/12/22 08:01 Dose: 1,000 mcg Heparin Sodium (Porcine) (Heparin Sod 5,000 Unit/0.5 Ml Vial) 5,000 units SQ Q8 TRISTON Stop: 02/11/22 05:59 Last Admin: 01/12/22 05:41 Dose: 5,000 units Dextrose (D5w) 1,000 mls @ 100 mls/hr IV .Q10H TRISTON Stop: 02/11/22 01:59 Last Admin: 01/12/22 02:01 Dose: 50 mls/hr Potassium Chloride (K Davin / Wtr) 10 meq in 100 mls @ 100 mls/hr IV ONE ONE; Protocol Stop: 01/12/22 11:07 Lactobacillus Acidophilus (Advanced Probiotic 1250 Mg Capsule) 2 cap PO PM TRISTON Stop: 02/11/22 20:59 Lamotrigine (Lamotrigine 100 Mg Tab) 100 mg PO BID TRISTON Stop: 02/11/22 08:59 Last Admin: 01/12/22 08:02 Dose: 100 mg Metoprolol Succinate (Metoprolol Succ 50mg Ext Rel Tab) 50 mg PO PM TRISTON Stop: 02/11/22 20:59 Metoprolol Succinate (Metoprolol Succ 50mg Ext Rel Tab) 75 mg PO QAM TRISTON Stop: 02/11/22 08:59 Last Admin: 01/12/22 08:02 Dose: 75 mg Nitroglycerin (Nitroglycerin Sl 0.4 Mg/Tab Tab) 0.4 mg SL UD PRN PRN Reason: Chest Pain Stop: 02/11/22 00:07 Ondansetron HCl (Ondansetron Inj 2 Mg/Ml 2 Ml Vial) 4 mg IV Q6H PRN PRN Reason: Nausea Stop: 02/11/22 00:07 Last Admin: 01/12/22 02:25 Dose: 4 mg Pantoprazole Sodium (Pantoprazole 40 Mg Tab) 40 mg PO BID TRISTON Stop: 02/11/22 08:59 Last Admin: 01/12/22 08:04 Dose: 40 mg Potassium Chloride (Potassium Chloride 10 Meq Tabcr) 10 meq PO BID TRISTON Stop: 02/11/22 08:59 Last Admin: 01/12/22 08:05 Dose: 10 meq Potassium Chloride (Potassium Chloride Pwd 20 Meq Pack) 20 meq PO QAM TRISTON Stop: 02/11/22 10:14 Prenat Multivit/Zinc Furnace Charger/Iron/Folic Ac ( Vitamin 1 Tab) 1 tab PO DAILY TRISTON Stop: 02/11/22 08:59 Last Admin: 01/12/22 08:05 Dose: 1 tab Sucralfate (Sucralfate 1 Gm Tab) 1 gm PO TID TRISTON Stop: 02/11/22 08:59 Last Admin: 01/12/22 08:05 Dose: 1 gm
[2022-01-12] MEDS ORDERED: POTASSIUM CHLORIDE PWD 20 MEQ PACK PO SCH ×2 (10:30→21:00)
--- NOTE | 2022-01-12 11:08 | Nephrology Consultation ---
Date of Consultation January 12, 2022 Assessment & Plan (1) Acute hyponatremia: She was admitted with sodium of 115. -Likely hypovolemic hypoosmolar hyponatremia, urine osmolality is also very low reflecting poor solute intake. -She received IV fluid in the ER, since then she has been on D5W and received 1 dose of desmopressin to prevent overcorrection. Present rate of correction is acceptable. -Target sodium is 121 until 8 PM today,-132 until 8 PM tomorrow. - 4 hrly sodium. - Maintain eukalemia - d5 was stopped, restart ay 100 and wait for the next na -Start on 1 g twice daily salt tablets once her sodium reaches 130. (2) Nausea & vomiting: History of Present Illness Reason for Consultation: Hyponatremia Attending Physician: Zaheer Mccabe MD History of Present Illness 51-year-old female with history of chronic diarrhea who presented with nausea, vomiting which has been going on for the last 10 days, with minimal oral intake during this period. ER labs were significant for a sodium of 115, sodium was 128 on 11/27/2021 she has been on 1 g daily sodium with 10 mEq of potassium supplements. Past medical history significant for cough variant asthma, frequent PVCs, history of B12 deficiency, history of seizure disorder, hearing loss, history of ankle surgery, history of recurrent periductal mastitis status post excision by surgery, history of hyponatremia and hypokalemia in the past(on 1 g salt and 10 mEq of potassium) history of asymptomatic SVT versus atrial tachycardia, history of tobacco abuse,, she received of normal saline in the ER. In order to prevent overcorrection she was placed on D5W and received 1 dose of desmopressin. Allergies Allergy/AdvReac Type Severity Reaction Status Date / Time verapamil AdvReac Unknown Leg Verified 01/11/22 21:30 numbness Home Medications Medication Instructions Recorded Confirmed Type lamotrigine 100 mg tablet 100 mg PO BID 02/25/19 01/11/22 History (Lamictal) omeprazole 40 mg capsule,delayed 40 mg PO BID 12/22/19 01/11/22 History release lactobacillus combination no.4 3 0 mmu cells PO PM 04/17/20 01/11/22 History billion cell capsule (Probiotic) metoprolol succinate 50 mg See Rx Instructions .Route .COMPLEX 04/17/20 01/11/22 History tablet,extended release 24 hr potassium chloride 10 mEq 10 meq PO BID 12/19/20 01/11/22 History capsule,extended release sodium chloride 1 gram tablet 1 g PO DAILY 12/19/20 01/11/22 History sucralfate 1 gram tablet (Carafate) 1 g PO TID 06/18/21 01/11/22 History mecobalamin (vitamin B12) 1,000 1,000 mcg PO DAILY 01/11/22 01/11/22 History mcg disintegrating tablet,sublingual prenat.vits,jennifer,[id number] 1 tab PO DAILY 01/11/22 01/11/22 History Patient History Medical History (Updated 01/11/22 @ 21:28 by Alexy Mukherjee MD) Chronic diarrhea Deafness in right ear Epilepsy last episode 2005 > doesn't see neuro anymore, PCP manages; denies any seizure activity since 2005 Exercise-induced asthma as teenager Frequent PVCs stable per most recent [facility] cardio note Gastric ulcer GERD (gastroesophageal reflux disease) controlled, stable per pt History of benign breast biopsy SVT (supraventricular tachycardia) metoprolol for this > follows with Randy Sanchez Tobacco abuse History -- quit 2014. Type 2 diabetes mellitus monitoring without definitive diagnosis per pt, expresses elevated A1cs were occurring at time of significant infection in past Surgical History History of anesthesia reaction aggression when coming out of anesthesia > has been told has a small airway but has never had complication with intubation History of ankle surgery Left Open Ankle Fracture Incision and Drainage, Left Open Ankle Fracture Open Reduction Internal Fixation 12/22/2019: Grade 1 view, MAC#3, ETT#7.0 atraumatic x 1. No issues per anesthesia postop progress note. Left ankle revision/autograft application 09/28/2020: LMA#4. No issues per anesthesia postop progress note. History of arthroscopy left knee x5 History of breast biopsy right > benign History of colon resection ascending -- large polyp removed during colo, but per patient caused perforation requiring ex-lap and hemicolectomy. History of colonoscopy History of dilatation and curettage several History of esophagogastroduodenoscopy (EGD) History of tooth extraction Hx of appendectomy Hx of cholecystectomy Hx of external ear surgery as kid S/P ACL repair left knee Family History Uncle Colon cancer Other No family history of adverse response to anesthesia Social History Smoking Status: Never smoker Tobacco Type: Cigarettes Second Hand Exposure: Yes; Hx Alcohol Use: No Hx Substance Use: No Preferred Language: Greenlandic Communication Ability: Effective Spanish Lecturer Required: No Beliefs That Will Affect Care: None marital status: / Current Living Situation: Other Current Living Situation Comment: with her child Other Information That Helps Us Care for You: No Feels Safe at Home: No Is there a partner from a previous relationship who is making you feel unsafe now?: No Any Concerns about Your Family Situation: No Would You Like to Speak to Someone About Your Situation: No Safety Concerns: Feels Safe At This Time Assistive Devices: Cane Review of Systems Review of Systems: Resting comfortably alert oriented No shortness of breath No pedal edema Physical Exam Physical Exam: GENERAL: The patient is of moderate build, not in acute distress. HEENT: NC/AT. EOMI. Pupils equal, round and reactive to light. Oral mucosa moist. NECK: No JVD, no neck masses. CARDIOVASCULAR: S1 and S2 heard. Regular rate and rhythm. No murmur, no gallop. RESPIRATORY SYSTEM: Normal AP diameter. No accessory muscle use. No wheezing, no crackles. ABDOMEN: Soft, bowel sounds present, nontender, no distention. NEURO: Alert oriented, answering questions appropriately, no facial symmetry, moves extremities EXTREMITIES: No edema, no erythema Results & Data ([facility]) Vital Signs (Past 12 Hours) Vital Signs Temp Pulse Resp BP Pulse Ox O2 Del Method 01/12/22 07:33 36.6 C 65 19 97/63 L 98 Room Air 01/12/22 00:08 36.8 C 65 18 108/67 100 Room Air 01/12/22 00:01 66 12 106/64 96 Room Air Laboratory Results 01/12/22 05:20 01/12/22 08:48
--- NOTE | 2022-01-12 11:44 | Electrocardiogram Report ---
Test Reason : Blood Pressure : / mmHG Vent. Rate : 073 BPM Atrial Rate : 073 BPM P-R Int : 184 ms QRS Dur : 078 ms QT Int : 418 ms P-R-T Axes : 068 066 -64 degrees QTc Int : 460 ms Poor data quality, interpretation may be adversely affected Normal sinus rhythm Abnormal ECG When compared with ECG of 19-DEC-2020 16:26, T wave inversion more evident in Inferior leads ST depression and T wave inversion now evident in Lateral leads Confirmed by Sumit Hughes ([id number]) on 01/12/2022 11:44:15 AM Referred By: REFERRED SELF Confirmed By:Sumit Hughes
--- NOTE | 2022-01-12 11:59 | Electrocardiogram Report ---
Test Reason : Blood Pressure : / mmHG Vent. Rate : 059 BPM Atrial Rate : 059 BPM P-R Int : 172 ms QRS Dur : 084 ms QT Int : 502 ms P-R-T Axes : 052 054 -19 degrees QTc Int : 496 ms Sinus bradycardia T wave abnormality, consider inferior ischemia ST and T wave abnormality, consider anterior ischemia Prolonged QT Abnormal ECG When compared with ECG of 11-JAN-2022 20:08, (unconfirmed) the ST/T changes are less pronounced Confirmed by Sumit Hughes ([id number]) on 01/12/2022 11:58:41 AM Referred By: REFERRED SELF Confirmed By:Sumit Hughes
[2022-01-12 12:08] LABS: Magnesium 1.7 mg/dl (1.7-2.4); Phosphorus 2.1 mg/dl (2.5-4.9)
[2022-01-12 13:52] LABS: BUN Creatinine Ratio 4.4 (10-20); Calcium 7.3 mg/dl (8.5-10.1); Creatinine Clr Calc Pharmacy 83.1 ml/min; Est GFR (African American) 116.6 ml/min; Est GFR (Non-African American) 100.6 ml/min; Potassium 3.9 mmol/L (3.5-5.1)
[2022-01-12] MEDS ORDERED: SODIUM CHLORIDE 0.9% 1000ML 500 ML IV ONE (14:08)
[2022-01-12] MEDS ORDERED: SODIUM CHLORIDE 0.9% 1000ML 1,000 ML IV ONE (14:10)
[2022-01-12 17:25] LABS: BUN Creatinine Ratio 5.4 (10-20); Calcium 7.1 mg/dl (8.5-10.1); Creatinine Clr Calc Pharmacy 100.9 ml/min; Est GFR (African American) 124.2 ml/min; Est GFR (Non-African American) 107.2 ml/min; Potassium 3.3 mmol/L (3.5-5.1)
[2022-01-12] MEDS: ADVANCED PROBIOTIC 1250 MG CAPSULE PO SCH (19:54)
[2022-01-12] MEDS ORDERED: Nursing to Pharmacy Communication SCH (20:15)
[2022-01-12 21:18] LABS: BUN Creatinine Ratio 4.1 (10-20); Calcium 7.2 mg/dl (8.5-10.1); Creatinine Clr Calc Pharmacy 76.4 ml/min; Est GFR (Non-African American) 93.1 ml/min
[2022-01-12] MEDS ORDERED: FUROSEMIDE INJ 20 MG/2 ML VIAL IV ONE (21:39)
[2022-01-12] MEDS ORDERED: SODIUM CHLORIDE 0.9% 1000ML 1,000 ML IV SCH (21:45)
[2022-01-13] MEDS: HEPARIN SOD 5,000 UNIT/0.5 ML VIAL SQ SCH ×3 (05:20→22:38)
[2022-01-13 07:53] LABS: BUN Creatinine Ratio 3.4 (10-20); Calcium 7.5 mg/dl (8.5-10.1); Creatinine Clr Calc Pharmacy 93.1 ml/min; Est GFR (African American) 122.8 ml/min; Magnesium 1.6 mg/dl (1.7-2.4); Phosphorus 2.3 mg/dl (2.5-4.9); Potassium 3.3 mmol/L (3.5-5.1)
[2022-01-13] MEDS: CYANOCOBALAMIN (B-12) 500 MCG TABLET PO SCH (08:04)
[2022-01-13] MEDS: SUCRALFATE 1 GM TAB PO SCH ×3 (08:04→20:21)
[2022-01-13] MEDS: lamoTRIgine 100 MG TAB PO SCH ×2 (08:05→20:18)
[2022-01-13] MEDS: PRENATAL VITAMIN 1 TAB PO SCH (08:05)
[2022-01-13] MEDS: PANTOprazole 40 MG TAB PO SCH ×2 (08:05→20:19)
[2022-01-13] MEDS: METOPROLOL SUCC 50MG EXT REL TAB PO SCH ×2 (08:06→20:18)
[2022-01-13 10:02] LABS: BUN Creatinine Ratio 2.9 (10-20); Calcium 7.7 mg/dl (8.5-10.1); Creatinine Clr Calc Pharmacy 78.3 ml/min; Est GFR (Non-African American) 100.1 ml/min; Potassium 3.4 mmol/L (3.5-5.1)
[2022-01-13] MEDS ORDERED: POTASSIUM CHLORIDE PWD 20 MEQ PACK PO ONE (10:46)
--- NOTE | 2022-01-13 11:22 | Hospitalist Progress Note ---
Date of Service January 13, 2022 Assessment & Plan (1) Nausea & vomiting: (2) Acute hyponatremia: (3) Acute hypokalemia: Plan: This 51-year-old female presents with ongoing nausea, vomiting and found to have hypokalemia and hyponatremia. 1. Nausea, vomiting possibly gastroenteritis. n/v resolved She is tolerating diet CT abd/pelvis IMPRESSION: No acute infectious or inflammatory findings are identified in the abdomen or pelvis. Continue home omeprazole 40 mg b.i.d. 2. Hyponatremia. Sodium of 115 on admission. She had a sodium of 128 last month. She is on sodium tablets 1 g daily. Discussed with nephrology overnight, received IV NS fluids in the Emergency Room. Check BMP q.4 hours started. Goal is to correct 6 mEq in 24 hours. If it is correcting more than 0.5 mEq every hour, we will start D5 water and titrate the fluids. Na 122 early AM 01/12 - D5 started, desmopressin given 01/12 - pt received NS and also lasix overnight Current Na 118 (01/13 AM) We will also check serum osmolality, urine osmolality, random urine sodium levels and closely monitor. Nephrology consulted, appreciate their input 3. Hypokalemia. replace and monitor. Correction of potassium going to help in the correction of sodium. 4. History of seizure disorder. Continue Lamictal. 5. History of supraventricular tachycardia. Continue on metoprolol. 6. B12 deficiency. Continue supplement. 7. Gastroesophageal reflux disease. Continue omeprazole and sucralfate. DVT prophylaxis. Heparin subq DISPOSITION: tele floor. Code: full code. Dispo: Expect to discharge home and follow with family doctor. Admission and Anticipated Discharge Date Admission Date: January 11, 2022 Subjective Patient seen in follow-up of electrolyte abnormalities, nausea vomiting Nausea and vomiting resolved, patient is now tolerating diet Currently laying in bed, in no acute distress Denies fevers, chills, chest pain, shortness of breath Denies abdominal pain Has chronic diarrhea Review of Systems Review of Systems: All systems reviewed & are unremarkable except as noted in Subjective Physical Exam Physical Exam: GENERAL: The patient is of moderate build, not in acute distress. HEENT: NC/AT. EOMI. Pupils equal, round and reactive to light. Oral mucosa moist. NECK: No JVD, no neck masses. CARDIOVASCULAR: S1 and S2 heard. Regular rate and rhythm. No murmur, no gallop. RESPIRATORY SYSTEM: Normal AP diameter. No accessory muscle use. No wheezing, no crackles. ABDOMEN: Soft, bowel sounds present, nontender, no distention. NEURO: Alert oriented, answering questions appropriately, no facial symmetry, moves extremities EXTREMITIES: No edema, no erythema. Results & Data Results & Data ([facility]) Vital Signs (Past 12 Hours) Vital Signs Temp Pulse Resp BP Pulse Ox O2 Del Method 01/13/22 08:40 36.8 C 63 18 111/77 100 Room Air 01/13/22 08:14 66 110/76 01/13/22 03:54 36.5 C 66 16 91/64 L 96 Room Air 01/12/22 23:44 36.7 C 72 16 105/73 100 Room Air Laboratory Results 01/13/22 01/13/22 01/12/22 Range/Units 09:21 06:15 20:32 Sodium 118 L* 118 L* 114 L* (136-145) mmol/L Potassium 3.4 L 3.3 L D 5.0 D (3.5-5.1) mmol/L Chloride 91 L 90 L 89 L (98-107) mmol/L Carbon Dioxide 20 L 23 23 (21-32) mmol/L Anion Gap 7 5 2 L (3-11) BUN 2 L 2 L 3 L (6-23) mg/dl Creatinine 0.69 0.58 L 0.74 (0.6-1.2) mg/dl Est Cr Clr Drug Dosing 78.3 93.1 76.4 ml/min Est GFR ( Amer) 116.0 122.8 108.0 ml/min Est GFR (Non-Af Amer) 100.1 106.0 93.1 ml/min BUN/Creatinine Ratio 2.9 L 3.4 L 4.1 L (10-20) Glucose 113 H 87 109 H (70-99(Fasting)) mg/dl Calcium 7.7 L 7.5 L 7.2 L (8.5-10.1) mg/dl Phosphorus 2.3 L (2.5-4.9) mg/dl Magnesium 1.6 L (1.7-2.4) mg/dl 01/12/22 01/12/22 01/12/22 Range/Units 16:46 12:56 11:35 Sodium 117 L* 115 L* (136-145) mmol/L Potassium 3.3 L 3.9 (3.5-5.1) mmol/L Chloride 90 L 88 L (98-107) mmol/L Carbon Dioxide 21 21 (21-32) mmol/L Anion Gap 6 6 (3-11) BUN 3 L 3 L (6-23) mg/dl Creatinine 0.56 L 0.68 (0.6-1.2) mg/dl Est Cr Clr Drug Dosing 100.9 83.1 ml/min Est GFR ( Amer) 124.2 116.6 ml/min Est GFR (Non-Af Amer) 107.2 100.6 ml/min BUN/Creatinine Ratio 5.4 L 4.4 L (10-20) Glucose 134 H 193 H (70-99(Fasting)) mg/dl Calcium 7.1 L 7.3 L (8.5-10.1) mg/dl Phosphorus 2.1 L (2.5-4.9) mg/dl Magnesium 1.7 (1.7-2.4) mg/dl Medications Administered Current Inpatient Medications Acetaminophen (Acetaminophen 325 Mg Tab) 650 mg PO Q4H PRN PRN Reason: Pain or Fever Stop: 02/11/22 00:07 Cyanocobalamin (Cyanocobalamin (B-12) 500 Mcg Tablet) 1,000 mcg PO DAILY [facility] Stop: 02/11/22 08:59 Last Admin: 01/13/22 08:04 Dose: 1,000 mcg Heparin Sodium (Porcine) (Heparin Sod 5,000 Unit/0.5 Ml Vial) 5,000 units SQ Q8 [facility] Stop: 02/11/22 05:59 Last Admin: 01/13/22 05:20 Dose: 5,000 units Magnesium Sulfate/Dextrose (Magnesium Sulfate / D5w) 1 gm in 100 mls @ 50 mls/hr IV ONE ONE Stop: 01/13/22 13:23 Lactobacillus Acidophilus (Advanced Probiotic 1250 Mg Capsule) 2 cap PO PM [facility] Stop: 02/11/22 20:59 Last Admin: 01/12/22 19:54 Dose: 2 cap Lamotrigine (Lamotrigine 100 Mg Tab) 100 mg PO BID [facility] Stop: 02/11/22 08:59 Last Admin: 01/13/22 08:05 Dose: 100 mg Metoprolol Succinate (Metoprolol Succ 50mg Ext Rel Tab) 50 mg PO PM [facility] Stop: 02/11/22 20:59 Last Admin: 01/12/22 19:54 Dose: 50 mg Metoprolol Succinate (Metoprolol Succ 50mg Ext Rel Tab) 75 mg PO QAM [facility] Stop: 02/11/22 08:59 Last Admin: 01/13/22 08:06 Dose: 75 mg Nitroglycerin (Nitroglycerin Sl 0.4 Mg/Tab Tab) 0.4 mg SL UD PRN PRN Reason: Chest Pain Stop: 02/11/22 00:07 Ondansetron HCl (Ondansetron Inj 2 Mg/Ml 2 Ml Vial) 4 mg IV Q6H PRN PRN Reason: Nausea Stop: 02/11/22 00:07 Last Admin: 01/12/22 02:25 Dose: 4 mg Pantoprazole Sodium (Pantoprazole 40 Mg Tab) 40 mg PO BID [facility] Stop: 02/11/22 08:59 Last Admin: 01/13/22 08:05 Dose: 40 mg Potassium Chloride (Potassium Chloride Pwd 20 Meq Pack) 20 meq PO QAM [facility] Stop: 02/11/22 10:29 Last Admin: 01/12/22 11:07 Dose: 20 meq Prenat Multivit/[employer]/Iron/Folic Ac ( Vitamin 1 Tab) 1 tab PO DAILY [facility] Stop: 02/11/22 08:59 Last Admin: 01/13/22 08:05 Dose: 1 tab Sucralfate (Sucralfate 1 Gm Tab) 1 gm PO TID [facility] Stop: 02/11/22 08:59 Last Admin: 01/13/22 08:04 Dose: 1 gm
[2022-01-13] MEDS ORDERED: MAGNESIUM SULFATE / D5W 1 GM/100 ML BAG IV ONE (11:24)
[2022-01-13 13:44] LABS: BUN Creatinine Ratio 3.1 (10-20); Calcium 7.7 mg/dl (8.5-10.1); Creatinine Clr Calc Pharmacy 83.9 ml/min; Est GFR (African American) 118.3 ml/min; Est GFR (Non-African American) 102.1 ml/min; Potassium 3.2 mmol/L (3.5-5.1)
[2022-01-13] MEDS ORDERED: POTASSIUM CHLORIDE 40 MEQ in SODIUM CHLORIDE 0.9% 1000ML 1,000 ML IV SCH (14:13)
[2022-01-13] MEDS ORDERED: POTASSIUM CHLORIDE 40 MEQ in SODIUM CHLORIDE 0.9% 1000ML 1,000 ML IV STA (14:16)
--- NOTE | 2022-01-13 14:24 | Nephrology Progress Note ---
Date of Service January 13, 2022 Assessment & Plan (1) Hyponatremia: Plan: challenging hyponatremia and electrolyte disorder. at past admission responded to fluid resuscitation and has done that as well here overnight. urine studies 01/12 most c/w polydipsia (as they were in 2019); now this am urine studies more c/w low solute diet -increased potassium from 20 mEq daily to 20 mEq tid; also giving K in NS; sodium will not correct w/o eukalemia -gave her fluid limit 1.2L this am and needs STRICT I/O, daily standing weight -check mag w/ next labs - order in -will give 1 L NS over 2 hrs w/ 40 mEq / L K and evaluate status -repeat bmp , mag for 1800 ordered Admission and Anticipated Discharge Date Admission Date: January 11, 2022 Subjective seen on rounds this am; no sob, no n/v currently; eating full breakfast; no report of confusion or gait instability; stable chronic diarrhea Review of Systems Review of Systems: All systems reviewed & are unremarkable except as noted in Subjective Physical Exam Constitutional: well developed and well nourished Eyes: EOM intact bilaterally ENMT: Ears: no external ear abnormality Nose: no external nose abnormality Mouth: + dry oral mucous membranes Neck: no nuchal rigidity Respiratory: normal respiratory effort Auscultation: + diminished lung sounds Cardiovascular: RRR, no murmur, no edema Gastrointestinal (Abdomen): Inspection/Auscultation: normal bowel sounds Percussion/Palpation: abdomen soft; abdomen nontender Musculoskeletal: Extremities: strength 5/5 throughout Skin: no rashes, warm and dry Neurologic: camejo, fluent speech, no tremor Psychiatric: Orientation: oriented x 3 Results & Data ([facility]) Vital Signs (Past 12 Hours) Vital Signs Temp Pulse Pulse Resp BP Pulse Ox O2 Del Method 01/13/22 11:58 67 01/13/22 11:55 36.7 C 63 18 109/77 100 Room Air 01/13/22 08:40 36.8 C 63 18 111/77 100 Room Air 01/13/22 08:14 66 110/76 01/13/22 03:54 36.5 C 66 16 91/64 L 96 Room Air Laboratory Results 01/12/22 05:20 01/13/22 12:31 recheck uOsm 260; [id number]
--- NOTE | 2022-01-13 14:40 | Electrocardiogram Report ---
Test Reason : Blood Pressure : / mmHG Vent. Rate : 060 BPM Atrial Rate : 060 BPM P-R Int : 184 ms QRS Dur : 084 ms QT Int : 460 ms P-R-T Axes : 045 070 000 degrees QTc Int : 460 ms Normal sinus rhythm Nonspecific T wave abnormality Prolonged QT Abnormal ECG When compared with ECG of 12-JAN-2022 05:10, T wave inversion less evident in Anterior leads Confirmed by Gopi Youssef ([id number]) on 01/13/2022 2:40:45 PM Referred By: REFERRED SELF Confirmed By:Gopi Youssef
[2022-01-13] MEDS: POTASSIUM CHLORIDE PWD 20 MEQ PACK PO SCH ×2 (14:50→20:20)
[2022-01-13 18:44] LABS: BUN Creatinine Ratio 2.6 (10-20); Calcium 7.6 mg/dl (8.5-10.1); Creatinine Clr Calc Pharmacy 70.8 ml/min; Est GFR (African American) 102.9 ml/min; Est GFR (Non-African American) 88.8 ml/min; Potassium 4.5 mmol/L (3.5-5.1)
[2022-01-13] MEDS ORDERED: SODIUM CHLORIDE 0.9% 1000ML 1,000 ML IV SCH (19:00)
[2022-01-13] MEDS: ADVANCED PROBIOTIC 1250 MG CAPSULE PO SCH (20:18)
[2022-01-13] MEDS: ACETAMINOPHEN 325 MG TAB PO PRN (22:37)
[2022-01-14] MEDS: HEPARIN SOD 5,000 UNIT/0.5 ML VIAL SQ SCH ×2 (05:39→17:06)
[2022-01-14 07:11] LABS: BUN Creatinine Ratio 4.8 (10-20); Calcium 7.7 mg/dl (8.5-10.1); Est GFR (African American) 119.5 ml/min; Est GFR (Non-African American) 103.1 ml/min; Magnesium 1.9 mg/dl (1.7-2.4); Phosphorus 1.9 mg/dl (2.5-4.9); Potassium 4.4 mmol/L (3.5-5.1)
--- NOTE | 2022-01-14 07:57 | Hospitalist Progress Note ---
Date of Service January 14, 2022 Assessment & Plan (1) Nausea & vomiting: (2) Acute hyponatremia: (3) Acute hypokalemia: Plan: This 51-year-old female presents with ongoing nausea, vomiting and found to have hypokalemia and hyponatremia. 1. Nausea, vomiting possibly gastroenteritis. n/v resolved She is tolerating diet CT abd/pelvis IMPRESSION: No acute infectious or inflammatory findings are identified in the abdomen or pelvis. Continue home omeprazole 40 mg b.i.d. 2. Hyponatremia. Sodium of 115 on admission. She had a sodium of 128 last month. She is on sodium tablets 1 g daily. Discussed with nephrology overnight, received IV NS fluids in the Emergency Room. Check BMP q.4 hours started. Goal is to correct 6 mEq in 24 hours. If it is correcting more than 0.5 mEq every hour, we will start D5 water and titrate the fluids. Na 122 early AM 01/12 - D5 started, desmopressin given 01/12 - pt received NS and also lasix overnight Na 118 (01/13 AM) Na 128 (01/14 AM)-> received D5W, now 126 -checked serum osmolality, urine osmolality, random urine sodium levels and closely monitored Nephrology consulted, appreciate their input 01/14 -ideally will monitor patient and her sodium levels, however she is eager for discharge. 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 provider w/in 2 wks 3. Hypokalemia. replace and monitor. Correction of potassium going to help in the correction of sodium. 4. History of seizure disorder. Continue Lamictal. 5. History of supraventricular tachycardia. Continue on metoprolol. 6. B12 deficiency. Continue supplement. 7. Gastroesophageal reflux disease. Continue omeprazole and sucralfate. DVT prophylaxis. Heparin subq DISPOSITION: tele floor. Code: full code. Dispo: Expect to discharge home and follow with family doctor and nephrology Admission and Anticipated Discharge Date Admission Date: January 11, 2022 Subjective Patient seen in follow-up of electrolyte abnormalities, nausea vomiting Nausea and vomiting resolved, patient is now tolerating diet Currently laying in bed, in no acute distress Denies fevers, chills, chest pain, shortness of breath Denies abdominal pain Has chronic diarrhea Review of Systems Review of Systems: All systems reviewed & are unremarkable except as noted in Subjective Physical Exam Physical Exam: GENERAL: The patient is of moderate build, not in acute distress. HEENT: NC/AT. EOMI. Pupils equal, round and reactive to light. Oral mucosa moist. NECK: No JVD, no neck masses. CARDIOVASCULAR: S1 and S2 heard. Regular rate and rhythm. No murmur, no gallop. RESPIRATORY SYSTEM: Normal AP diameter. No accessory muscle use. No wheezing, no crackles. ABDOMEN: Soft, bowel sounds present, nontender, no distention. NEURO: Alert oriented, answering questions appropriately, no facial asymmetry, moves extremities EXTREMITIES: No edema, no erythema. Results & Data Results & Data ([facility]) Vital Signs (Past 12 Hours) Vital Signs Temp Pulse Pulse Resp BP Pulse Ox O2 Del Method 01/14/22 07:52 36.4 C L 82 18 114/76 100 Room Air 01/14/22 03:42 36.4 C L 82 18 95/64 L 96 Room Air 01/13/22 23:37 36.5 C 79 18 102/70 100 Room Air 01/13/22 22:54 73 Laboratory Results 01/14/22 01/13/22 01/13/22 Range/Units 06:08 17:41 12:31 Sodium 128 L D 119 L* 117 L* (136-145) mmol/L Potassium 4.4 4.5 D 3.2 L (3.5-5.1) mmol/L Chloride 104 94 L 87 L (98-107) mmol/L Carbon Dioxide 21 21 24 (21-32) mmol/L Anion Gap 3 4 6 (3-11) BUN 3 L 2 L 2 L (6-23) mg/dl Creatinine 0.63 0.77 0.65 (0.6-1.2) mg/dl Est Cr Clr Drug Dosing 93.0 70.8 83.9 ml/min Est GFR ( Amer) 119.5 102.9 118.3 ml/min Est GFR (Non-Af Amer) 103.1 88.8 102.1 ml/min BUN/Creatinine Ratio 4.8 L 2.6 L 3.1 L (10-20) Glucose 78 102 H 86 (70-99(Fasting)) mg/dl Calcium 7.7 L 7.6 L 7.7 L (8.5-10.1) mg/dl Phosphorus 1.9 L (2.5-4.9) mg/dl Magnesium 1.9 2.0 (1.7-2.4) mg/dl Urine Osmolality (500-800) mOsm/kg Ur Random Sodium mmol/L 01/13/22 01/13/22 01/13/22 Range/Units 11:32 11:32 09:21 Sodium 118 L* (136-145) mmol/L Potassium 3.4 L (3.5-5.1) mmol/L Chloride 91 L (98-107) mmol/L Carbon Dioxide 20 L (21-32) mmol/L Anion Gap 7 (3-11) BUN 2 L (6-23) mg/dl Creatinine 0.69 (0.6-1.2) mg/dl Est Cr Clr Drug Dosing 78.3 ml/min Est GFR ( Amer) 116.0 ml/min Est GFR (Non-Af Amer) 100.1 ml/min BUN/Creatinine Ratio 2.9 L (10-20) Glucose 113 H (70-99(Fasting)) mg/dl Calcium 7.7 L (8.5-10.1) mg/dl Phosphorus (2.5-4.9) mg/dl Magnesium (1.7-2.4) mg/dl Urine Osmolality 260 L (500-800) mOsm/kg Ur Random Sodium 51 mmol/L Medications Administered Current Inpatient Medications Acetaminophen (Acetaminophen 325 Mg Tab) 650 mg PO Q4H PRN PRN Reason: Pain or Fever Stop: 02/11/22 00:07 Last Admin: 01/13/22 22:37 Dose: 650 mg Cyanocobalamin (Cyanocobalamin (B-12) 500 Mcg Tablet) 1,000 mcg PO DAILY [facility] Stop: 02/11/22 08:59 Last Admin: 01/13/22 08:04 Dose: 1,000 mcg Heparin Sodium (Porcine) (Heparin Sod 5,000 Unit/0.5 Ml Vial) 5,000 units SQ Q8 [facility] Stop: 02/11/22 05:59 Last Admin: 01/14/22 05:39 Dose: 5,000 units Lactobacillus Acidophilus (Advanced Probiotic 1250 Mg Capsule) 2 cap PO PM [facility] Stop: 02/11/22 20:59 Last Admin: 01/13/22 20:18 Dose: 2 cap Lamotrigine (Lamotrigine 100 Mg Tab) 100 mg PO BID [facility] Stop: 02/11/22 08:59 Last Admin: 01/13/22 20:18 Dose: 100 mg Metoprolol Succinate (Metoprolol Succ 50mg Ext Rel Tab) 50 mg PO PM [facility] Stop: 02/11/22 20:59 Last Admin: 01/13/22 20:18 Dose: 50 mg Metoprolol Succinate (Metoprolol Succ 50mg Ext Rel Tab) 75 mg PO QAM [facility] Stop: 02/11/22 08:59 Last Admin: 01/13/22 08:06 Dose: 75 mg Nitroglycerin (Nitroglycerin Sl 0.4 Mg/Tab Tab) 0.4 mg SL UD PRN PRN Reason: Chest Pain Stop: 02/11/22 00:07 Ondansetron HCl (Ondansetron Inj 2 Mg/Ml 2 Ml Vial) 4 mg IV Q6H PRN PRN Reason: Nausea Stop: 02/11/22 00:07 Last Admin: 01/12/22 02:25 Dose: 4 mg Pantoprazole Sodium (Pantoprazole 40 Mg Tab) 40 mg PO BID [facility] Stop: 02/11/22 08:59 Last Admin: 01/13/22 20:19 Dose: 40 mg Potassium Chloride (Potassium Chloride Pwd 20 Meq Pack) 20 meq PO TID [facility] Stop: 02/12/22 14:29 Last Admin: 01/13/22 20:20 Dose: 20 meq Prenat Multivit/[employer]/Iron/Folic Ac ( Vitamin 1 Tab) 1 tab PO DAILY [facility] Stop: 02/11/22 08:59 Last Admin: 01/13/22 08:05 Dose: 1 tab Sucralfate (Sucralfate 1 Gm Tab) 1 gm PO TID [facility] Stop: 02/11/22 08:59 Last Admin: 01/13/22 20:21 Dose: 1 gm
[2022-01-14] MEDS: SUCRALFATE 1 GM TAB PO SCH ×2 (08:07→17:06)
[2022-01-14] MEDS: PANTOprazole 40 MG TAB PO SCH (08:07)
[2022-01-14] MEDS: POTASSIUM CHLORIDE PWD 20 MEQ PACK PO SCH ×2 (08:07→17:06)
[2022-01-14] MEDS: METOPROLOL SUCC 50MG EXT REL TAB PO SCH (08:08)
[2022-01-14] MEDS: lamoTRIgine 100 MG TAB PO SCH (08:08)
[2022-01-14] MEDS: PRENATAL VITAMIN 1 TAB PO SCH (08:08)
[2022-01-14] MEDS: CYANOCOBALAMIN (B-12) 500 MCG TABLET PO SCH (08:08)
[2022-01-14] MEDS: DEXTROSE 5% 1,000 ML IV SCH ×2 (09:33→13:33)
[2022-01-14] MEDS: ACETAMINOPHEN 325 MG TAB PO PRN (12:14)
[2022-01-14 14:16] LABS: BUN Creatinine Ratio 3.2 (10-20); Calcium 7.9 mg/dl (8.5-10.1); Est GFR (African American) 119.5 ml/min; Est GFR (Non-African American) 103.1 ml/min; Phosphorus 2.6 mg/dl (2.5-4.9)
--- NOTE | 2022-01-14 15:10 | Nephrology Progress Note ---
Date of Service January 14, 2022 Assessment & Plan (1) Hyponatremia: Plan: challenging hyponatremia and electrolyte disorder. at past admission responded to fluid resuscitation and has done that as well here overnight. urine studies 01/12 most c/w polydipsia (as they were in 2019); last urine studies more c/w low solute diet but she responds to fluid -1300 labs reviewed > Na 126, K 4.0 >> stopped D5W; resume NS w/ 40 mEq/L KCl at 80 -cont KCl po as well 20 mEq tid; sodium will not correct w/o eukalemia -cont fluid limit 1.2L and STRICT I/O, daily standing weight -check mag and phos q AM -next BMP tomorrow AM Admission and Anticipated Discharge Date Admission Date: January 11, 2022 Subjective seen on rounds this am > sodium improving rapidly to 128; started pt on D5W to slow course. no n/v. diarrhea for now quiet . states she likes sucralfate tabs better than liquid. no sob, no edema. Review of Systems Review of Systems: All systems reviewed & are unremarkable except as noted in Subjective Physical Exam Constitutional: well developed and well nourished Eyes: EOM intact bilaterally ENMT: Ears: no external ear abnormality Nose: no external nose abnormality Mouth: + dry oral mucous membranes Neck: no nuchal rigidity Respiratory: normal respiratory effort Auscultation: + diminished lung sounds Cardiovascular: RRR, no murmur, no edema Gastrointestinal (Abdomen): Inspection/Auscultation: normal bowel sounds Percussion/Palpation: abdomen soft; abdomen nontender Musculoskeletal: Extremities: strength 5/5 throughout Skin: no rashes, warm and dry Psychiatric: Orientation: oriented x 3 Results & Data ([facility]) Vital Signs (Past 12 Hours) Vital Signs Temp Pulse Resp BP Pulse Ox O2 Del Method 01/14/22 11:29 36.7 C 79 18 103/74 100 Room Air 01/14/22 07:52 36.4 C L 82 18 114/76 100 Room Air 01/14/22 03:42 36.4 C L 82 18 95/64 L 96 Room Air Laboratory Results 01/12/22 05:20 01/14/22 13:08
[2022-01-14] MEDS ORDERED: POTASSIUM CHLORIDE 40 MEQ in SODIUM CHLORIDE 0.9% 1000ML 1,000 ML IV SCH (15:30)
--- NOTE | 2022-01-14 18:05 | Discharge Summary ---
Date of Service January 14, 2022 Admission HPI Per Admitting Provider This is a 51-year-old female with past medical history significant for cough variant asthma, frequent PVCs, history of B12 deficiency, history of seizure disorder, hearing loss, history of ankle surgery, history of recurrent periductal mastitis status post excision by surgery, history of hyponatremia and hypokalemia in the past, history of asymptomatic SVT versus atrial tachycardia, history of tobacco abuse, hyperlipidemia, who presents with nausea, vomiting going on for the last 10 days and she has chronic diarrhea. Says nausea somewhat improved today. She was able to eat something today, but as she was not feeling well, she came to the hospital and found to have a sodium of 115. She is on sodium 1 g daily and potassium supplement 10 mEq daily. Sodium was 128 on 11/27/2021 and 11/29/2021 on outpatient labs. Resting comfortably, hemodynamically stable. Denies any headache. She was feeling dizzy today. No blurred visions, no earache, no runny nose, no sore throat. No cough. She says she had COVID twice in the past and she is not vaccinated. Denies any chest pain. She has occasional cough. No shortness of breath, no abdominal pain. Has chronic diarrhea. Denies any blood in the stool or black stools. Micturating okay. No swelling in the legs. Admission Exam Per Admitting Provider GENERAL: The patient is of moderate build, not in acute distress. VITAL SIGNS: Temperature 36.1, pulse 73, respiratory rate 18, blood pressure 99/63, oxygen 100% on room air. HEENT: Pupils equal, round and reactive to light. Oral mucosa moist. NECK: No JVD, no neck masses. CARDIOVASCULAR: S1 and S2 heard. Regular rate and rhythm. No murmur, no gallop. RESPIRATORY SYSTEM: Normal AP diameter. No accessory muscle use. No wheezing, no crackles. ABDOMEN: Soft, bowel sounds present, nontender, no distention. CENTRAL NERVOUS SYSTEM: Cranial nerves II-XII grossly intact, nonfocal. EXTREMITIES: No edema, no erythema. Principal Diagnosis Hyponatremia Nausea vomiting Discharge Exam GENERAL: The patient is of moderate build, not in acute distress. HEENT: NC/AT. EOMI. Pupils equal, round and reactive to light. Oral mucosa moist. NECK: No JVD, no neck masses. CARDIOVASCULAR: S1 and S2 heard. Regular rate and rhythm. No murmur, no gallop. RESPIRATORY SYSTEM: Normal AP diameter. No accessory muscle use. No wheezing, no crackles. ABDOMEN: Soft, bowel sounds present, nontender, no distention. NEURO: Alert oriented, answering questions appropriately, no facial asymmetry, moves extremities EXTREMITIES: No edema, no erythema. Discharge Data Allergies Allergy/AdvReac Type Severity Reaction Status Date / Time verapamil AdvReac Unknown Leg Verified 01/11/22 21:30 numbness Consultations 01/11/22 21:02 ED Decision to Admit Stat 01/12/22 08:00 Consult Nephrology Routine Ordered Studies 01/11/22 20:01 CT Abd and Pelvis [CT abd pelvis wo con] Stat FINDINGS: Lung bases: The heart is normal in size and without pericardial effusion. The lung bases are clear. Liver: The unenhanced liver is normal in size, contour, and attenuation. There is no intrahepatic biliary ductal dilatation. A subcentimeter cyst in the left lobe is unchanged. Gallbladder: Surgically absent. Spleen: Normal in size and attenuation. Pancreas: Unremarkable. Adrenal glands: Unremarkable. Kidneys: The unenhanced kidneys are normal in size and without hydronephrosis. There are no renal calculi identified. There is no evidence of contour deforming renal mass lesion. Abdominal vasculature: The abdominal aorta is normal in course and caliber noting moderate to advanced atherosclerotic calcification. Bowel: There are scattered colonic diverticula without CT evidence of acute diverticulitis. No bowel obstruction is seen. The appendix is not identified and reported surgically absent. Peritoneum: There is no intraperitoneal free air or abdominal ascites. Lymphadenopathy: None. Pelvic viscera: The bladder, uterus, and adnexa are normal as visualized. Skeletal structures: The skeletal structures appear osteopenic. There is mild spondylotic change at L5-S1. No lytic or blastic lesions are seen. There are healed left anterior rib fractures. IMPRESSION: No acute infectious or inflammatory findings are identified in the abdomen or pelvis. Hospital Course (1) Nausea & vomiting: (2) Acute hyponatremia: (3) Acute hypokalemia: This 51-year-old female presents with ongoing nausea, vomiting and found to have hypokalemia and hyponatremia. 1. Nausea, vomiting possibly gastroenteritis. n/v resolved She is tolerating diet CT abd/pelvis IMPRESSION: No acute infectious or inflammatory findings are identified in the abdomen or pelvis. Continue home omeprazole 40 mg b.i.d. 2. Hyponatremia. Sodium of 115 on admission. She had a sodium of 128 last month. She is on sodium tablets 1 g daily. Discussed with nephrology overnight, received IV NS fluids in the Emergency Room. Check BMP q.4 hours started. Goal is to correct 6 mEq in 24 hours. If it is correcting more than 0.5 mEq every hour, we will start D5 water and titrate the fluids. Na 122 early AM 01/12 - D5 started, desmopressin given 01/12 - pt received NS and also lasix overnight Na 118 (01/13 AM) Na 128 (01/14)-> received D5W, now 126 -checked serum osmolality, urine osmolality, random urine sodium levels and closely monitored Nephrology consulted, appreciate their input 01/14 -ideally would monitor patient and her sodium levels, however she is eager for discharge. Plan for close follow-up with outpatient providers, and blood work -d/c on prior to admission salt tabs, K dose -have hospital d/c senior materials planner tell renal RN to order bmp, serum osms, urine osms, rd urine sodium, mag, phos no later than 01/21 -needs hospital f/u any [facility] provider w/in 2 wks 3. Hypokalemia. replace and monitor. Correction of potassium going to help in the correction of sodium. 4. History of seizure disorder. Continue Lamictal. 5. History of supraventricular tachycardia. Continue on metoprolol. 6. B12 deficiency. Continue supplement. 7. Gastroesophageal reflux disease. Continue omeprazole and sucralfate. Dispo: Expect to discharge home and follow with family doctor and nephrology Total Time Total Time Spent Total Time Spent (In Minutes): 40 Discharge Plan Discharge Items Patient Disposition: Home - Self-Care Reason For Visit: ABNORMAL LABS Discharge Diagnosis: Hyponatremia Nausea vomiting Activity: Per Instructions section Non-emergency contact: Primary Care Provider Call non-emergency contact if: you have any medication questions and your symptoms worsen Follow-up/Referrals: Florentino Covarrubias DO [Primary Care Provider] - Diet: Regular Fluids: 1800ml (7 cups) Addtl Attending Provider Instructions: Follow-up with primary care doctor, within 1 to 2 weeks. You will need to get blood work to check on your electrolytes - bmp, serum osms, urine osms, rd urine sodium, mag, phos no later than 01/21 Continue your salt tablets and potassium supplement. Pending Studies at Discharge: No Stand-Alone Forms: My [facility], Smoking Cessation Medications and DC Order Prescriptions: Continued lamotrigine [Lamictal] 100 mg tablet 100 mg PO BID metoprolol succinate 50 mg tablet extended release 24 hr See Rx Instructions .ROUTE .COMPLEX Rx Instructions: TAKE ONE AND ONE HALF TABLETS (75 MG) EVERY MORNING AND ONE TABLET (50 MG) IN THE EVENING Probiotic 3 billion cell Capsule 0 mmu cells PO PM Rx Instructions: UNKNOWN STRENGTH omeprazole 40 mg Capsule,Delayed Release(Dr/Ec) 40 mg PO BID sucralfate [Carafate] 1 gram Tablet 1 g PO TID mecobalamin (vitamin B12) 1,000 mcg tablet,disintegrating 1,000 mcg PO DAILY prenat.vits,jennifer,[id number] Tablet 1 tab PO DAILY potassium chloride 10 mEq capsule, extended release 10 meq PO BID sodium chloride 1 gram tablet 1 g PO DAILY Discharge Orders: Discharge Order (Routine); Ordered 01/14/22 Ordered By: Zaheer Mccabe Admission Data Admit Date/Time: 01/11/22 22:13 Attending Provider: Zaheer Mccabe Admit Provider: Guille Baker Primary Care Provider: Florentino Covarrubias Other Providers: Guille Baker ; Millicent Bass ; Carlton Helms ; Sunita Dhillon Japheth E. ; Elieser Muse ; Rosalie De La Rosa Other Interventions: Discharge Summary Assessment (RN) Last Done: 01/14/22 17:48
== END 2022-01-14 18:20 | disposition home or self-care (01) | DRG 641 ==
LOC: ED 19:47 → 2S 22:13

== ENCOUNTER 2025-05-09 00:08 | Inpatient (IN) ==
--- NOTE | 2025-05-09 00:28 | Emergency Department Note ---
History of Present Illness General Chief complaint: Abdominal Pain Stated complaint: LT SIDE ABD PAIN Time Seen by Provider: 05/09/25 00:18 History of Present Illness Maximum Pain Intensity: 8 This 55-year-old female that smokes presents ER complaining of severe mid abdominal pain with ongoing chest pain. Patient was seen here the other day. Patient states since then she has developed severe abdominal pain. She has had bowel surgery many years ago for a mass in her colon. No current colon cancer. Gallbladder and appendix have been surgically removed per patient. Patient denies fever, chills, vomiting, diarrhea. Home Medications Medication Instructions Recorded Confirmed Type lamotrigine 100 mg tablet 100 mg PO BID 02/25/19 05/06/25 History (Lamictal) omeprazole 40 mg capsule,delayed 40 mg PO BID 12/22/19 05/06/25 History release metoprolol succinate 50 mg 75 mg PO QAM 04/17/20 05/06/25 History tablet,extended release 24 hr aspirin 81 mg tablet,delayed 81 mg PO DAILY 05/06/25 05/06/25 History release famotidine 20 mg tablet 20 mg PO HS 05/06/25 05/06/25 History folic acid 1 mg tablet 1 mg PO DAILY 05/06/25 05/06/25 History lidocaine 5 % topical patch 1 patch transdermal Q12H PRN Pain 05/06/25 05/06/25 History metoprolol succinate 50 mg 50 mg PO QPM 05/06/25 05/06/25 History tablet,extended release 24 hr oxycodone 5 mg tablet 5 mg PO Q8H PRN pain #15 tabs 05/06/25 Rx vit no.95-ferrous 1 tab PO DAILY 05/06/25 05/06/25 History fumarate 28 mg-folic acid 800 mcg tablet () sodium chloride 1,000 mg soluble 1,000 mg PO DAILY 05/06/25 05/06/25 History tablet sucralfate 100 mg/mL oral 10 ml PO TID PRN Heartburn 05/06/25 05/06/25 History suspension Allergies Allergy/AdvReac Type Severity Reaction Status Date / Time ceftriaxone Allergy Unknown UNKNOWN ON Verified 05/06/25 21:10 [facility] nickel AdvReac Severe SEE COMMENT Verified 05/06/25 21:10 verapamil AdvReac Severe SEVERE Verified 05/06/25 21:10 DIZZINESS, NEUROPATHY IN LEGS ciprofloxacin [From Cipro] AdvReac Intermediate NUMBNESS Verified 05/06/25 21:10 IN ABDOMEN & HANDS gabapentin AdvReac Intermediate Abdominal Verified 05/06/25 21:10 Pain levofloxacin AdvReac Intermediate NEURO Verified 05/06/25 21:10 COMPLICATIONS PER INGRIDER Past Med/Surg History Problem List (Updated 05/09/25 @ 02:53 by Allison Medrano PA-C) Pancreatitis (Acute) Rib pain on left side (Acute) Hyponatremia Nausea & vomiting (Acute) Acute hyponatremia (Acute) Acute hypokalemia (Acute) Abnormal ECG (Acute) Painful orthopaedic hardware Encounter for pre-operative examination Fever (Acute 03/08/14) SOB (shortness of breath) (Acute 03/08/14) Tachycardia (Acute 03/08/14) Pneumonia (Acute 03/08/14) Fever (Acute) SOB (shortness of breath) (Acute) Tachycardia (Acute) Pneumonia (Acute) Trimalleolar fracture of ankle, open (Acute) Encounter for pre-operative examination Fall (Acute) Nausea & vomiting Nondisplaced fracture of lateral malleolus of left fibula, subsequent encounter for open fracture type I or II with nonunion Retained orthopedic hardware Cutaneous abscess of left ankle Medical History Exercise-induced asthma as teenager Type 2 diabetes mellitus monitoring without definitive diagnosis per pt, expresses elevated A1cs were occurring at time of significant infection in past Frequent PVCs stable per most recent [facility] cardio note Gastric ulcer History of benign breast biopsy Deafness in right ear Chronic diarrhea GERD (gastroesophageal reflux disease) controlled, stable per pt Acute renal failure Hypokalemia Hyponatremia SVT (supraventricular tachycardia) metoprolol for this > follows with Randy Sanchez Tobacco abuse History -- quit 2014. Epilepsy last episode 2005 > doesn't see neuro anymore, PCP manages; denies any seizure activity since 2006 Surgical History History of anesthesia reaction aggression when coming out of anesthesia > has been told has a small airway but has never had complication with intubation History of breast biopsy right > benign History of dilatation and curettage several History of ankle surgery Left Open Ankle Fracture Incision and Drainage, Left Open Ankle Fracture Open Reduction Internal Fixation 12/22/2019: Grade 1 view, MAC#3, ETT#7.0 atraumatic x 1. No issues per anesthesia postop progress note. Left ankle revision/autograft application 09/28/2020: LMA#4. No issues per anesthesia postop progress note. History of arthroscopy left knee x5 History of esophagogastroduodenoscopy (EGD) History of colonoscopy History of colon resection ascending -- large polyp removed during colo, but per patient caused perforation requiring ex-lap and hemicolectomy. Hx of external ear surgery as kid History of tooth extraction Hx of cholecystectomy Hx of appendectomy S/P ACL repair left knee Family History Uncle Colon cancer Other No family history of adverse response to anesthesia Social History Smoking Status: Current every day smoker Tobacco Type: Cigarettes Second Hand Exposure: Yes; Do You Dip or Chew Tobacco: No; Hx Alcohol Use: No Hx Substance Use: No Preferred Language: Bermudian Communication Ability: Effective Director Of Religious Life Required: No Beliefs That Will Affect Care: None marital status: / Current Living Situation: Other Current Living Situation Comment: with her child Feels Safe at Home: Yes Assistive Devices: Cane Review of Systems A total of 10 systems reviewed and were otherwise negative Physical Exam Vital Signs Vital Signs - 24 hr 05/09/25 00:12 05/09/25 00:23 05/09/25 00:45 Temperature 36.5 C Temperature Source Temporal Artery Scan Pulse Rate 95 H 109 H Pulse Rate from SpO2 Sensor 107 H Respiratory Rate 19 21 Respiratory Effort / Characteristics Non-Labored Spontaneous Respiratory Depth Normal Blood Pressure 158/85 H 168/87 H Blood Pressure Mean 109 114 Pulse Oximetry 98 97 Oxygen Delivery Method Room Air Room Air Sepsis Recent Fever Within 48 Hours No Sepsis New/Unexplained Change in Mental Status N/A Sepsis Action Taken by Nursing No Action Required 05/09/25 01:00 05/09/25 01:39 Temperature Temperature Source Pulse Rate 92 H 97 H Pulse Rate from SpO2 Sensor 93 H 97 H Respiratory Rate 14 26 H Respiratory Effort / Characteristics Respiratory Depth Blood Pressure 173/101 H Blood Pressure Mean 125 Pulse Oximetry 96 94 Oxygen Delivery Method Sepsis Recent Fever Within 48 Hours Sepsis New/Unexplained Change in Mental Status Sepsis Action Taken by Nursing VITALS: Vitals are noted on the nurse's note and reviewed by myself. Vital signs stable. GENERAL: White female with tobacco odor, in no acute distress, nondiaphoretic, well-developed well-nourished. SKIN: Capillary reflex less than 2 seconds. HEENT: Normocephalic. PERRLA. EOMI. Nares patent. Mucous membranes moist. Neck is supple without nuchal rigidity. HEART: Regular rate and rhythm LUNGS: Clear to auscultation bilaterally without wheezes, rales or rhonchi. No retractions or accessory muscle use. ABDOMEN: Positive bowel sounds x 4. Normal tympanic percussion. Soft, diffusely tender to palpation, without masses or organomegaly. Yu sign negative. No guarding or rebound tenderness. no CVA tenderness MUSCULOSKELETAL: No gross musculoskeletal defects. NEURO: Patient was alert and oriented to person place and time. No focal neurological deficits. Course Administered Medications Lactated Ringer's (Lr) 1,000 mls @ 999 mls/hr IV .Q1H1M ONE Stop: 05/09/25 03:14 Last Admin: 05/09/25 02:41 Dose: 999 mls/hr Documented By: DEE Discontinued Medications Sodium Chloride (Nss) 1,000 mls @ 999 mls/hr IV .Q1H1M STA Stop: 05/09/25 01:23 Last Infusion: 05/09/25 01:51 Dose: Infused Documented By: Admin: 05/09/25 00:46 Dose: 999 mls/hr Documented By: SATNAM Famotidine (Pepcid 20mg Iv Push) 20 mg in 5 mls @ 2.5 mls/min IV NOW STA Stop: 05/09/25 00:31 Last Admin: 05/09/25 00:47 Dose: 2.5 mls/min Documented By: SATNAM Ioversol (Optiray 320 125ml) 125 ml IV ONCE ONE Stop: 05/09/25 01:30 Last Admin: 05/09/25 01:29 Dose: 118 ml Documented By: CASSI Morphine Sulfate (Morphine Sulfate 4 Mg/Ml 1 Ml Carp\Vial) 4 mg IV NOW STA Stop: 05/09/25 00:24 Last Admin: 05/09/25 00:47 Dose: 4 mg Documented By: SATNAM Ondansetron HCl (Ondansetron Inj 2 Mg/Ml 2 Ml Vial) 4 mg IV NOW STA Stop: 05/09/25 00:24 Last Admin: 05/09/25 00:46 Dose: 4 mg Documented By: SATNAM Medical Decision Making Medical Records Attestation: I reviewed the patient's medical records. Home Medications Current Medication List: was personally reviewed by me Laboratory Data Attestation: I reviewed the patient's lab results. 05/09/25 00:35 05/09/25 00:35 Lab Results 05/09/25 05/09/25 Range/Units 00:35 00:50 WBC 13.42 H (4.8-10.8) K/ul RBC 4.00 L (4.20-5.40) M/uL Hgb 15.6 (12.0-16.0) g/dL Hct 43.1 (37.0-47.0) % MCV 107.8 H (80.0-100.0) fL MCH 39.0 H (25.0-34.0) pg MCHC 36.2 H (32.0-36.0) g/dL RDW Std Deviation 51.2 H (36.4-46.3) fL RDW Coeff of Gabriel 12.7 (11.5-14.5) % Plt Count 130 (130-400) K/uL MPV 11.4 (9.4-12.4) fL Immature Gran % (Auto) 0.4 % Neut % (Auto) 82.9 % Lymph % (Auto) 10.5 % [place] % (Auto) 5.9 % Eos % (Auto) 0.2 % Baso % (Auto) 0.1 % Neut # (Auto) 11.11 H (1.40-6.50) K/uL Lymph # (Auto) 1.41 (1.20-3.40) K/uL [place] # (Auto) 0.79 H (0.11-0.59) K/uL Eos # (Auto) 0.03 (0.00-0.50) K/uL Baso # (Auto) 0.02 (0.00-0.20) K/uL Immature Gran # (Auto) 0.06 (0.01-0.20) K/uL Toxic Vacuolation 1+ Platelet Estimate Decreased L (Normal) Polychromasia 1+ Sodium 128 L (136-145) mmol/L Potassium 4.2 (3.5-5.1) mmol/L Chloride 95 L (98-107) mmol/L Carbon Dioxide 23 (21-32) mmol/L Anion Gap 10 (3-11) BUN 5 L (6-23) mg/dl Creatinine 0.72 (0.6-1.2) mg/dl Est Cr Clr Drug Dosing Not Reportable eGFR 98.07 BUN/Creatinine Ratio 6.9 L (10-20) Glucose 119 H (70-99(Fasting)) mg/dl Calcium 9.3 (8.6-10.3) mg/dl Magnesium 2.0 (1.7-2.4) mg/dl Total Bilirubin 1.0 (0.2-1.0) mg/dl AST 30 (13-39) U/L ALT 21 (7-52) U/L Alkaline Phosphatase 103 (34-104) U/L Troponin I High Sens < 2.3 (0-14) pg/ml Total Protein 7.7 (6.0-8.3) gm/dl Albumin 4.3 (3.4-5.0) gm/dl Globulin 3.4 (2.5-4.0) gm/dl Albumin/Globulin Ratio 1.3 (0.9-2) Triglycerides 81 (0-150) mg/dl Lipase 1108 H (11-82) U/L Urine Color Yellow Urine Appearance Clear (Clear) Urine pH 8.0 H (4.5-7.5) Ur Specific Meredith 1.013 (1.000-1.030) Urine Protein 1+ H (Negative) Urine Glucose (UA) Negative (Negative) Urine Ketones 1+ H (Negative) Urine Blood Negative (Negative) Urine Nitrite Negative (Negative) Urine Bilirubin Negative (Negative) Urine Urobilinogen Negative (Negative) Ur Leukocyte Esterase Trace H (Negative) Urine WBC (Auto) 0-5 (0-5) /hpf Urine RBC (Auto) 0-2 (0-2) /hpf U Hyaline Cast (Auto) 0-2 (0-2) /lpf U Epithel Cells (Auto) 0-2 (0-2) /hpf Urine Bacteria (Auto) None Seen (None Seen) Urine Comment Ethyl Alcohol mg/dL < 10.0 (<10.0) mg/dl Imaging Data Attestation: I personally reviewed and interpreted this imaging study as follows: Radiologist's Impression: Chest CTA 05/09/25 00:23 EXAM: CT angio chest PE protocol CLINICAL HISTORY: PE TECHNIQUE: Contiguous axial images were obtained from the neck base through the upper abdomen following intravenous administration of iodinated contrast material. Angiographic images were processed, 3D MIP images were acquired for interpretation. If IV contrast material had not been administered, the likelihood of detecting abnormalities relevant to the patient's condition would have been substantially decreased. Coronal and sagittal 3-D MIPs were likewise performed and indicated to increase the sensitivity of detectin diffuse clinically relevant pathology. CT scan was performed according to ALARA (as low as reasonably achievable). COMPARISON: None. FINDINGS: Few thin walled cyst is noted in bilateral upper lobes with surrounding pleural thickening and fibroatelectasis. Adequate contrast bolus without evidence of pulmonary embolism. The central airways are patent. No pleural effusion. The heart, aorta, and pulmonary arteries are of normal size and configuration. There are no appreciable coronary artery and aortic atherosclerotic calcifications. No pericardial effusion is identified. The thyroid is unremarkable. No mediastinal, hilar, or axillary lymphadenopathy is noted. No suspicious lytic or sclerotic osseous lesions are identified. IMPRESSION: 1. No evidence of pulmonary embolism. Few thin walled cyst is noted in bilateral upper lobes with surrounding pleural thickening and fibroatelectasis. Electronically signed by Bobo Merino 05-09-2025 02:53 AM Abdomen/Pelvis CT 05/09/25 00:24 EXAM: CT abd pelvis IV con only CLINICAL HISTORY: severe abd pain TECHNIQUE: Contiguous axial images were obtained from the level of the diaphragm to the pubic symphysis with intravenous contrast. Coronal and sagittal reconstructions were likewise performed and indicated to increase the sensitivity for detecting clinically relevant pathology. If IV contrast material had not been administered, the likelihood of detecting abnormalities relevant to the patient's condition would have been substantially decreased. CT scan was performed according to ALARA (as low as reasonably achievable). COMPARISON: 19:22:14 [employer] . FINDINGS: The visualized lung bases are clear. The liver is normal in size and reduced attenuation. Tiny cyst noted in left lobe.-stable. There is no intra or extrahepatic biliary ductal dilatation. Hepatic vasculature is patent. The gallbladder is present. The spleen, and adrenal glands are unremarkable. Pancreas appears bulky and shows moderateperipancreatic fat stranding and fluid collection - suggestive of acute pancreatitis. Mild reactive inflammatory wall thickening is noted involving gastric antrum, pylorus and duodenum. Minimal free fluid is noted in bilateral paracolic gutter and in pelvis. The kidneys are normal in size and attenuation. There is no hydronephrosis or perinephric fat stranding. No renal calculi or renal masses are identified. The ureters are normal in caliber and no ureteral calculi are seen. The bladder is normal in contour. Pelvic viscera are unremarkable. No imaging evidence of appendicitis. Abdominal and pelvic vasculature is patent. No aggressive appearing osseous lesions are identified. Diffuse atherosclerotic calcification is noted involving aorta iliac arteries. IMPRESSION: Acute edematous pancreatitis as described. No obvious necrotic component.-new finding. No obvious vascular complication.. Mild reactive inflammatory wall thickening is noted involving gastric antrum, pylorus and duodenum.-new finding. Minimal free fluid is noted in bilateral paracolic gutter and in pelvis.-new finding. Hepatomegaly with hepatic steatosis. -stable. Electronically signed by Bobo Merino 05-09-2025 02:49 AM MDM Narrative Prior records/ancillary studies reviewed. Triage Nursing notes reviewed. Additional history obtained from friend. The patient's history was concerning for chest and abdominal pain. Differential diagnosis: Etiologies such as cardiac, pulmonary, gastritis, appendicitis, diverticulitis, PUD, biliary pathology, UTI, pancreatitis, obstruction, mesenteric ischemia, aortic pathology, infections, inflammatory bowel disease, renal colic, as well as others were entertained. Physical examination findings: As above. ER treatment provided: An order was placed for continuous cardiac monitoring. The monitor shows a rate of 60-100 with a sinus rhythm per my Independent interpretation. IV fluids, Zofran morphine and Pepcid were ordered On reassessment the patient felt better. Diagnostics interpreted by me: ECG: Ordered for chest pain EKG: Normal sinus, T wave inversion lead III, minimal ST depression in the lateral leads, rate of 90. EKG compared to prior EKG with no new changes noted. Impression normal sinus rhythm with nonspecific ST changes similar to prior independently interpreted by myself The labs Independently Interpreted by myself revealed mild leukocytosis, chronic hyponatremia per chart review. Negative alcohol. Negative urine. Glucose 119. No DKA. Elevated lipase. Triglyceride level was sent. Patient is on Lamictal and this could also cause pancreatitis. Imaging studies: Imaging was reviewed and read by radiology HEART SCORE: Hx: high/mod/low suspicion: 0 ECG: ST depression/nonspecific changes/normal: 0 Age: Greater than 65/45-64/less than 45: 1 Risk factors: (Hypertension, hyperlipidemia, diabetes, coronary disease, tobacco use, cocaine use): 1 Troponin: Greater than 2 times normal limits/1-2 times normal limits/normal: 0 Total: 2 Consultation: A consultation was placed with the hospitalist. The case was discussed and diagnostics were reviewed. The patient was evaluated in the ER for further treatment. Exam and history seem consistent with acute pancreatitis. Patient states she does not drink alcohol. She is on Lamictal. This could be causing the pancreatitis. Triglycerides were normal. Medicine was consulted case discussed. She will be admitted to the medical service. By the evaluation outlined above emergent etiologies such as appendicitis, diverticulitis, PUD, biliary pathology, UTI, obstruction, mesenteric ischemia, aortic pathology, inflammatory bowel disease, renal colic, as well as others were deemed relatively unlikely. The pt informed about the findings as listed above. All questions were answered and pleased with the treatment. The chart was completed utilizing [employer] Speech voice recognition software. Grammatical errors, random word insertions, pronoun errors, and incomplete sentences are an occassional consequence of this system due to software limitations, ambient noise, and hardware issues. Any formal questions or concerns about the content, text, or information contained within the body of this dictation should be directly addressed to the physician printing bindery assistant for clarification. Impression & Plan Pancreatitis Discharge Plan Visit Data Chief Complaint: Abdominal Pain Stated Complaint: LT SIDE ABD PAIN ED Provider: Randy Kevin ED Midlevel Provider: Allison Medrano Discharge Problem: Pancreatitis Patient Disposition: Admitted As Inpatient Condition: Fair Forms Stand Alone Forms: [facility] Prescriptions Prescriptions: No Action lamotrigine [Lamictal] 100 mg tablet 100 mg PO BID metoprolol succinate 50 mg tablet extended release 24 hr 75 mg PO QAM omeprazole 40 mg Capsule,Delayed Release(Dr/Ec) 40 mg PO BID metoprolol succinate 50 mg tablet extended release 24 hr 50 mg PO QPM sucralfate 100 mg/mL suspension 10 ml PO TID PRN (Reason: Heartburn) aspirin 81 mg Tablet,Delayed Release (Dr/Ec) 81 mg PO DAILY famotidine 20 mg tablet 20 mg PO HS lidocaine 5 % adhesive patch,medicated 1 patch transdermal Q12H PRN (Reason: Pain) folic acid 1 mg Tablet 1 mg PO DAILY sodium chloride 1,000 mg Tablet,Soluble 1,000 mg PO DAILY PNV no.95-ferrous fumarate-FA [] 28 mg iron- 800 mcg Tablet 1 tab PO DAILY oxycodone 5 mg tablet 5 mg PO Q8H PRN (Reason: pain) Qty: 15 0RF Referrals Referrals: Florentino Covarrubias DO [Outside Practition[facility]] - Discharge Problem: Pancreatitis Qualifiers: Chronicity: acute Pancreatitis type: unspecified pancreatitis type Acute pancreatitis complication: unspecified Qualified Code(s): K85.90 - Acute pancreatitis without necrosis or infection, unspecified
[2025-05-09] MEDS: ONDANSETRON INJ 2 MG/ML 2 ML VIAL IV STA (00:46)
[2025-05-09] MEDS: SODIUM CHLORIDE 0.9% 1,000 ML IV STA (00:46)
[2025-05-09] MEDS: FAMOTIDINE 20MG IV PUSH 20 MG/5 ML SYR IV STA (00:47)
[2025-05-09] MEDS: MoRPHine SULFATE 4 MG/ML 1 ML CARP\\VIAL IV STA ×2 (00:47→03:03)
[2025-05-09 01:14] LABS: Anion Gap 10 (3-11); Blood Urea Nitrogen 5 mg/dl (6-23); Calcium 9.3 mg/dl (8.6-10.3); Carbon Dioxide 23 mmol/L (21-32); Chloride 95 mmol/L (98-107); Glucose 119 mg/dl (70-99(Fasting)); Potassium 4.2 mmol/L (3.5-5.1); Sodium 128 mmol/L (136-145)
[2025-05-09 01:20] LABS: Appearance Urine Clear (Clear); Bacteria Urine Automated None Seen (None Seen); Cast Urine Automated 0-2 /lpf (0-2); Epithelial Cell Urine Auto 0-2 /hpf (0-2); Glucose Urine UA Negative (Negative); RBC Urine Automated 0-2 /hpf (0-2); WBC Urine Automated 0-5 /hpf (0-5)
[2025-05-09 01:22] LABS: Alanine Aminotransferase 21 U/L (7-52); Albumin Globulin Ratio 1.3 (0.9-2); Albumin Level 4.3 gm/dl (3.4-5.0); Alkaline Phosphatase 103 U/L (34-104); Bilirubin,Total 1.0 mg/dl (0.2-1.0); Globulin 3.4 gm/dl (2.5-4.0); Magnesium 2.0 mg/dl (1.7-2.4); Total Protein 7.7 gm/dl (6.0-8.3)
[2025-05-09 01:25] LABS: Hematocrit (blood only) 43.1 % (37.0-47.0); Hemoglobin 15.6 g/dL (12.0-16.0); Mean Corpuscular Hemoglobin 39.0 pg (25.0-34.0); Mean Corpuscular Volume 107.8 fL (80.0-100.0); Platelet Count 130 K/uL (130-400); RDW Standard Deviation 51.2 fL (36.4-46.3); Red Blood Count 4.00 M/uL (4.20-5.40); White Blood Count 13.42 K/ul (4.8-10.8)
[2025-05-09 01:27] LABS: Immature Granulocytes # (auto) 0.06 K/uL (0.01-0.20); Immature Granulocytes % (auto) 0.4 %; Polychromasia 1+; Toxic Vacuolation 1+
[2025-05-09] MEDS: OPTIRAY 320 125ml IV ONE (01:29)
[2025-05-09 02:03] LABS: Lipase 1108 U/L (11-82)
[2025-05-09 02:36] LABS: Triglycerides 81 mg/dl (0-150)
[2025-05-09] MEDS: LACTATED RINGER'S 1,000 ML IV ONE ×2 (02:41→08:27)
--- NOTE | 2025-05-09 02:50 | CT Scan Report ---
EXAM: CT abd pelvis IV con only CLINICAL HISTORY: severe abd pain TECHNIQUE: Contiguous axial images were obtained from the level of the diaphragm to the pubic symphysis with intravenous contrast. Coronal and sagittal reconstructions were likewise performed and indicated to increase the sensitivity for detecting clinically relevant pathology. If IV contrast material had not been administered, the likelihood of detecting abnormalities relevant to the patient's condition would have been substantially decreased. CT scan was performed according to ALARA (as low as reasonably achievable). COMPARISON: 19:22:14 [employer] . FINDINGS: The visualized lung bases are clear. The liver is normal in size and reduced attenuation. Tiny cyst noted in left lobe.-stable. There is no intra or extrahepatic biliary ductal dilatation. Hepatic vasculature is patent. The gallbladder is present. The spleen, and adrenal glands are unremarkable. Pancreas appears bulky and shows moderateperipancreatic fat stranding and fluid collection - suggestive of acute pancreatitis. Mild reactive inflammatory wall thickening is noted involving gastric antrum, pylorus and duodenum. Minimal free fluid is noted in bilateral paracolic gutter and in pelvis. The kidneys are normal in size and attenuation. There is no hydronephrosis or perinephric fat stranding. No renal calculi or renal masses are identified. The ureters are normal in caliber and no ureteral calculi are seen. The bladder is normal in contour. Pelvic viscera are unremarkable. No imaging evidence of appendicitis. Abdominal and pelvic vasculature is patent. No aggressive appearing osseous lesions are identified. Diffuse atherosclerotic calcification is noted involving aorta iliac arteries. IMPRESSION: Acute edematous pancreatitis as described. No obvious necrotic component.-new finding. No obvious vascular complication.. Mild reactive inflammatory wall thickening is noted involving gastric antrum, pylorus and duodenum.-new finding. Minimal free fluid is noted in bilateral paracolic gutter and in pelvis.-new finding. Hepatomegaly with hepatic steatosis. -stable. Electronically signed by Bobo Merino 05-09-2025 02:49 AM
--- NOTE | 2025-05-09 02:54 | CT Scan Report ---
EXAM: CT angio chest PE protocol CLINICAL HISTORY: PE TECHNIQUE: Contiguous axial images were obtained from the neck base through the upper abdomen following intravenous administration of iodinated contrast material. Angiographic images were processed, 3D MIP images were acquired for interpretation. If IV contrast material had not been administered, the likelihood of detecting abnormalities relevant to the patient's condition would have been substantially decreased. Coronal and sagittal 3-D MIPs were likewise performed and indicated to increase the sensitivity of detectin diffuse clinically relevant pathology. CT scan was performed according to ALARA (as low as reasonably achievable). COMPARISON: None. FINDINGS: Few thin walled cyst is noted in bilateral upper lobes with surrounding pleural thickening and fibroatelectasis. Adequate contrast bolus without evidence of pulmonary embolism. The central airways are patent. No pleural effusion. The heart, aorta, and pulmonary arteries are of normal size and configuration. There are no appreciable coronary artery and aortic atherosclerotic calcifications. No pericardial effusion is identified. The thyroid is unremarkable. No mediastinal, hilar, or axillary lymphadenopathy is noted. No suspicious lytic or sclerotic osseous lesions are identified. IMPRESSION: 1. No evidence of pulmonary embolism. Few thin walled cyst is noted in bilateral upper lobes with surrounding pleural thickening and fibroatelectasis. Electronically signed by Bobo Merino 05-09-2025 02:53 AM
--- NOTE | 2025-05-09 03:08 | History & Physical Report ---
Date of Service May 09, 2025 Assessment & Plan (1) Asymptomatic hypertensive urgency: Plan: Assessment and plan below following discussion of case with ED provider and reviewing patient history/pertinent normal/abnormal diagnostic test results. Hypertensive urgency secondary to acute pancreatitis Unclear etiology for now Acute on chronic hyponatremia secondary to illness hx MASLD GERD, on Pepcid seizure disorder, stable on regimen Hyperglycemia rule out DM past tobacco abuse Admit to med/tele given uncontrolled BP IV Lopressor 1 dose now Analgesia, bowel rest GI consult re: pancreatitis Recheck serum sodium after fluid boluses administered at the ER Check hemoglobin A1c DVT prophylaxis. Lovenox subcu Full code Text document was generated using [employer] voice recognition software. It may contain grammatical or spelling errors. Kindly contact undersigned for clarification of any documentation item in question. History of Present Illness Chief Complaint: Abdominal pain Primary Care Provider: Tamiko Beltran DO History obtained from patient and records. Medical history significant for hypertension, MASLD, GERD, chronic hyponatremia, seizure disorder, mood disorder, past tobacco abuse. Last confinement 2021 for acute on chronic hyponatremia secondary to gastroenteritis. Patient seen at the ER 3 days ago for left-sided rib pain without recollection of trauma. Patient discharged home after negative workup. Patient later felt rib pain go to her upper belly. Nausea symptoms without vomiting. No chest pain, no SOB. No recent EtOH intake. Highest SBP of 170s documented at the ER. 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 Allergies Allergy/AdvReac Type Severity Reaction Status Date / Time ceftriaxone Allergy Unknown UNKNOWN ON Verified 05/09/25 03:13 [employer] [place] MED LIST nickel AdvReac Severe SEE COMMENT Verified 05/09/25 03:13 verapamil AdvReac Severe SEVERE Verified 05/09/25 03:13 DIZZINESS, NEUROPATHY IN LEGS ciprofloxacin [From Cipro] AdvReac Intermediate NUMBNESS Verified 05/09/25 03:13 IN ABDOMEN & HANDS gabapentin AdvReac Intermediate Abdominal Verified 05/09/25 03:13 Pain levofloxacin AdvReac Intermediate NEURO Verified 05/09/25 03:13 COMPLICATIONS PER [facility] Home Medications Medication Instructions Recorded Confirmed Type lamotrigine 100 mg tablet 100 mg PO BID 02/25/19 05/09/25 History (Lamictal) omeprazole 40 mg capsule,delayed 40 mg PO BID 12/22/19 05/09/25 History release metoprolol succinate 50 mg 75 mg PO QAM 04/17/20 05/09/25 History tablet,extended release 24 hr aspirin 81 mg tablet,delayed 81 mg PO DAILY 05/06/25 05/09/25 History release famotidine 20 mg tablet 20 mg PO HS 05/06/25 05/09/25 History folic acid 1 mg tablet 1 mg PO DAILY 05/06/25 05/09/25 History lidocaine 5 % topical patch 1 patch transdermal Q12H PRN Pain 05/06/25 05/09/25 History metoprolol succinate 50 mg 50 mg PO QPM 05/06/25 05/09/25 History tablet,extended release 24 hr oxycodone 5 mg tablet 5 mg PO Q8H PRN pain #15 tabs 05/06/25 05/09/25 Rx vit no.95-ferrous 1 tab PO DAILY 05/06/25 05/09/25 History fumarate 28 mg-folic acid 800 mcg tablet () sodium chloride 1,000 mg soluble 1,000 mg PO DAILY 05/06/25 05/09/25 History tablet sucralfate 100 mg/mL oral 10 ml PO TID PRN Heartburn 05/06/25 05/09/25 History suspension Past Med/Surg History Problem List (Updated 05/09/25 @ 04:20 by Mike Yusuf MD) Asymptomatic hypertensive urgency Pancreatitis (Acute) Rib pain on left side (Acute) Hyponatremia Nausea & vomiting (Acute) Acute hyponatremia (Acute) Acute hypokalemia (Acute) Abnormal ECG (Acute) Painful orthopaedic hardware Encounter for pre-operative examination Fever (Acute 03/08/14) SOB (shortness of breath) (Acute 03/08/14) Tachycardia (Acute 03/08/14) Pneumonia (Acute 03/08/14) Fever (Acute) SOB (shortness of breath) (Acute) Tachycardia (Acute) Pneumonia (Acute) Trimalleolar fracture of ankle, open (Acute) Encounter for pre-operative examination Fall (Acute) Nausea & vomiting Nondisplaced fracture of lateral malleolus of left fibula, subsequent encounter for open fracture type I or II with nonunion Retained orthopedic hardware Cutaneous abscess of left ankle Medical History Exercise-induced asthma as teenager Type 2 diabetes mellitus monitoring without definitive diagnosis per pt, expresses elevated A1cs were occurring at time of significant infection in past Frequent PVCs stable per most recent [facility] cardio note Gastric ulcer History of benign breast biopsy Deafness in right ear Chronic diarrhea GERD (gastroesophageal reflux disease) controlled, stable per pt Acute renal failure Hypokalemia Hyponatremia SVT (supraventricular tachycardia) metoprolol for this > follows with Randy Sanchez Tobacco abuse History -- quit 2014. Epilepsy last episode 2005 > doesn't see neuro anymore, PCP manages; denies any seizure activity since 2005 Surgical History History of anesthesia reaction aggression when coming out of anesthesia > has been told has a small airway but has never had complication with intubation History of breast biopsy right > benign History of dilatation and curettage several History of ankle surgery Left Open Ankle Fracture Incision and Drainage, Left Open Ankle Fracture Open Reduction Internal Fixation 12/22/2019: Grade 1 view, MAC#3, ETT#7.0 atraumatic x 1. No issues per anesthesia postop progress note. Left ankle revision/autograft application 09/28/2020: LMA#4. No issues per anesthesia postop progress note. History of arthroscopy left knee x5 History of esophagogastroduodenoscopy (EGD) History of colonoscopy History of colon resection ascending -- large polyp removed during colo, but per patient caused perforation requiring ex-lap and hemicolectomy. Hx of external ear surgery as kid History of tooth extraction Hx of cholecystectomy Hx of appendectomy S/P ACL repair left knee Family History Uncle Colon cancer Other No family history of adverse response to anesthesia Social History Smoking Status: Current every day smoker Tobacco Type: Cigarettes Second Hand Exposure: Yes; Do You Dip or Chew Tobacco: No; Hx Alcohol Use: No Hx Substance Use: No Preferred Language: Ethiopian Communication Ability: Effective Traffic Attendant Required: No Beliefs That Will Affect Care: None marital status: / Current Living Situation: Other Current Living Situation Comment: with her child Feels Safe at Home: Yes Assistive Devices: Cane Review of Systems Review of Systems: As per HPI, all other systems reviewed and negative Physical Exam Physical Exam: GENERAL: Comfortable, pleasant, slightly hard of hearing, no respiratory distress SKIN: Normal color, warm HEENT: [place] palpebral conjunctivae, no ptosis, dry buccal mucosa NECK : Supple, no tenderness CHEST : CTA, no tenderness HEART : RRR, no obvious murmurs ABDOMEN: Some distention, epigastric tenderness EXTREMITIES : No LE swelling/tenderness, palpable pulses, no other conspicuous deformities noted NEUROLOGIC : Coherent, no facial asymmetry, no other gross focality Results & Data Results & Data Vital Signs (Past 12 Hours) Vital Signs Temp Pulse Resp BP Pulse Ox O2 Del Method 05/09/25 01:39 97 H 26 H 94 05/09/25 01:00 92 H 14 173/101 H 96 05/09/25 00:45 109 H 21 168/87 H 97 05/09/25 00:23 Room Air 05/09/25 00:12 36.5 C 95 H 19 158/85 H 98 Room Air Laboratory Results Laboratory Results WBC 13.42 K/ul (4.8-10.8) H 05/09/25 00:35 RBC 4.00 M/uL (4.20-5.40) L 05/09/25 00:35 Hgb 15.6 g/dL (12.0-16.0) 05/09/25 00:35 Hct 43.1 % (37.0-47.0) 05/09/25 00:35 MCV 107.8 fL (80.0-100.0) H 05/09/25 00:35 MCH 39.0 pg (25.0-34.0) H 05/09/25 00:35 MCHC 36.2 g/dL (32.0-36.0) H 05/09/25 00:35 RDW Std Deviation 51.2 fL (36.4-46.3) H 05/09/25 00:35 RDW Coeff of Gabriel 12.7 % (11.5-14.5) 05/09/25 00:35 Plt Count 130 K/uL (130-400) 05/09/25 00:35 MPV 11.4 fL (9.4-12.4) 05/09/25 00:35 Immature Gran % (Auto) 0.4 % 05/09/25 00:35 Neut % (Auto) 82.9 % 05/09/25 00:35 Lymph % (Auto) 10.5 % 05/09/25 00:35 Wright % (Auto) 5.9 % 05/09/25 00:35 Eos % (Auto) 0.2 % 05/09/25 00:35 Baso % (Auto) 0.1 % 05/09/25 00:35 Neut # (Auto) 11.11 K/uL (1.40-6.50) H 05/09/25 00:35 Lymph # (Auto) 1.41 K/uL (1.20-3.40) 05/09/25 00:35 Wright # (Auto) 0.79 K/uL (0.11-0.59) H 05/09/25 00:35 Eos # (Auto) 0.03 K/uL (0.00-0.50) 05/09/25 00:35 Baso # (Auto) 0.02 K/uL (0.00-0.20) 05/09/25 00:35 Immature Gran # (Auto) 0.06 K/uL (0.01-0.20) 05/09/25 00:35 Toxic Vacuolation 1+ 05/09/25 00:35 Platelet Estimate Decreased (Normal) L 05/09/25 00:35 Polychromasia 1+ 05/09/25 00:35 Sodium 128 mmol/L (136-145) L 05/09/25 00:35 Potassium 4.2 mmol/L (3.5-5.1) 05/09/25 00:35 Chloride 95 mmol/L (98-107) L 05/09/25 00:35 Carbon Dioxide 23 mmol/L (21-32) 05/09/25 00:35 Anion Gap 10 (3-11) 05/09/25 00:35 BUN 5 mg/dl (6-23) L 05/09/25 00:35 Creatinine 0.72 mg/dl (0.6-1.2) 05/09/25 00:35 Est Cr Clr Drug Dosing Not Reportable 05/09/25 00:35 eGFR 98.07 05/09/25 00:35 BUN/Creatinine Ratio 6.9 (10-20) L 05/09/25 00:35 Glucose 119 mg/dl (70-99(Fasting)) H 05/09/25 00:35 Calcium 9.3 mg/dl (8.6-10.3) 05/09/25 00:35 Magnesium 2.0 mg/dl (1.7-2.4) 05/09/25 00:35 Total Bilirubin 1.0 mg/dl (0.2-1.0) 05/09/25 00:35 AST 30 U/L (13-39) 05/09/25 00:35 ALT 21 U/L (7-52) 05/09/25 00:35 Alkaline Phosphatase 103 U/L (34-104) 05/09/25 00:35 Troponin I High Sens < 2.3 pg/ml (0-14) 05/09/25 00:35 Total Protein 7.7 gm/dl (6.0-8.3) 05/09/25 00:35 Albumin 4.3 gm/dl (3.4-5.0) 05/09/25 00:35 Globulin 3.4 gm/dl (2.5-4.0) 05/09/25 00:35 Albumin/Globulin Ratio 1.3 (0.9-2) 05/09/25 00:35 Triglycerides 81 mg/dl (0-150) 05/09/25 00:35 Lipase 1108 U/L (11-82) H 05/09/25 00:35 Urine Color Yellow 05/09/25 00:50 Urine Appearance Clear (Clear) 05/09/25 00:50 Urine pH 8.0 (4.5-7.5) H 05/09/25 00:50 Ur Specific Many 1.013 (1.000-1.030) 05/09/25 00:50 Urine Protein 1+ (Negative) H 05/09/25 00:50 Urine Glucose (UA) Negative (Negative) 05/09/25 00:50 Urine Ketones 1+ (Negative) H 05/09/25 00:50 Urine Blood Negative (Negative) 05/09/25 00:50 Urine Nitrite Negative (Negative) 05/09/25 00:50 Urine Bilirubin Negative (Negative) 05/09/25 00:50 Urine Urobilinogen Negative (Negative) 05/09/25 00:50 Ur Leukocyte Esterase Trace (Negative) H 05/09/25 00:50 Urine WBC (Auto) 0-5 /hpf (0-5) 05/09/25 00:50 Urine RBC (Auto) 0-2 /hpf (0-2) 05/09/25 00:50 U Hyaline Cast (Auto) 0-2 /lpf (0-2) 05/09/25 00:50 U Epithel Cells (Auto) 0-2 /hpf (0-2) 05/09/25 00:50 Urine Bacteria (Auto) None Seen (None Seen) 05/09/25 00:50 Urine Comment 05/09/25 00:50 Ethyl Alcohol mg/dL < 10.0 mg/dl (<10.0) 05/09/25 00:35 Impressions Chest CTA 05/09/25 00:23 EXAM: CT angio chest PE protocol CLINICAL HISTORY: PE TECHNIQUE: Contiguous axial images were obtained from the neck base through the upper abdomen following intravenous administration of iodinated contrast material. Angiographic images were processed, 3D MIP images were acquired for interpretation. If IV contrast material had not been administered, the likelihood of detecting abnormalities relevant to the patient's condition would have been substantially decreased. Coronal and sagittal 3-D MIPs were likewise performed and indicated to increase the sensitivity of detectin diffuse clinically relevant pathology. CT scan was performed according to ALARA (as low as reasonably achievable). COMPARISON: None. FINDINGS: Few thin walled cyst is noted in bilateral upper lobes with surrounding pleural thickening and fibroatelectasis. Adequate contrast bolus without evidence of pulmonary embolism. The central airways are patent. No pleural effusion. The heart, aorta, and pulmonary arteries are of normal size and configuration. There are no appreciable coronary artery and aortic atherosclerotic calcifications. No pericardial effusion is identified. The thyroid is unremarkable. No mediastinal, hilar, or axillary lymphadenopathy is noted. No suspicious lytic or sclerotic osseous lesions are identified. IMPRESSION: 1. No evidence of pulmonary embolism. Few thin walled cyst is noted in bilateral upper lobes with surrounding pleural thickening and fibroatelectasis. Electronically signed by Bobo Merino 05-09-2025 02:53 AM Abdomen/Pelvis CT 05/09/25 00:24 EXAM: CT abd pelvis IV con only CLINICAL HISTORY: severe abd pain TECHNIQUE: Contiguous axial images were obtained from the level of the diaphragm to the pubic symphysis with intravenous contrast. Coronal and sagittal reconstructions were likewise performed and indicated to increase the sensitivity for detecting clinically relevant pathology. If IV contrast material had not been administered, the likelihood of detecting abnormalities relevant to the patient's condition would have been substantially decreased. CT scan was performed according to ALARA (as low as reasonably achievable). COMPARISON: 19:22:14 [employer] . FINDINGS: The visualized lung bases are clear. The liver is normal in size and reduced attenuation. Tiny cyst noted in left lobe.-stable. There is no intra or extrahepatic biliary ductal dilatation. Hepatic vasculature is patent. The gallbladder is present. The spleen, and adrenal glands are unremarkable. Pancreas appears bulky and shows moderateperipancreatic fat stranding and fluid collection - suggestive of acute pancreatitis. Mild reactive inflammatory wall thickening is noted involving gastric antrum, pylorus and duodenum. Minimal free fluid is noted in bilateral paracolic gutter and in pelvis. The kidneys are normal in size and attenuation. There is no hydronephrosis or perinephric fat stranding. No renal calculi or renal masses are identified. The ureters are normal in caliber and no ureteral calculi are seen. The bladder is normal in contour. Pelvic viscera are unremarkable. No imaging evidence of appendicitis. Abdominal and pelvic vasculature is patent. No aggressive appearing osseous lesions are identified. Diffuse atherosclerotic calcification is noted involving aorta iliac arteries. IMPRESSION: Acute edematous pancreatitis as described. No obvious necrotic component.-new finding. No obvious vascular complication.. Mild reactive inflammatory wall thickening is noted involving gastric antrum, pylorus and duodenum.-new finding. Minimal free fluid is noted in bilateral paracolic gutter and in pelvis.-new finding. Hepatomegaly with hepatic steatosis. -stable. Electronically signed by Bobo Merino 05-09-2025 02:49 AM Diagnostic Findings EKG as per my interpretation :Rate 90, NSR, normal axis, nonspecific T wave abnormalities
[2025-05-09] MEDS ORDERED: LORazepam 0.5 MG TAB PO PRN (03:10)
[2025-05-09] MEDS ORDERED: MoRPHine SULFATE 4 MG/ML 1 ML CARP\\VIAL IV PRN (03:10)
[2025-05-09] MEDS ORDERED: PROMETHAZINE 6.25 MG/50.25 ML BAG IV PRN (03:10)
[2025-05-09] MEDS ORDERED: SUCRALFATE 1 GM/10 ML UDC PO PRN (03:46)
[2025-05-09] MEDS: METOPROLOL TARTRATE 1 MG/ML VIAL IV STA (03:58)
[2025-05-09 06:01] VITALS: RESP 18
[2025-05-09 07:41] LABS: Hemoglobin A1C 5.9 % (4.5-5.6)
[2025-05-09] MEDS: METOPROLOL SUCC 25MG EXT REL TAB PO SCH (08:31)
[2025-05-09] MEDS: ENOXAPARIN INJ 40 MG/0.4 ML SYR SQ SCH (08:31)
[2025-05-09] MEDS: lamoTRIgine 100 MG TAB PO SCH (08:31)
[2025-05-09] MEDS: ASPIRIN 81 MG ECTAB PO SCH (08:31)
[2025-05-09] MEDS: FOLIC ACID 1 MG TAB PO SCH (08:31)
--- NOTE | 2025-05-09 08:55 | Gastrointestinal Consultation ---
Date of Consultation May 09, 2025 Assessment & Plan (1) Pancreatitis: Plan [id number] with h/o esophagitis, colonic polyps is seen today for her first episode of pancreatitis. Lipase is 1180. CT scan is negative for obvious signs of stone or liver issues. No signs of fluid collection. TG normal. No alcohol use reported. No new medications. (1) Pancreatitis - TG normal. Denies alcohol use. No recent medications. - ? Idiopathic vs. Autoimmune. ? Under reporting alcohol (hx hyponatremia, on folate, elevated MCV). - Recommend ongoing supportive care with IVF. Advance diet as tolerated to low fat diet x 6 weeks. - Continue to avoid alcohol and tobacco products. - We'll check IgG Subclasses to assess for autoimmune pancreatitis. - Would recommend f/u CT scan with out patient GI follow up in 6 weeks. If pancreatitis findings fail to resolve - the may consider EUS evaluation. -Thank you for allowing us to participate in the care of this patient. Please call with any acute changes, questions or concerns. Please see addendum below with additional recommendation from my supervising physician. Supervising Physician Co-Signing Physician Notes Reviewed above. Discussed with PA. Talk to patient and examined her at the bedside. Acute pancreatitis without clear etiology. Patient adamantly denies regular alcohol ingestion states she drinks 1 time per year on the anniversary of her 's . That would be in June/she has had a cholecystectomy. Her liver tests were normal on this admission. Somewhat unexplained there is a very high MCV level. High MCV levels can be associated with B12 or folate deficiency or alcohol. Check folate and B12 levels. The pancreas also appeared somewhat lobulated. Rule out autoimmune pancreatitis. Clinically she is feeling improved. Gradually increase diet. Discharge when able. She should have a follow-up CT scan done in 6 weeks or so to document resolution of these pancreatic changes. History of Present Illness Reason for Consultation: Pancreatitis Attending Physician: Buzz Bryant DO History of Present Illness [id number] with of Epilepsy, T2DM (diet controlled), Esophagitis, polyps is seen today for pancreatitis. She reports that she developed symptoms of epigastric pain radiating to the back with N/V starting on Thursday morning which progressed leading her to come to ER early this morning. ER work up reviewed revealing a Lipase of 1108. LFTs [address] CT negative for liver lesions or biliary dilatation. Fat stranding noted around the duodenum and Pancrease. No fluid collections. She's been made NPO. Treated with supportive measures and IVF. Pain is improving. She denies any previous history of pancreatitis. She denies any new medications. Social History - Denies tobacco, alcohol or drug use. Family history - She denies any family history of liver or pancreatic issues. Surgical History - Gets EGD and [place] [facility] [place]. Believes last one was 4 years ago and she's due next year. Records requested. H/O CCT and Appendectomy. Pertinent diagnostics - Lipase 1108 LFTs normal BUN 5 Cr 0.72 WBC 13.42 Hgb 15.6 Hct 43.1 Plt 130 TG - 81. CT abd/pelvis - No biliary dilatation. No Liver lesions. Fat stranding in duodenum and pancreas consistent with interstitial pancreatitis. No fluid collections or local complications noted. She was also noted to have inflammatory changes in antral stomach. Per [facility] [place] [facility] notes in 2020. EGD 2019 - Esophagitis, antral ulcer, duodenitis EGD 2017 - LA grade B esophagitis, no stricture EGD 2016 - gastritis , HH Colonoscopy 2016 - polyps EGD 2014 - esophagitis EGD 2014 - Esophagitis, stricture Colonoscopy 2011 - Normal Colonoscopy 2007 - Unremarkable . Allergies Allergy/AdvReac Type Severity Reaction Status Date / Time ceftriaxone Allergy Unknown UNKNOWN ON Verified 05/09/25 03:13 t3n [facility] MED LIST nickel AdvReac Severe SEE COMMENT Verified 05/09/25 03:13 verapamil AdvReac Severe SEVERE Verified 05/09/25 03:13 DIZZINESS, NEUROPATHY IN LEGS ciprofloxacin [From Cipro] AdvReac Intermediate NUMBNESS Verified 05/09/25 03:13 IN ABDOMEN & HANDS gabapentin AdvReac Intermediate Abdominal Verified 05/09/25 03:13 Pain levofloxacin AdvReac Intermediate NEURO Verified 05/09/25 03:13 COMPLICATIONS PER t3n [facility] Home Medications Medication Instructions Recorded Confirmed Type lamotrigine 100 mg tablet 100 mg PO BID 02/25/19 05/09/25 History (Lamictal) omeprazole 40 mg capsule,delayed 40 mg PO BID 12/22/19 05/09/25 History release metoprolol succinate 50 mg 75 mg PO QAM 04/17/20 05/09/25 History tablet,extended release 24 hr aspirin 81 mg tablet,delayed 81 mg PO DAILY 05/06/25 05/09/25 History release famotidine 20 mg tablet 20 mg PO HS 05/06/25 05/09/25 History folic acid 1 mg tablet 1 mg PO DAILY 05/06/25 05/09/25 History lidocaine 5 % topical patch 1 patch transdermal Q12H PRN Pain 05/06/25 05/09/25 History metoprolol succinate 50 mg 50 mg PO QPM 05/06/25 05/09/25 History tablet,extended release 24 hr oxycodone 5 mg tablet 5 mg PO Q8H PRN pain #15 tabs 05/06/25 05/09/25 Rx vit no.95-ferrous 1 tab PO DAILY 05/06/25 05/09/25 History fumarate 28 mg-folic acid 800 mcg tablet () sodium chloride 1,000 mg soluble 1,000 mg PO DAILY 05/06/25 05/09/25 History tablet sucralfate 100 mg/mL oral 10 ml PO TID PRN Heartburn 05/06/25 05/09/25 History suspension Patient History Medical History Exercise-induced asthma as teenager Type 2 diabetes mellitus monitoring without definitive diagnosis per pt, expresses elevated A1cs were occurring at time of significant infection in past Frequent PVCs stable per most recent S cardio note Gastric ulcer History of benign breast biopsy Deafness in right ear Chronic diarrhea GERD (gastroesophageal reflux disease) controlled, stable per pt Acute renal failure Hypokalemia Hyponatremia SVT (supraventricular tachycardia) metoprolol for this > follows with Randy Sanchez Tobacco abuse History -- quit 2014. Epilepsy last episode 2005 > doesn't see neuro anymore, PCP manages; denies any seizure activity since 2005 Surgical History History of anesthesia reaction aggression when coming out of anesthesia > has been told has a small airway but has never had complication with intubation History of breast biopsy right > benign History of dilatation and curettage several History of ankle surgery Left Open Ankle Fracture Incision and Drainage, Left Open Ankle Fracture Open Reduction Internal Fixation 12/22/2019: Grade 1 view, MAC#3, ETT#7.0 atraumatic x 1. No issues per anesthesia postop progress note. Left ankle revision/autograft application 09/28/2020: LMA#4. No issues per anesthesia postop progress note. History of arthroscopy left knee x5 History of esophagogastroduodenoscopy (EGD) History of colonoscopy History of colon resection ascending -- large polyp removed during colo, but per patient caused perforation requiring ex-lap and hemicolectomy. Hx of external ear surgery as kid History of tooth extraction Hx of cholecystectomy Hx of appendectomy S/P ACL repair left knee Family History Uncle Colon cancer Other No family history of adverse response to anesthesia Social History Smoking Status: Former smoker Tobacco Type: Cigarettes Second Hand Exposure: Yes; Do You Dip or Chew Tobacco: No; Hx Alcohol Use: No Hx Substance Use: No Preferred Language: Mohawk Communication Ability: Effective Electroencephalograph Technician Required: No Beliefs That Will Affect Care: None marital status: / Current Living Situation: Family Current Living Situation Comment: with her child Other Information That Helps Us Care for You: No Feels Safe at Home: Yes Safety Concerns: Feels Safe At This Time Assistive Devices: Glasses Assistive Devices Comment: reading glasses. Review of Systems Review of Systems: See HPI Physical Exam Physical Exam: Constitutional: NAD. Alert. Answering questions appropriately. Respiratory: Breathing is even, non-labored. Lungs sigala are clear to auscultation anteriorly. Cardiovascular: Regular Rate and Rhythm, no murmurs, rubs or gallops appreciated. Gastrointestinal (Abdomen): Normoactive bowel sounds x4, soft, mild tenderness in epigastric area. No rebound or guarding. Musculoskeletal: Lying in bed comfortably. No peripheral edema. Results & Data Vital Signs (Past 12 Hours) Vital Signs Temp Pulse Pulse Pulse Resp BP BP 05/09/25 07:32 98.1 F 91 H 18 120/84 05/09/25 04:47 05/09/25 04:47 97.9 F 97 H 18 150/87 H 05/09/25 04:46 97 H 150/87 H 05/09/25 03:58 99 H 171/106 H 05/09/25 03:57 96 H 16 171/106 H 05/09/25 03:30 95 H 19 162/93 H 05/09/25 03:09 98 H 18 176/108 H 05/09/25 01:39 97 H 26 H 05/09/25 01:00 92 H 14 173/101 H 05/09/25 00:45 109 H 21 168/87 H 05/09/25 00:23 05/09/25 00:12 97.7 F 95 H 19 158/85 H Pulse Ox O2 Del Method 05/09/25 07:32 91 Room Air 05/09/25 04:47 Room Air 05/09/25 04:47 98 Room Air 05/09/25 04:46 05/09/25 03:58 05/09/25 03:57 96 Room Air 05/09/25 03:30 93 Room Air 05/09/25 03:09 100 Room Air 05/09/25 01:39 94 05/09/25 01:00 96 05/09/25 00:45 97 05/09/25 00:23 Room Air 05/09/25 00:12 98 Room Air PG Care Time/CCT Total # of Minutes Spent Total Time Spent with Patient: Total time spent is greater than 50% in coordination of care (as documented) at patient's floor/unit and/or counseling patient: Coding Level of Care Code 49247 IN/OBS CONSULT LVL 3,45M Diagnoses Pancreatitis K85.90 Acute pancreatitis complication: unspecified Chronicity: acute Pancreatitis type: unspecified pancreatitis type (1) Pancreatitis Acute pancreatitis complication: unspecified Chronicity: acute Pancreatitis type: unspecified pancreatitis type Qualified Code(s): K85.90 - Acute pancreatitis without necrosis or infection, unspecified
--- NOTE | 2025-05-09 12:35 | Hospitalist Progress Note ---
Date of Service May 09, 2025 Assessment & Plan (1) Acute pancreatitis: Plan: First episode-idiopathic versus autoimmune (2) Hypertension, uncontrolled: (3) Hyponatremia: (4) Prediabetes: Plan Patient with first episode of pancreatitis, does not seem to be due to triglycerides or medications. Patient denies alcohol use. Question if this is idiopathic versus autoimmune. Reviewed GI consultation Continue hydration, clear liquid diet Patient had acute hypertensive response due to uncontrolled pain. Blood pressure now very well-controlled on her usual meds, continue to monitor Hemoglobin A1c 5.9%, prediabetes, will need outpatient follow-up, no medical intervention at this time Follow labs in a.m. Admission and Anticipated Discharge Date Admission Date: May 09, 2025 Subjective Patient reports abdominal pain feeling somewhat better. Physical Exam Physical Exam: Constitutional: Alert, nontoxic HEENT: Mucous membranes moist. Lungs: Clear to auscultation, decreased, no wheezes rales or rhonchi CV: S1-S2, regular Abdomen: Soft, upper quadrant tenderness with mild guarding, no rigidity or rebound Extremities: No significant edema Neuro: No focal deficits Psych: Cooperative, normal mood Results & Data Results & Data Vital Signs (Past 12 Hours) Vital Signs Temp Pulse Pulse Pulse Resp BP BP 05/09/25 11:58 103 H 05/09/25 11:14 36.5 C 95 H 18 107/76 05/09/25 07:32 36.7 C 91 H 18 120/84 05/09/25 04:47 05/09/25 04:47 36.6 C 97 H 18 150/87 H 05/09/25 04:46 97 H 150/87 H 05/09/25 03:58 99 H 171/106 H 05/09/25 03:57 96 H 16 171/106 H 05/09/25 03:30 95 H 19 162/93 H 05/09/25 03:09 98 H 18 176/108 H 05/09/25 01:39 97 H 26 H 05/09/25 01:00 92 H 14 173/101 H 05/09/25 00:45 109 H 21 168/87 H Pulse Ox O2 Del Method 05/09/25 11:58 05/09/25 11:14 95 Room Air 05/09/25 07:32 91 Room Air 05/09/25 04:47 Room Air 05/09/25 04:47 98 Room Air 05/09/25 04:46 05/09/25 03:58 05/09/25 03:57 96 Room Air 05/09/25 03:30 93 Room Air 05/09/25 03:09 100 Room Air 05/09/25 01:39 94 05/09/25 01:00 96 05/09/25 00:45 97 Diagnostic Findings Reviewed imaging, laboratory and diagnostic studies. Pertinent findings as below. Reviewed admitting labs Hemoglobin A1c 5.9% TSH 1.1 Sodium 132 Triglycerides 81
[2025-05-09] MEDS ORDERED: ONDANSETRON INJ 2 MG/ML 2 ML VIAL IV PRN (12:37)
[2025-05-09] MEDS: METOPROLOL SUCC 50MG EXT REL TAB PO SCH (20:13)
[2025-05-09] MEDS: FAMOTIDINE 20 MG TAB PO SCH (20:15)
[2025-05-09] MEDS: REMOVE LIDODERM PATCH SCH (20:16)
--- NOTE | 2025-05-09 21:53 | Electrocardiogram Report ---
Test Reason : Blood Pressure : */* mmHG Vent. Rate : 90 BPM Atrial Rate : 90 BPM P-R Int : 198 ms QRS Dur : 70 ms QT Int : 346 ms P-R-T Axes : 78 56 41 degrees QTcB Int : 423 ms Normal sinus rhythm Nonspecific T wave abnormality Abnormal ECG When compared with ECG of 06-May-2025 21:04, T wave inversion less evident in Anterior leads Confirmed by Jose Lopez ([id number]) on 05/09/2025 9:53:34 PM Referred By: REFERRED SELF Confirmed By: Jose Lopez
[2025-05-09] MEDS: POLYETHYLENE (MIRALAX) 17 GM PACK PO PRN (23:23)
[2025-05-09] MEDS: DOCUSATE SODIUM/SENNA 50/8.6MG TAB PO SCH (23:23)
[2025-05-10 07:14] LABS: Hematocrit (blood only) 36.9 % (37.0-47.0); Hemoglobin 12.9 g/dL (12.0-16.0); Mean Corpuscular Hemoglobin 38.7 pg (25.0-34.0); Mean Corpuscular Volume 110.8 fL (80.0-100.0); Platelet Count 147 K/uL (130-400); RDW Standard Deviation 52.9 fL (36.4-46.3); Red Blood Count 3.33 M/uL (4.20-5.40); White Blood Count 9.99 K/ul (4.8-10.8)
[2025-05-10] MEDS: ACETAMINOPHEN 500 MG TAB PO PRN (07:29)
[2025-05-10 07:30] LABS: Immature Granulocytes # (auto) 0.03 K/uL (0.01-0.20); Immature Granulocytes % (auto) 0.3 %; Macrocytosis Present
[2025-05-10 07:37] LABS: Alanine Aminotransferase 16 U/L (7-52); Albumin Globulin Ratio 1.3 (0.9-2); Albumin Level 3.7 gm/dl (3.4-5.0); Alkaline Phosphatase 76 U/L (34-104); Anion Gap 6 (3-11); Bilirubin,Total 0.9 mg/dl (0.2-1.0); Blood Urea Nitrogen 5 mg/dl (6-23); Calcium 8.6 mg/dl (8.6-10.3); Carbon Dioxide 27 mmol/L (21-32); Chloride 96 mmol/L (98-107); Creatinine Clr Calc Pharmacy 79.6 ml/min; Globulin 2.9 gm/dl (2.5-4.0); Glucose 90 mg/dl (70-99(Fasting)); Sodium 129 mmol/L (136-145); Total Protein 6.6 gm/dl (6.0-8.3)
[2025-05-10 07:52] LABS: Folate (Folic Acid),Ser orPlas 4.74 ng/ml (>5.38)
[2025-05-10 07:53] LABS: Vitamin B12 187.0 pg/ml (180-914)
[2025-05-10 08:55] LABS: Potassium 3.6 mmol/L (3.5-5.1)
[2025-05-10] MEDS: CYANOCOBALAMIN 1000 MCG/ML VIAL IM ONE (10:09)
--- NOTE | 2025-05-10 11:18 | Hospitalist Progress Note ---
Date of Service May 10, 2025 Assessment & Plan (1) Acute pancreatitis: Plan: First episode-idiopathic versus autoimmune (2) Hypertension, uncontrolled: (3) Hyponatremia: (4) Prediabetes: Plan Per previous provider w/addendum: Medical history significant for hypertension, MASLD, GERD, chronic hyponatremia, seizure disorder, mood disorder, past tobacco abuse. Last confinement 2021 for acute on chronic hyponatremia secondary to gastroenteritis. Patient seen at the ER 3 days ago for left-sided rib pain without recollection of trauma. Patient discharged home after negative workup. Patient with first episode of pancreatitis, does not seem to be due to triglycerides or medications. Patient denies alcohol use. Question if this is idiopathic versus autoimmune. GI consulted - we'll check IgG Subclasses to assess for autoimmune pancreatitis. - Would recommend f/u CT scan with out patient GI follow up in 6 weeks. If pancreatitis findings fail to resolve - the may consider EUS evaluation. Acute pancreatitis without clear etiology. Patient adamantly denies regular alcohol ingestion. Her liver tests were normal on this admission. Somewhat unexplained there is a very high MCV level. High MCV levels can be associated with B12 or folate deficiency or alcohol. Check folate and B12 levels - both levels low and replaced, recommend to cont. supplement The pancreas also appeared somewhat lobulated. Rule out autoimmune pancreatitis. Clinically she is feeling improved. Gradually increase diet. Discharge when able. She should have a follow-up CT scan done in 6 weeks or so to document resolution of these pancreatic changes. Continue hydration, clear liquid diet m--> advance to full liquid Patient had acute hypertensive response due to uncontrolled pain. Blood pressure now very well-controlled on her usual meds, continue to monitor Hemoglobin A1c 5.9%, prediabetes, will need outpatient follow-up, no medical intervention at this time Admission and Anticipated Discharge Date Admission Date: May 09, 2025 Subjective Pt seen in follow up of pancreatitis Currently sitting up in bed in NAD, says her abd. feels better. denies any fever, chills, chest pain, shortness of breath She is inquiring about advancing diet GI also following Found def. in B12, folate, will replace Review of Systems Review of Systems: All systems reviewed & are unremarkable except as noted in Subjective Physical Exam Physical Exam: Constitutional: WD/WN F in NAD HEENT: NC/AT. Mucous membranes moist. Lungs: Clear to auscultation, decreased, no wheezes rales or rhonchi CV: S1-S2, regular Abdomen: Soft, upper quadrant tenderness with mild guarding, no rigidity or rebound Extremities: No significant edema, moves extremities Neuro: awake, alert, answers appropriately, speech fluent, moves extremities Psych: Cooperative, normal mood Results & Data Results & Data Vital Signs (Past 12 Hours) Vital Signs Temp Pulse Resp BP Pulse Ox O2 Del Method 05/10/25 07:25 36.8 C 88 18 113/75 98 Room Air Laboratory Results 05/10/25 05/10/25 05/09/25 Range/Units 08:25 06:25 00:35 WBC 9.99 (4.8-10.8) K/ul RBC 3.33 L (4.20-5.40) M/uL Hgb 12.9 (12.0-16.0) g/dL Hct 36.9 L (37.0-47.0) % MCV 110.8 H (80.0-100.0) fL MCH 38.7 H (25.0-34.0) pg MCHC 35.0 (32.0-36.0) g/dL RDW Std Deviation 52.9 H (36.4-46.3) fL RDW Coeff of Gabriel 13.1 (11.5-14.5) % Plt Count 147 (130-400) K/uL MPV 11.2 (9.4-12.4) fL Immature Gran % (Auto) 0.3 % Neut % (Auto) 68.0 % Lymph % (Auto) 20.1 % Fisher % (Auto) 10.2 % Eos % (Auto) 1.1 % Baso % (Auto) 0.3 % Neut # (Auto) 6.79 H (1.40-6.50) K/uL Lymph # (Auto) 2.01 (1.20-3.40) K/uL Fisher # (Auto) 1.02 H (0.11-0.59) K/uL Eos # (Auto) 0.11 (0.00-0.50) K/uL Baso # (Auto) 0.03 (0.00-0.20) K/uL Immature Gran # (Auto) 0.03 (0.01-0.20) K/uL Macrocytosis Present Sodium 129 L (136-145) mmol/L Potassium 3.6 TNP Chloride 96 L (98-107) mmol/L Carbon Dioxide 27 (21-32) mmol/L Anion Gap 6 (3-11) BUN 5 L (6-23) mg/dl Creatinine 0.71 (0.6-1.2) mg/dl Est Cr Clr Drug Dosing 79.6 ml/min eGFR 99.73 BUN/Creatinine Ratio 7.0 L (10-20) Glucose 90 (70-99(Fasting)) mg/dl Calcium 8.6 (8.6-10.3) mg/dl Total Bilirubin 0.9 (0.2-1.0) mg/dl AST 16 TNP ALT 16 (7-52) U/L Alkaline Phosphatase 76 (34-104) U/L Total Protein 6.6 (6.0-8.3) gm/dl Albumin 3.7 (3.4-5.0) gm/dl Globulin 2.9 (2.5-4.0) gm/dl Albumin/Globulin Ratio 1.3 (0.9-2) Vitamin B12 187 (180-914) pg/ml Folate 4.74 L (>5.38) ng/ml Procalcitonin < 0.02 (0-0.5) ng/ml IgG Pending IgG1 Pending IgG2 Pending IgG3 Pending IgG4 Pending Medications Administered Current Inpatient Medications Acetaminophen (Acetaminophen 500 Mg Tab) 500 mg PO Q6H PRN PRN Reason: fever/pain Stop: 06/08/25 03:09 Last Admin: 05/10/25 07:29 Dose: 500 mg Aspirin (Aspirin 81 Mg Ectab) 81 mg PO DAILY [facility]ST[facility] Stop: 06/08/25 08:59 Last Admin: 05/10/25 08:58 Dose: 81 mg Enoxaparin Sodium (Enoxaparin Inj 40 Mg/0.4 Ml Syr) 40 mg SQ QAM [facility]STON Stop: 06/08/25 08:59 Last Admin: 05/10/25 08:58 Dose: 40 mg Famotidine (Famotidine 20 Mg Tab) 20 mg PO HS TRISTON Stop: 06/08/25 20:59 Last Admin: 05/09/25 20:15 Dose: 20 mg Folic Acid 1 mg/ Syringe 10 mls @ 5 mls/min IV QAM TRISTON Stop: 06/09/25 08:59 Lamotrigine (Lamotrigine 100 Mg Tab) 100 mg PO BID [facility] [place]; Protocol Stop: 06/08/25 08:59 Last Admin: 05/10/25 08:58 Dose: 100 mg Lidocaine (Lidocaine 5% 1 Patch) 1 patch TD DAILY PRN PRN Reason: Pain Stop: 06/08/25 03:45 Lorazepam (Lorazepam 0.5 Mg Tab) 0.5 mg PO TID PRN PRN Reason: Anxiety Stop: 06/08/25 03:09 Metoprolol Succinate (Metoprolol Succ 50mg Ext Rel Tab) 50 mg PO QPM [facility] [place] Stop: 06/08/25 20:59 Last Admin: 05/09/25 20:13 Dose: 50 mg Metoprolol Succinate (Metoprolol Succ 25mg Ext Rel Tab) 75 mg PO QAM [facility] [place] Stop: 06/08/25 08:59 Last Admin: 05/10/25 08:58 Dose: 75 mg Miscellaneous (Remove Lidoderm Patch) 1 each N/A DAILY@2100 [facility] [place] Stop: 06/08/25 20:59 Last Admin: 05/09/25 20:16 Dose: 1 each Ondansetron HCl (Ondansetron Inj 2 Mg/Ml 2 Ml Vial) 4 mg IV Q6H PRN PRN Reason: Nausea And Vomiting Stop: 06/08/25 12:36 Oxycodone HCl (Oxycodone Hcl Ir 5 Mg Tab (Immediate Release)) 5 mg PO Q4H PRN PRN Reason: Moderate Pain (Scale 4, 5, 6) Stop: 05/23/25 03:09 Last Admin: 05/10/25 08:58 Dose: 5 mg Oxycodone HCl (Oxycodone Hcl Ir 5 Mg Tab (Immediate Release)) 10 mg PO Q4H PRN PRN Reason: Severe Pain (Scale 7, 8, 9,10) Stop: 05/23/25 12:36 Last Admin: 05/09/25 23:22 Dose: 10 mg Pantoprazole Sodium (Pantoprazole 40 Mg Tab) 40 mg PO BID [facility] [place] Stop: 06/08/25 08:59 Last Admin: 05/10/25 08:58 Dose: 40 mg Polyethylene Glycol (Polyethylene (Miralax) 17 Gm Pack) 17 gm PO DAILY PRN PRN Reason: Constipation Stop: 06/08/25 23:14 Last Admin: 05/09/25 23:23 Dose: 17 gm Senna/Docusate Sodium (Docusate Sodium/Senna 50/8.6mg Tab) 1 tab PO QAM [facility] Stop: 06/08/25 23:14 Last Admin: 05/10/25 08:58 Dose: 1 tab Sucralfate (Sucralfate 1 Gm/10 Ml Udc) 1 gm PO TID PRN PRN Reason: Heartburn Stop: 06/08/25 03:45
[2025-05-10] MEDS: FOLIC ACID 1 MG in SYRINGE 9.8 ML IV SCH (11:19)
[2025-05-10] MEDS: LACTATED RINGER'S 1,000 ML IV SCH (11:46)
--- NOTE | 2025-05-10 14:22 | Gastroenterology Progress Note ---
Date of Service May 10, 2025 Assessment & Plan (1) Pancreatitis: Plan [id number] with h/o esophagitis, colonic polyps is seen today for her first episode of pancreatitis. Lipase is 1180. CT scan is negative for obvious signs of stone or liver issues. No signs of fluid collection. TG normal. No alcohol use reported. No new medications. (1) Pancreatitis - Mild interstitial. - Triglycerides normal. Denies alcohol use. No recent medications changes. - ? Idiopathic vs. Autoimmune. ? Under reporting alcohol (hx hyponatremia, on folate, elevated MCV). Started on vitamin supplementation. - IgG Subclasses pending for autoimmune pancreatitis. - Recommend ongoing supportive care with IVF. Advance diet as tolerated to low fat diet x 6 weeks. - Continue to avoid alcohol and tobacco products. - Would recommend f/u CT scan with out patient GI follow up in 6 weeks. If pancr eatitis findings fail to resolve - the may consider EUS evaluation. -Thank you for allowing us to participate in the care of this patient. Please call with any acute changes, questions or concerns. Please see addendum below with additional recommendation from my supervising physician. Admission and Anticipated Discharge Date Admission Date: May 09, 2025 Supervising Physician Co-Signing Physician Notes Patient feels much better. States her pain is 80% resolved. Advance diet. Can be discharged home. She has an appoint with Dr. Bustos in May. She can follow-up with him. She should have either an outpatient CT scan to follow- up the pancreatic abnormalities or Dr. Bustos may elect for endoscopic ultrasound as it is available within his group. We continue to await IgG4 levels. Rule out autoimmune pancreatitis. She has significant macrocytosis. B12 appears lowish at 187. Folate is low at 4.74. Recommend both B12 and folate supplementation. Subjective 55yowf with of Epilepsy, T2DM (diet controlled), Esophagitis, polyps is seen today for pancreatitis. (1) Pancreatitis - Interstitial Mild - No end organ damage/local complications. - N/V starting on Thursday morning which progressed leading her to come to ER early this morning. - ER work up reviewed revealing a Lipase of 1108. LFTs un[address] CT negative for liver lesions or biliary dilatation. Fat stranding noted around the duodenum and Pancrease. No fluid collections. - She's been tolerating fluids well. Agreeable to advancing diet. - She has some mild constipation which she just started Miralax for. - She denies any vomiting, diarrhea, melena or hematochezia. She denies any new medications. She denies any previous history of pancreatitis. Social History - Denies tobacco, alcohol or drug use. Family history - She denies any family history of liver or pancreatic issues. Surgical History - Gets EGD and Colonoscopy through [facility]. Believes last one was 4 years ago and she's due next year. Records requested. H/O CCT and Appendectomy. Pertinent diagnostics - Lipase 1108 LFTs normal BUN 5 Cr 0.72 WBC 13.42 Hgb 15.6 Hct 43.1 Plt 130 TG - 81. CT abd/pelvis - No biliary dilatation. No Liver lesions. Fat stranding in duodenum and pancreas consistent with interstitial pancreatitis. No fluid collections or local complications noted. She was also noted to have inflammatory changes in antral stomach. Per [facility] notes in 2020. EGD 2019 - Esophagitis, antral ulcer, duodenitis EGD 2017 - LA grade B esophagitis, no stricture EGD 2016 - gastritis , HH Colonoscopy 2016 - polyps EGD 2014 - esophagitis EGD 2014 - Esophagitis, stricture Colonoscopy 2011 - Normal Colonoscopy 2007 - Unremarkable Review of Systems Review of Systems: See HPI Physical Exam Physical Exam: Constitutional: NAD. Alert. Answering questions appropriately. Respiratory: Breathing is even, non-labored. Lungs sigala are clear to auscultation anteriorly. Cardiovascular: Regular Rate and Rhythm, no murmurs, rubs or gallops appreciated. Gastrointestinal (Abdomen): Normoactive bowel sounds x4, soft, mild tenderness in epigastric area. No rebound or guarding. Musculoskeletal: Lying in bed comfortably. No peripheral edema. Results & Data Results & Data Vital Signs (Past 12 Hours) Vital Signs Temp Pulse Resp BP Pulse Ox O2 Del Method 05/10/25 11:26 Room Air 05/10/25 07:25 98.2 F 88 18 113/75 98 Room Air PG Care Time/CCT Total # of Minutes Spent Total Time Spent with Patient: Total time spent is greater than 50% in coordination of care (as documented) at patient's floor/unit and/or counseling patient: Coding Level of Care Code 99414 SUB INP/OBS CARE 2/35MIN Diagnoses Pancreatitis K85.90 Acute pancreatitis complication: unspecified Chronicity: acute Pancreatitis type: unspecified pancreatitis type (1) Pancreatitis Acute pancreatitis complication: unspecified Chronicity: acute Pancreatitis type: unspecified pancreatitis type Qualified Code(s): K85.90 - Acute pancreatitis without necrosis or infection, unspecified
[2025-05-11] MEDS: LIDOCAINE 5% 1 PATCH TD PRN (05:22)
[2025-05-11 06:29] LABS: Hematocrit (blood only) 32.6 % (37.0-47.0); Hemoglobin 11.3 g/dL (12.0-16.0); Mean Corpuscular Hemoglobin 38.6 pg (25.0-34.0); Mean Corpuscular Volume 111.3 fL (80.0-100.0); Platelet Count 144 K/uL (130-400); RDW Standard Deviation 53.4 fL (36.4-46.3); Red Blood Count 2.93 M/uL (4.20-5.40); White Blood Count 9.55 K/ul (4.8-10.8)
[2025-05-11 06:48] LABS: Alanine Aminotransferase 14.0 U/L (7-52); Albumin Globulin Ratio 1.2 (0.9-2); Albumin Level 3.7 gm/dl (3.4-5.0); Alkaline Phosphatase 73.0 U/L (34-104); Anion Gap 6.0 (3-11); Bilirubin,Total 0.6 mg/dl (0.2-1.0); Blood Urea Nitrogen 3.0 mg/dl (6-23); Calcium 8.7 mg/dl (8.6-10.3); Carbon Dioxide 27.0 mmol/L (21-32); Chloride 98.0 mmol/L (98-107); Creatinine Clr Calc Pharmacy 92.7 ml/min; Globulin 3.0 gm/dl (2.5-4.0); Glucose 85.0 mg/dl (70-99(Fasting)); Lipase 421.0 U/L (11-82); Magnesium 2.0 mg/dl (1.7-2.4); Potassium 4.3 mmol/L (3.5-5.1); Sodium 131.0 mmol/L (136-145); Total Protein 6.7 gm/dl (6.0-8.3)
[2025-05-11] MEDS: CYANOCOBALAMIN (B-12) 500 MCG TABLET PO SCH (07:52)
[2025-05-11 07:57] VITALS: BP 127/88; TEMP 97.3; O2SAT 95
--- NOTE | 2025-05-11 09:05 | Discharge Summary ---
Date of Service May 11, 2025 Admission HPI Per Admitting Provider History obtained from patient and records. Medical history significant for hypertension, MASLD, GERD, chronic hyponatremia, seizure disorder, mood disorder, past tobacco abuse. Last confinement 2021 for acute on chronic hyponatremia secondary to gastroenteritis. Patient seen at the ER 3 days ago for left-sided rib pain without recollection of trauma. Patient discharged home after negative workup. Patient later felt rib pain go to her upper belly. Nausea symptoms without vomiting. No chest pain, no SOB. No recent EtOH intake. Highest SBP of 170s documented at the ER. 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 Admission Exam Per Admitting Provider GENERAL: Comfortable, pleasant, slightly hard of hearing, no respiratory distress SKIN: Normal color, warm HEENT: [place] palpebral conjunctivae, no ptosis, dry buccal mucosa NECK : Supple, no tenderness CHEST : CTA, no tenderness HEART : RRR, no obvious murmurs ABDOMEN: Some distention, epigastric tenderness EXTREMITIES : No LE swelling/tenderness, palpable pulses, no other conspicuous deformities noted NEUROLOGIC : Coherent, no facial asymmetry, no other gross focality Principal Diagnosis Acute pancreatitis Discharge Exam Constitutional: WD/WN F in NAD HEENT: NC/AT. Mucous membranes moist. Lungs: Clear to auscultation, decreased, no wheezes rales or rhonchi CV: S1-S2, regular Abdomen: Soft, nontender (resolved) Extremities: No significant edema, moves extremities Neuro: awake, alert, answers appropriately, speech fluent, moves extremities Psych: Cooperative, normal mood Discharge Data Allergies Allergy/AdvReac Type Severity Reaction Status Date / Time ceftriaxone Allergy Unknown UNKNOWN ON Verified 05/09/25 03:13 [facility] MED LIST nickel AdvReac Severe SEE COMMENT Verified 05/09/25 03:13 verapamil AdvReac Severe SEVERE Verified 05/09/25 03:13 DIZZINESS, NEUROPATHY IN LEGS ciprofloxacin [From Cipro] AdvReac Intermediate NUMBNESS Verified 05/09/25 03:13 IN ABDOMEN & HANDS gabapentin AdvReac Intermediate Abdominal Verified 05/09/25 03:13 Pain levofloxacin AdvReac Intermediate NEURO Verified 05/09/25 03:13 COMPLICATIONS PER [facility] Consultations 05/09/25 02:52 ED Decision to Admit Stat 05/09/25 04:47 Consult Gastroenterology Routine Ordered Studies 05/09/25 00:23 CT angio chest PE protocol Stat FINDINGS: Few thin walled cyst is noted in bilateral upper lobes with surrounding pleural thickening and fibroatelectasis. Adequate contrast bolus without evidence of pulmonary embolism. The central airways are patent. No pleural effusion. The heart, aorta, and pulmonary arteries are of normal size and configuration. There are no appreciable coronary artery and aortic atherosclerotic calcifications. No pericardial effusion is identified. The thyroid is unremarkable. No mediastinal, hilar, or axillary lymphadenopathy is noted. No suspicious lytic or sclerotic osseous lesions are identified. IMPRESSION: 1. No evidence of pulmonary embolism. Few thin walled cyst is noted in bilateral upper lobes with surrounding pleural thickening and fibroatelectasis. 05/09/25 00:24 CT abd pelvis IV con only Stat FINDINGS: The visualized lung bases are clear. The liver is normal in size and reduced attenuation. Tiny cyst noted in left lobe.-stable. There is no intra or extrahepatic biliary ductal dilatation. Hepatic vasculature is patent. The gallbladder is present. The spleen, and adrenal glands are unremarkable. Pancreas appears bulky and shows moderateperipancreatic fat stranding and fluid collection - suggestive of acute pancreatitis. Mild reactive inflammatory wall thickening is noted involving gastric antrum, pylorus and duodenum. Minimal free fluid is noted in bilateral paracolic gutter and in pelvis. The kidneys are normal in size and attenuation. There is no hydronephrosis or perinephric fat stranding. No renal calculi or renal masses are identified. The ureters are normal in caliber and no ureteral calculi are seen. The bladder is normal in contour. Pelvic viscera are unremarkable. No imaging evidence of appendicitis. Abdominal and pelvic vasculature is patent. No aggressive appearing osseous lesions are identified. Diffuse atherosclerotic calcification is noted involving aorta iliac arteries. IMPRESSION: Acute edematous pancreatitis as described. No obvious necrotic component.-new finding. No obvious vascular complication.. Mild reactive inflammatory wall thickening is noted involving gastric antrum, pylorus and duodenum.-new finding. Minimal free fluid is noted in bilateral paracolic gutter and in pelvis.-new finding. Hepatomegaly with hepatic steatosis. -stable. Hospital Course (1) Acute pancreatitis: First episode-idiopathic versus autoimmune (2) Hypertension, uncontrolled: (3) Hyponatremia: (4) Prediabetes: Plan Medical history significant for hypertension, MASLD, GERD, chronic hyponatremia, seizure disorder, mood disorder, past tobacco abuse. Last confinement 2021 for acute on chronic hyponatremia secondary to gastroenteritis. Patient seen at the ER 3 days ago for left-sided rib pain without recollection of trauma. Patient discharged home after negative workup. Patient with first episode of pancreatitis, does not seem to be due to triglycerides or medications. Patient denies alcohol use. Question if this is idiopathic versus autoimmune. GI consulted - IgG Subclasses ordered (results pending) to assess for autoimmune pancreatitis. - Would recommend f/u CT scan vs. EUS evaluation with out patient GI follow up in 6 weeks. Acute pancreatitis without clear etiology. Patient adamantly denies regular alcohol ingestion. Her liver tests were normal on this admission. Somewhat unexplained there is a very high MCV level. High MCV levels can be associated with B12 or folate deficiency or alcohol. Folate (4.7) and B12 (187) levels - both levels low and replaced, recommend to cont. supplement The pancreas also appeared somewhat lobulated. Rule out autoimmune pancreati tis. Clinically she is much improved. Denies any abd. pain. Advanced diet again this AM, tolerated well. Patient had acute hypertensive response due to uncontrolled pain. Blood pressu re now very well-controlled on her usual meds, continue to monitor Hemoglobin A1c 5.9%, prediabetes, will need outpatient follow-up, no medical intervention at this time Total Time Total Time Spent Total Time Spent (In Minutes): 40 Discharge Plan Discharge Items Patient Disposition: Home - Self-Care Reason For Visit: HTN URG, PANCREATITIS Discharge Diagnosis: Acute pancreatitis Condition on Discharge: Fair Activity: Per Instructions section Non-emergency contact: Primary Care Provider Call non-emergency contact if: you have any medication questions and your symptoms worsen Follow-up/Referrals: Jeffry Bustos MD [Physician] - (The office will call you with a sooner appointment.) Tamiko Beltran DO [Primary Care Provider] - (Date & Time 05/16/2025 9:00 AM Provider: cOtavio De Jesus PA-C [facility], [facility] ) Diet: Low Fat Addtl Attending Provider Instructions: Follow up with primary care physician and gastroenterology (GI). You should be seen by primary care physician within 1 week. Make sure to stay well hydrated. It is recommended that you follow up with GI and have a follow up CT scan or endoscopic ultrasound done. Labs are still pending to evaluate for autoimmune causes of your pancreatitis. You were also found to be low in vit. B12 and folic acid, recommend to supplement. Pending Studies at Discharge: Yes Studies:: autoimmune pancreatitis/ work up Stand-Alone Forms: My [facility], Smoking Cessation Medications and DC Order Prescriptions: New cyanocobalamin (vitamin B-12) 500 mcg Tablet 1,000 mcg PO QAM Qty: 30 0RF Continued lamotrigine [Lamictal] 100 mg tablet 100 mg PO BID metoprolol succinate 50 mg tablet extended release 24 hr 75 mg PO QAM omeprazole 40 mg Capsule,Delayed Release(Dr/Ec) 40 mg PO BID metoprolol succinate 50 mg tablet extended release 24 hr 50 mg PO QPM sucralfate 100 mg/mL suspension 10 ml PO TID PRN (Reason: Heartburn) aspirin 81 mg Tablet,Delayed Release (Dr/Ec) 81 mg PO DAILY famotidine 20 mg tablet 20 mg PO HS lidocaine 5 % adhesive patch,medicated 1 patch transdermal Q12H PRN (Reason: Pain) sodium chloride 1,000 mg Tablet,Soluble 1,000 mg PO DAILY PNV no.95-ferrous fumarate-FA [] 28 mg iron- 800 mcg Tablet 1 tab PO DAILY oxycodone 5 mg tablet 5 mg PO Q8H PRN (Reason: pain) Qty: 15 0RF folic acid 1 mg Tablet 1 mg PO DAILY Qty: 30 0RF Discharge Orders: Discharge Order (Routine); Ordered 05/11/25 Ordered By: Zaheer Mccabe Admission Data Admit Date/Time: 05/09/25 03:09 Attending Provider: Zaheer Mccabe Admit Provider: Mike Yusuf Primary Care Provider: Tamiko Beltran Other Providers: Mike Yusuf; Matt Tineo; Jhon Panda; Shannon Warren; Marlen Mireles; Lena Timmons; Selin Joseph; Song Quick; Juanpablo Campos; Jeffry Bustos; Nila Mckay; Sharla Gardiner; Chen De Luna; Nida Watts; Andree Roque; Dilan Kwan; Abdullahi Anand; Miriam Mcelroy; Chris Ryan Jr; Prabhjot Hill.; Larry Herbert; Girma Manzano; Destiny Patel; Ritesh Landers I; Yolie Hernandez; Jung Spicer; Rishabh Lyon; Rudy White; Aiden Lynch; Aminata Parekh; Buzz Byrant
[2025-05-11 09:15] VITALS: PULSE 87
== END 2025-05-11 10:00 | disposition home or self-care (01) | DRG 439 ==
LOC: ED 00:08 → SUATTDRO 03:09 → 2W 03:09